=== PATIENT | female | born 1985 | race African-American/Black ===

== ENCOUNTER → 2021-07-13 12:56 | Outpatient (BNVA) | payer SELFPAY | PROVIDERS: PCP Family Medicine; Visit Provider Obstetrics & Gynecology ==

== ENCOUNTER 2022-03-04 14:02 | Outpatient (REF) | payer MEDICAID, SELFPAY ==
--- NOTE | ~2022-03-04 | US_ITS ---
EXAMINATION: US ABDOMEN COMPLETE CLINICAL INFORMATION: Fatty liver. COMPARISON: Ultrasound abdomen complete 09/25/2018 and 05/15/2014. TECHNIQUE: Real-time imaging of the abdominal viscera. FINDINGS: PANCREAS: The head and body the pancreas are normal. The tail is not well visualized due to bowel gas. ABDOMINAL AORTA: The proximal, mid, and distal segments are normal in caliber. INFERIOR VENA CAVA: Visualized portions are normal. LIVER: The liver is normal in size. The liver contour is normal. Echotexture is slightly increased suggestive of mild fatty infiltration. No focal hepatic lesion. There is no intrahepatic biliary duct dilatation seen. GALLBLADDER: Normal. The gallbladder is physiologically distended without evidence of stones, sludge, polyps, wall thickening or pericholecystic fluid. COMMON BILE DUCT: Normal in caliber measuring 0.3 cm in diameter. RIGHT KIDNEY: Normal. No hydronephrosis. No renal calculi or focal parenchymal lesions. The kidney measures 11.0 cm in maximum dimension. LEFT KIDNEY: Normal. No hydronephrosis. No renal calculi or focal parenchymal lesions. The kidney measures 11.7 cm in maximum dimension. SPLEEN: Normal. The spleen measures 9.6 cm in maximum dimension. FREE FLUID: None. US/US abdomen complete IMPRESSION: Slightly echogenic liver suggestive of mild fatty infiltration. Limited visualization of the tail the pancreas.
== END 2022-03-04 14:03 | disposition home or self-care (01) ==
LOC: HO.US 14:02
PROVIDERS: Visit Provider Family Medicine
DX: K76.0 Fatty (change of) liver, not elsewhere classified (principal)
CPT/HCPCS: 76700

== ENCOUNTER 2022-09-13 15:28 | Outpatient (REF) | payer MEDICAID, SELFPAY ==
[2022-09-13 18:28] LABS: CT PCR NOT DETECTED (Not Detect.); NG PCR NOT DETECTED (Not Detect.)
[2022-09-14 12:18] LABS: BV Int Neg Control Negative (Negative); BV Int Pos Control Positive (Positive)
[2022-09-22 11:38] LABS: HPV mRNA E6/E7 rflx Not Detected (Not Detected)
== END 2022-09-13 15:29 | disposition home or self-care (01) ==
LOC: HO.LNP 15:28
PROVIDERS: Visit Provider Advanced Practice Midwife
DX: Z01.419 Encounter for gynecological examination (general) (routine) without abnormal findings (principal); Z11.51 Encounter for screening for human papillomavirus (HPV)
CPT/HCPCS: 87480; 87491; 87510; 87591; 87624; 87660; 88142

== ENCOUNTER 2022-11-01 12:46 | Outpatient (REF) | payer MEDICAID, SELFPAY ==
--- NOTE | ~2022-11-01 | US_ITS ---
EXAMINATION: US PELVIS CLINICAL INFORMATION: History of fibroid COMPARISON: Ultrasound pelvis 09/04/2015 TECHNIQUE: Ultrasound of the pelvis is performed using both transabdominal and transvaginal transducers along with Doppler. Transvaginal imaging is performed due to inadequate visualization transabdominally. FINDINGS: UTERUS: The uterus is anteverted, anteflexed and measures 14.6 x 10.5 x 11.2 cm. The double wall endometrial thickness is 1.4 cm. The uterus is smooth in contour and has normal myometrial echogenicity. There are multiple hypoechoic lesions. 1. The largest lesion/fibroid measures 7.8 x 6.6 x 6.8 cm in the center of the body of the uterus. Previously it measured 6.5 x 6.7 x 6.7 cm. 2. Lesion in the posterior body of the uterus measures 2.0 x 1.4 x 1.8 cm. Previously it was not visualized. 3. Lesion in the right fundus of the uterus measures 4.6 x 4.2 x 3.9 cm. Previously it was not seen. ADNEXA: Right ovary measures 4.2 x 2.1 x 3.0 cm and volume 14.2 mL. No focal lesion seen. Previously right ovary measured 3.5 x 2.5 x 2.5 cm. Left ovary is not visualized. There is no free fluid in the cul-de-sac. US/US pelvic and transvaginal IMPRESSION: 1. Multiple uterine fibroids as described above. The largest fibroid is in the central uterus. 2. The right ovary is unremarkable. The left ovary is not seen. 3. There is no free fluid in the cul-de-sac.
[2022-11-01 16:20] LABS: Glucose Random 80 mg/dL (60-115)
[2022-11-02 06:43] LABS: Syphilis Screen Nonreactive (Nonreactive)
[2022-11-02 08:10] LABS: HBsAGNum1 0.39 S/CO (0.00-0.99); HIV AB/AG Nonreactive (Nonreactive); HIV Num 1 0.06 S/CO (0.00-0.99); Hepatitis B Surface Antigen Negative (Negative); ~HepC Num1 0.12 S/CO (0.00-0.79); ~Hepatitis C Antibody Nonreactive (Nonreactive)
== END 2022-11-01 12:47 | disposition home or self-care (01) ==
LOC: HO.US 12:46
PROVIDERS: PCP Family Medicine; Visit Provider Advanced Practice Midwife
DX: Z11.4 Encounter for screening for human immunodeficiency virus [HIV] (principal); Z11.3 Encounter for screening for infections with a predominantly sexual mode of transmission; Z86.018 Personal history of other benign neoplasm
CPT/HCPCS: 36415; 76830; 76856; 82947; 86780; 86803; 87340; 87389

== ENCOUNTER 2022-11-04 11:14 | Outpatient (REF) | payer MEDICAID, SELFPAY ==
[2022-11-04 13:38] LABS: Thyroid Stimulating Hormone 0.96 uIU/mL (0.32-4.0)
== END 2022-11-04 11:15 | disposition home or self-care (01) ==
LOC: HO.LAB 11:14
PROVIDERS: PCP Family Medicine; Visit Provider Advanced Practice Midwife
DX: E66.01 Morbid (severe) obesity due to excess calories (principal); D25.9 Leiomyoma of uterus, unspecified; I10 Essential (primary) hypertension; L65.9 Nonscarring hair loss, unspecified; Z31.9 Encounter for procreative management, unspecified; Z79.899 Other long term (current) drug therapy
CPT/HCPCS: 36415; 84443; 99212

== ENCOUNTER 2023-07-26 11:10 | Outpatient (REF) | payer MEDICAID, SELFPAY ==
[2023-07-29 17:23] LABS: TS Negative Control Passed; TS Panel A 0; TS Panel B 0; TS Positive Control Passed; TSpotTB Negative (Negative)
== END 2023-07-26 11:11 | disposition home or self-care (01) ==
LOC: HO.HHCL 11:10
PROVIDERS: Visit Provider Family Medicine
DX: Z00.00 Encounter for general adult medical examination without abnormal findings (principal)
CPT/HCPCS: 36415; 86481

== ENCOUNTER → 2023-08-25 13:30 | Outpatient (BNV) | payer MEDICAID, SELFPAY | PROVIDERS: PCP Family Medicine; Visit Provider Radiology Diagnostic Radiology | DX: N64.4 Mastodynia (principal) | CPT/HCPCS: 76642; 77066 ==

== ENCOUNTER 2023-08-25 13:39 | Outpatient (REF) | payer MEDICAID, SELFPAY ==
--- NOTE | ~2023-08-25 | US_ITS ---
EXAMINATION: MM DIAGNOSTIC DIGITAL BREAST TOMOSYNTHESIS, BILATERAL US BREAST LIMITED, BILATERAL MAMMOGRAPHY: CLINICAL INFORMATION: 38-year-old female, baseline exam, complaining of superior left breast pain 10:00 to 2:00 axis. COMPARISON: Mammography: None. Baseline exam. TECHNIQUE: Digital breast tomosynthesis is performed in both the craniocaudal and mediolateral oblique views along with computer-aided detection (CAD). Synthesized 2D images are generated from the tomosynthesis. In addition, additional bilateral full-field 3-D MLO views were obtained. FINDINGS: There are scattered areas of fibroglandular density (ACR BI-RADS breast composition Category b). Within the right breast at the 10:00 axis approximately 10 cm from the nipple, there is an oval 1 cm focal asymmetry, posterior one third, which will be evaluated by ultrasound. Otherwise, no suspicious masses, grouped calcifications, or areas of architectural distortion in the right breast. Within the left breast, there are are no suspicious masses, suspicious grouped calcifications, or areas of architectural distortion. There is no mammographic correlate to the area of breast pain in the 10:00 to 2:00 region. Only normal breast parenchyma is identified. ULTRASOUND: CLINICAL INFORMATION: 38-year-old female, baseline exam, complaining of superior left breast pain 10:00 to 2:00 axis. COMPARISON: None TECHNIQUE: Targeted sonographic evaluation of both breasts was performed using a high frequency linear transducer. The right breast was targeted at the 10:00 axis in the region of focal asymmetry seen on mammography. The left breast was targeted in the region of breast pain as described by the patient, 10-2 o'clock axis. Selected archived documentation. FINDINGS: RIGHT BREAST: In the 10:00 axis, 10 cm from the nipple, there is an oval either dirty cyst or possibly solid mass, wider than tall, circumscribed, possible mild through transmission, no internal color Doppler flow, measuring 0.9 x 0.4 x 1.0 cm. This is either a mildly complicated cyst or fibroadenoma or variant. It has benign features. Six-month interval follow-up mammography and ultrasound recommended. LEFT BREAST: There is no evidence of mass, abnormal shadowing, cystic abnormality, or edema within the soft tissue planes within the region of breast pain, 10:00 to 2:00 axis. No sonographic correlate present. US/US breast BI limited mamm only IMPRESSION: There are no findings suspicious for malignancy in either breast. Probably benign 1 cm circumscribed mass versus complicated cyst RIGHT breast 10:00 axis, for which six-month interval follow-up ultrasound and mammography recommended to ensure stability. No sonographic or mammographic correlate to the region of breast pain in the LEFT breast 10:00 to 2:00 axis. Recommend clinical management. OVERALL ASSESSMENT: Mammography: BI-RADS 3 - Probably benign finding(s) - 6 month follow-up suggested Ultrasound: BI-RADS 3 - Probably benign finding(s) - 6 month follow-up suggested RECOMMENDATION: 1. Patient should be managed based on the clinical impression left breast. 2. Otherwise, routine annual screening mammography at age 40. This patient's information was entered into a reminder system with a target due date for their next mammogram.
== END 2023-08-25 13:40 | disposition home or self-care (01) ==
LOC: HO.MAMMO 13:39
PROVIDERS: PCP Family Medicine; Visit Provider Family Medicine
DX: N64.4 Mastodynia (principal)
CPT/HCPCS: 76642; 77062; 77066

== ENCOUNTER 2023-12-15 09:45 | Outpatient (REF) | payer MEDICAID, SELFPAY ==
--- NOTE | ~2023-12-15 | XR_ITS ---
EXAMINATION: XR BILATERAL HIPS WITH AP PELVIS CLINICAL INFORMATION: Pain. COMPARISON: None available. TECHNIQUE: AP view of the pelvis and single views of each hip were obtained. FINDINGS: No fracture. Hip joint spaces are maintained. Alignment is anatomic. Sacroiliac joints and pubic symphysis are normal. No abnormal soft tissue calcifications. XR/XR hips AUDELIA min 3V IMPRESSION: Normal pelvis and hips.
== END 2023-12-15 09:46 | disposition home or self-care (01) ==
LOC: HO.HHCX 09:45
PROVIDERS: Visit Provider Registered Nurse
DX: G57.11 Meralgia paresthetica, right lower limb (principal)
CPT/HCPCS: 73522

== ENCOUNTER 2024-02-13 10:02 | Outpatient (REF) | payer MEDICAID, SELFPAY ==
--- NOTE | 2024-02-13 10:06 | EMG_ITS ---
Right tibial and peroneal motor studies were performed. Right superficial peroneal and sural sensory studies were performed and bilateral femoral lateral cutaneous sensory studies were performed. Right tibial H-reflex was obtained and paraspinal muscles were tested with a needle. IMPRESSION: 1. Bilateral lateral femoral cutaneous neuropathy. 2. Underlying mild sensory motor axonal peripheral neuropathy. MD HUONG Herrera/DEMETRIA / [id number]
== END 2024-02-13 10:03 | disposition home or self-care (01) ==
LOC: HO.NEURO 10:02
PROVIDERS: PCP Family Medicine; Visit Provider Family Medicine
DX: G57.11 Meralgia paresthetica, right lower limb (principal)
CPT/HCPCS: 95886; 95910

== ENCOUNTER 2024-02-23 12:58 | Outpatient (REF) | payer MEDICAID, SELFPAY ==
--- NOTE | ~2024-02-23 | US_ITS ---
EXAMINATION: US DIAGNOSTIC ULTRASOUND BREAST, RIGHT CLINICAL INFORMATION: 6 month follow-up for right breast mass versus complicated cyst 10:00 axis, 10 cm from the nipple, probably benign.. COMPARISON: 08/25/2023. TECHNIQUE: Ultrasound of the right breast is performed with real-time gama scale imaging and color Doppler. Attention was given to the abnormality at 10:00. FINDINGS: There is a stable oval probable complicated cyst with circumscribed margins, through-transmission, measuring 0.7 x 0.4 x 1.0 cm at the 10:00 axis of the right breast, 10 cm from the nipple. It is wider than tall. Internal echogenicity has become slightly more hypoechoic, near anechoic when compared with the prior exam. This strongly suggests this is a cyst. There is no associated color Doppler signal. This remains probably benign and six-month interval follow-up right breast ultrasound is recommended to ensure stability. US/US breast RT limited mamm only IMPRESSION: Complicated cyst 10:00 axis right breast as detailed, remaining probably benign, for which six-month interval follow-up again recommended to ensure stability or assess for interval change. ASSESSMENT: BI-RADS 3 - Probably benign finding(s) - 6 month follow-up suggested RECOMMENDATION: 6 Month F/U
== END 2024-02-23 12:59 | disposition home or self-care (01) ==
LOC: HO.MAMMO 12:58
PROVIDERS: PCP Family Medicine; Visit Provider Family Medicine
DX: R92.2 Inconclusive mammogram (principal)
CPT/HCPCS: 76642

== ENCOUNTER → 2024-02-23 14:30 | Outpatient (BNV) | payer MEDICAID, SELFPAY | PROVIDERS: PCP Family Medicine; Visit Provider Radiology Diagnostic Radiology | DX: N63.11 Unspecified lump in the right breast, upper outer quadrant (principal) | CPT/HCPCS: 76642 ==

== ENCOUNTER 2024-03-05 11:18 | Outpatient (REF) | payer MEDICAID, SELFPAY ==
[2024-03-06 11:31] LABS: Bacterial Vaginosis PCR POSITIVE (Negative); Candida Group PCR NOT DETECTED (Not Detect); Candida glab krusei PCR NOT DETECTED (Not Detect); Trichomonas vaginalis PCR NOT DETECTED (Not Detect)
[2024-03-06 11:38] LABS: CT PCR NOT DETECTED (Not Detect.); NG PCR NOT DETECTED (Not Detect.)
== END 2024-03-05 11:19 | disposition home or self-care (01) ==
LOC: HO.LAB 11:18
PROVIDERS: PCP Family Medicine; Visit Provider Advanced Practice Midwife
DX: Z01.419 Encounter for gynecological examination (general) (routine) without abnormal findings (principal); Z11.3 Encounter for screening for infections with a predominantly sexual mode of transmission; D25.9 Leiomyoma of uterus, unspecified; E66.01 Morbid (severe) obesity due to excess calories; I10 Essential (primary) hypertension; Z68.41 Body mass index [BMI] 40.0-44.9, adult
CPT/HCPCS: 0352U; 0353U; 99395

== ENCOUNTER 2024-03-05 11:18 | Outpatient (AMB) | payer MEDICAID, SELFPAY ==
[2024-03-05 11:42] VITALS: BP 122/70; BMI 44.7
--- NOTE | 2024-03-05 11:42 | MHC.OFFVIS ---
Vital Signs 03/05/24 11:42 Height 5 ft 6 in Weight 277 lb BMI 44.7 BP 122/70 Intake Visit Reasons: anat Design Maker Required: No Information Interpreted: clinical only Systems Software Engineer: Systems Software Engineer Present Allergies No Known Allergies Allergy (Verified 03/05/24 11:42) Medication List - Last Reconciled 03/05/24 by Valerie Santana CNM albuterol sulfate 90 mcg/actuation (Proventil HFA) 2 puffs inhalation Q4-6H PRN azelastine 2 sprays intranasal BID PRN blood pressure test kit-large As directed cetirizine 10 mg PO DAILY PRN docusate sodium 100 mg PO DAILY hydrochlorothiazide 25 mg PO DAILY loratadine 10 mg PO DAILY Is last menstrual period known: Yes Last menstrual period: 02/24/24 Do you need a note to return to daycare/school/sports/work: No HPI HPI anat: Details: Patient is here for an annual exam. In January which was soon after she had come back [facility] to trips to visit her in [place], she had her. And then a day or 2 after she had a gush blood and some thing kind of watery and then another day or 2 later she had something similar again her period in February was normal. She did a test at the time in January and it was negative. She is wondering what that might of been she is curious what is going on with her fibroids she would like full testing for STDs. She is at this time open to and has been trying for a while. [facility] Medical History High blood pressure Surgical History History of repair of ACL Social History Alcohol intake: current Alcohol intake frequency: holidays/special occasions only Substance Use Type: Marijuana Female Reproductive History Menstrual Age of Menarche: 12 Duration of menses: 3-5 days Date of last menstrual period: 02/24/24 control method: none Total pregnancies: 1 Full term: 0 Date of Mammogram: 09/13/22 (negative, previous pap 2018 wnl) History of abnormal mammogram: No Physical Exam Vital Signs: Last Vital Signs BP 122/70 03/05/24 11:42 BMI result Body Mass Index 44.7 Const General: healthy appearing, comfortable, no acute distress, well developed and alert Nutritional Appearance: average body habitus Orientation/consciousness: patient oriented x3 Limitations: no limitations HEENT Head: Yes normocephalic Neck Neck: Yes normal visual inspection Thyroid: Thyroid normal Chest Chest palpation & inspection: normal inspection of the chest Breast/axilla inspection: normal inspection of the breasts and normal inspection of the axillae Breast/axilla palpation: normal palpation of the breasts and normal palpation of the axillae Resp Effort & Inspection: normal respiratory effort GI Inspection: Yes normal to inspection, No Abdominal wall edema and No distended Palpation (GI): Soft to palpation and nontender Other: Normal external exam vagina pink and moist cervix nulliparous consistent with follicular phase round pink nulliparous os tiny amount of clear mucus at os at end of exam. Uterus slightly difficult to feel secondary to adipose. Very good muscle tone with Kegel. General: Yes bladder normal to palpation External Female Exam: normal external appearance and normal appearance of the urethra Speculum Exam - Vagina: normal appearance of the vagina, normal palpation and normal vaginal discharge Speculum Exam - Cervix: normal appearance of the cervix, normal palpation and nontender Bimanual exam- vagina & uterus: normal bimanual exam, normal palpation, uterine size normal, bladder normal to palpation, consistency normal, normal palpation, uterine mobility normal, uterine shape normal, No Cervical tenderness present, non-tender and no cervical motion tenderness Bimanual Exam- Adnexa, other: normal adnexae, no masses, normal and No adnexal tenderness Neuro General: patient oriented x3 Results Reviewed Results Reviewed: Name: Miguel Angel Hall Age/Sex: 37/F Attending: Valerie Santana CNM : 1985 Submitted by: Valerie Santana CNM Copies to: MR #: [id number] Status: DEP REF Collected: 09/13/22 Location: [facility] Received: 09/14/22 Interpretation Satisfactory for evaluation. Negative for intraepithelial lesion or malignancy. Coccobacilli consistent with shift in vaginal joshua. HPV mRNA E6/E7: NOT DETECTED This assay detects E6/E7 viral messenger RNA (mRNA) from 14 high-risk HPV types (16, 18, 31, 33, 35, 39, 45, 51, 52, 56, 58, 59, 66, 68) HPV testing performed by [facility], [place], [place]. See reference laboratory portion of the EMR for entire report. Clinical Information LMP: 09/06/22 Previous PAP test: 03/07/18, WNL Material Received ThinPrep-Cervical Electronically Signed By: Wanda Irvin 10/10/22 1553 The Pap Test is a screening procedure with the inherent possibility of both false negative and false positive results. Results should be interpreted in the context of historic and current clinical findings. Reliability of the Pap Test is enhanced by performing the test on a regular repetitive basis. Patient: Miguel Angel Hall Age/Sex: 37/F MR#: [id number] Page 1 of 1 Assessment & Plan Assessment & Plan (1) Cervical cancer screening: Comment: 09/13/22 pap= neg w neg hpv Code(s): Z12.4 - Encounter for screening for malignant neoplasm of cervix Category: Medical (2) Well woman exam with routine gynecological exam: Code(s): Z01.419 - Encounter for gynecological examination (general) (routine) without abnormal findings Category: Medical (3) Screen for sexually transmitted diseases: Code(s): Z11.3 - Encounter for screening for infections with a predominantly sexual mode of transmission Category: Medical (4) Fibroid uterus: Code(s): D25.9 - Leiomyoma of uterus, unspecified Category: Medical (5) Obesity, morbid, BMI 40.0-49.9: Code(s): E66.01 - Morbid (severe) obesity due to excess calories Category: Medical (6) High blood pressure: Code(s): I10 - Essential (primary) hypertension Category: Medical (7) Patient desires : Comment: Again reviewed risks. Working on weight loss, recommend multivitamin with folic acid daily. Code(s): Z31.9 - Encounter for procreative management, unspecified Category: Medical Plan -----Discussed in this visit the following: healthy balanced diet, regular and consistent exercise, getting recommended health screens, doing the best she can for her particular health concerns, kegel exercises, pap smear screening and followup recommendations, mammography screening and SBE, normal changes in cycles in her life stage--- . Again reviewed the risks of at her age and also being more irregular ovulation that can occur the possibility of a that was an early miscarriage that resulted in the unusual bleeding pattern in January can not be excluded even if the test was negative we will just simply never know. Recommend taking a multivitamin daily if she is open to . Which she is, discussed signs and symptoms of ovulation to optimize her chances given that she travels on a regular but irregular basis to [place] to be with her . She recently had a mammogram because she would some right-sided pain in her breast and her primary care recommended it and it was all negative and reassuring. She would be interested in another ultrasound to see if the fibroids have grown. She is working on weight loss and has lost from 285-277 today and feels good about that and her blood pressure was good today. She is interested in full STD testing will order for her. We will have a follow-up visit after the ultrasound. Orders: Orders Hepatitis B Surface Antigen Today Z11.3 - Encounter for screening for infections with a predominantly sexual mode of transmission Hepatitis C Antibody Today Z11.3 - Encounter for screening for infections with a predominantly sexual mode of transmission HIV Ab/Ag Today Z11.3 - Encounter for screening for infections with a predominantly sexual mode of transmission Syphilis Screen Today Z11.3 - Encounter for screening for infections with a predominantly sexual mode of transmission US pelvic and transvaginal Today D25.9 - Leiomyoma of uterus, unspecified Coding Level of Care Code Est Pt Prev Care [id number]([id number]) Diagnoses Cervical cancer screening Z12.4 Well woman exam with routine gynecological exam Z01.419 Screen for sexually transmitted diseases Z11.3 Fibroid uterus D25.9 Obesity, morbid, BMI 40.0-49.9 E66.01 High blood pressure I10 Patient desires Z31.9
== END 2024-03-05 13:00 | disposition home or self-care (01) ==
PROVIDERS: PCP Family Medicine; Visit Provider Advanced Practice Midwife
DX: Z12.4 Encounter for screening for malignant neoplasm of cervix (principal); Z01.419 Encounter for gynecological examination (general) (routine) without abnormal findings; Z11.3 Encounter for screening for infections with a predominantly sexual mode of transmission; D25.9 Leiomyoma of uterus, unspecified; E66.01 Morbid (severe) obesity due to excess calories; I10 Essential (primary) hypertension; Z31.9 Encounter for procreative management, unspecified
CPT/HCPCS: 99395

== ENCOUNTER 2024-03-11 14:29 | Outpatient (REF) | payer MEDICAID, SELFPAY ==
--- NOTE | ~2024-03-11 | US_ITS ---
EXAMINATION: US PELVIS CLINICAL INFORMATION: Leiomyoma of uterus, last menstrual period February 24, 2024. COMPARISON: November 01, 2022. TECHNIQUE: Ultrasound of the pelvis is performed using both transabdominal and transvaginal transducers along with Doppler. Transvaginal imaging is performed due to inadequate visualization transabdominally. FINDINGS: Uterus is anteverted and measures 13.8 x 8.5 x 10.0 cm, volume 610.7 mL. Endometrial thickness is 10 mm. Uterine masses characteristic of fibroids as follows: 5.7 x 6.3 x 5.7 cm, previously 7.8 x 6.7 x 6.8 cm. 2.8 x 2.9 x 2.4 cm, previously 4.6 x 4.2 x 3.9 cm. 1.8 x 1.7 x 1.5 cm, previously 2.0 x 1.4 x 1.8 cm. 2.3 x 2.8 x 2.3 cm, not previously documented. Small amount of free fluid. Trace amount of free fluid in the right adnexa. Right ovary measures 4.0 x 2.8 x 2.4 cm, volume 14.5 mL and is unremarkable. Left ovary measures 4.5 x 2.3 x 2.5 cm, volume of 13.4 mL and is unremarkable. Limited visualization due to enlarged fibroid uterus and bowel gas. Fibroids were better visualized on transabdominal ultrasound images. Echogenic foci along the periphery of the cervix, possibly representing calcifications. US/US pelvic and transvaginal IMPRESSION: 1. Enlarged, fibroid uterus. 2. Endometrial thickness is 10 mm. Limited visualization of the endometrium due to uterine fibroids. 3. Unremarkable bilateral ovaries.
== END 2024-03-11 14:30 | disposition home or self-care (01) ==
LOC: HO.US 14:29
PROVIDERS: PCP Family Medicine; Visit Provider Advanced Practice Midwife
DX: D25.9 Leiomyoma of uterus, unspecified (principal)
CPT/HCPCS: 76830; 76856

== ENCOUNTER 2024-03-12 09:35 | Outpatient (REF) | payer MEDICAID, SELFPAY ==
[2024-03-12 11:45] LABS: Hematocrit 35.1 % (37.0-47.0); Mean Corpuscular HGB Conc 31.3 g/dl (31.0-35.0); Mean Corpuscular Hemoglobin 25.5 pg (27.0-33.0); Mean Corpuscular Volume 81.4 fL (80.0-98.0); Mean Platelet Volume 10.2 fL (9.4-12.3); Platelet Count 302 X10*3/uL (160-400); Red Blood Count 4.31 X10*6/uL (4.20-5.50); Red Cell Distribution Width 15.7 % (11.0-16.0); White Blood Count 4.6 X10*3/uL (4.8-10.8)
[2024-03-12 11:58] LABS: Estimated Average Glucose 123 mg/dL; Hemoglobin A1c % 5.9 % (<6.0)
[2024-03-12 12:11] LABS: Alanine Aminotransferase 15 U/L (0-31); Albumin Level 4.4 g/dL (3.5-5.0); Alkaline Phosphatase 66 U/L (39-117); Anion Gap 15 (12-20); Aspartate Amino Transferase 15 U/L (5-31); Bilirubin Direct < 0.2 mg/dL (0.0-0.5); Bilirubin Total 0.2 mg/dL (0.0-1.0); Blood Urea Nitrogen 14 mg/dL (9-16); C Reactive Protein 0.93 mg/dL (< or = 0.50); Calcium 9.6 mg/dL (8.4-10.2); Carbon Dioxide 25 mmol/L (22-29); Chloride 104 mmol/L (96-108); Cholesterol 120 mg/dL (<200); Estimated Glomerular Filt Rate > 60; Glucose Random 90 mg/dL (60-115); HDL Cholesterol 48 mg/dL (>40); LDL Cholesterol Calculated 65 mg/dL (<100); Potassium 4.1 mmol/L (3.3-5.1); Sodium 140 mmol/L (135-145); Total Protein 8.1 g/dL (6.5-8.0); Triglycerides 38 mg/dL (<150)
[2024-03-12 12:23] LABS: Rheumatoid Factor < 13.0 IU/mL (<15.0)
[2024-03-12 12:30] LABS: Thyroid Stimulating Hormone 1.29 uIU/mL (0.32-4.0); Vitamin D 25-OH Total 25.1 ng/mL (>30)
[2024-03-12 12:32] LABS: Erythrocyte Sedimentation Rate 34 MM/HR (0-20)
[2024-03-12 12:34] LABS: Folate 8.7 ng/mL (> or = 4.0); Vitamin B12 482 pg/mL (200-900)
[2024-03-12 17:31] LABS: Creatinine Urine 151.83 mg/dL
[2024-03-13 08:03] LABS: ~HepC Num1 0.12 S/CO (0.00-0.79); ~Hepatitis C Antibody Nonreactive (Nonreactive)
[2024-03-13 08:07] LABS: HBS Num1 36.85 mIU/mL (0-7.99); HBc Num1 0.11 S/CO (0.00-0.79); HBsAGNum1 0.53 S/CO (0.00-0.99); HIV AB/AG Nonreactive (Nonreactive); HIV Num 1 0.06 S/CO (0.00-0.99); Hepatitis B Core Antibody Nonreactive (Nonreactive); Hepatitis B Surface Antigen Negative (Negative); ~HepC Num1 0.11 S/CO (0.00-0.79); ~Hepatitis B Surface Antibody REACTIVE (Nonreactive); ~Hepatitis C Antibody Nonreactive (Nonreactive)
[2024-03-13 08:15] LABS: Hepatitis A Antibody IgG REACTIVE (Nonreactive); ~Hepatitis A Antibody IgG 10.88 S/CO (0.00-0.99)
[2024-03-13 08:24] LABS: Syphilis Screen Nonreactive (Nonreactive)
[2024-03-13 08:58] LABS: Lyme Abs Screen <0.90 index
[2024-03-14 06:38] LABS: RPR Rapid Plasma Reagin NON-REACTIVE (NON-REACTIVE)
[2024-03-14 16:14] LABS: Anti Nuclear Antibody Screen NEGATIVE (NEGATIVE)
[2024-03-14 18:14] LABS: Methylmalonic Acid 62 nmol/L (87-318)
[2024-03-14 23:03] LABS: Prot Elec - Alpha1 0.3 g/dL (0.2-0.3); Prot Elec - Alpha2 0.8 g/dL (0.5-0.9); Prot Elec - Beta 1 0.6 g/dL (0.4-0.6); Prot Elec - Beta 2 0.5 g/dL (0.2-0.5); Prot Elec - Gamma 1.4 g/dL (0.8-1.7); Prot Elec - Total Protein 7.6 g/dL (6.1-8.1)
== END 2024-03-12 09:36 | disposition home or self-care (01) ==
LOC: HO.HHCL 09:35
PROVIDERS: Advanced Practice Midwife; Visit Provider Family Medicine
DX: I10 Essential (primary) hypertension (principal); G62.89 Other specified polyneuropathies; Z11.3 Encounter for screening for infections with a predominantly sexual mode of transmission
CPT/HCPCS: 36415; 80048; 80061; 80076; 82043; 82306; 82570; 82607; 82746; 83036; 83921; 84165; 84439; 84443; 85027; 85652; 86038; 86140; 86431; 86592; 86617; 86618; 86704; 86706; 86708; 86780; 86803; 87340; 87389

== ENCOUNTER 2024-03-13 09:14 | Outpatient (REF) | payer MEDICAID, SELFPAY ==
[2024-03-13 10:33] LABS: HBsAGNum1 0.42 S/CO (0.00-0.99); HIV AB/AG Nonreactive (Nonreactive); HIV Num 1 0.04 S/CO (0.00-0.99); Hepatitis B Surface Antigen Negative (Negative)
[2024-03-14 18:39] LABS: Homocysteine 7.6 umol/L (<10.4)
== END 2024-03-13 09:15 | disposition home or self-care (01) ==
LOC: HO.LAB 09:14
PROVIDERS: Absent Provider Advanced Practice Midwife; PCP Family Medicine; Visit Provider Family Medicine
DX: G62.89 Other specified polyneuropathies (principal); Z11.3 Encounter for screening for infections with a predominantly sexual mode of transmission
CPT/HCPCS: 36415; 83090; 87340; 87389

== ENCOUNTER 2024-03-25 09:00 | Outpatient (RCR) | payer MEDICAID, SELFPAY ==
[2024-02-15 10:09] VITALS: BP 125/69
--- NOTE | 2024-02-15 11:17 | MHC.PT.EP ---
[facility] [place] Office [place] Office [place] Office [address] Diana Burnham [address] [phone] F: [phone] F: [phone] F: [phone] F: [phone] Physical Therapy Plan of Care Date of Evaluation: 02/15/24 Date of Surgery: n/a Diagnosis: Trochanteric bursitis of right hip Assessment: Pt is a pleasant 38yo F who presents to PT with R hip pain radiating into RLE. Her pain does not radiate past her knee. She presents to PT with current impairments in pain, decreased lumbar ROM, posterior chain tightness, decreased hip/glute strength, soft tissue restrictions, impaired posture, and impaired body mechanics. She is limited functionally by bending, prolonged sitting, prolonged standing, and sleeping. She is an excellent candidate for skilled PT in order to address current impairments to facilitate return to PLOF. She is recommended to be seen 2x/week for 4 weeks and will be reassessed at that time Frequency and Duration: The patient will be seen 2x/week for 4 weeks Short Term Goals: Pt will be I with HEP to promote self management of symptoms Pt will have centralization of symptoms Manufacturing Assembler Goals: Pt will tolerate prolonged standing > 20 minutes without radicular symptoms Pt will demonstrate ability to squat and curing pickling packer object from the floor with proper mechanics Treatment Plan: Modalities to reduce pain, spasms and effusion. Manual therapy to restore motion and function. Therapeutic exercise to improve strength and flexibility. Neuromuscular re-education for posture and balance. Therapeutic activities to return to functional activities of daily living. Electronically signed by: Luisa Giraldo, PT, DPT Please sign and return to therapist. Thank you for your referral.
--- NOTE | 2024-03-25 12:56 | MHC.PT.DC ---
[facility] [place] [facility] [place] [facility] [place] Office [address] Diana Burnham [address] [phone] F: [phone] F: [phone] F: [phone] F: [phone] Physical Therapy Discharge Report Diagnosis: Trochanteric bursitis of right hip Date of Surgery: n/a Date of Evaluation: 02/15/24 Date of Discharge: 03/25/24 Treatments to Date: 9 Cancellations to Date: No Shows to Date: Discharge Status: Improved Function Independent with HEP Discharge Summary: Pt has made good progress throughout PT. She has had centralization of symptoms and has demonstrated improvements in postural awareness. She is independent with HEP. She is being D/C from skilled PT at this time. She has a copy of printed HEP and theraband Electronically signed by: Luisa Giraldo, PT, DPT Please sign and return to therapist. Thank you for your referral.
== END 2024-03-25 12:56 | disposition home or self-care (01) ==
LOC: HO.PT 09:00
PROVIDERS: PCP Family Medicine; Visit Provider Internal Medicine
DX: M70.61 Trochanteric bursitis, right hip (principal)
CPT/HCPCS: 97110; 97112; 97140; 97161

== ENCOUNTER 2024-03-27 09:27 | Outpatient (AMB) | payer MEDICAID, SELFPAY ==
--- NOTE | 2024-03-27 09:27 | MHC.OFFVIS ---
Intake Visit Reasons: TV Follow up US Crystal Inspector Required: No Allergies No Known Allergies Allergy (Verified 03/27/24 09:28) Medication List - Last Reconciled 03/27/24 by Valerie Santana CNM albuterol sulfate 90 mcg/actuation (Proventil HFA) 2 puffs inhalation Q4-6H PRN amitriptyline 10 mg PO BEDTIME azelastine 2 sprays intranasal BID PRN blood pressure test kit-large As directed cetirizine 10 mg PO DAILY PRN docusate sodium 100 mg PO DAILY hydrochlorothiazide 25 mg PO DAILY loratadine 10 mg PO DAILY Is last menstrual period known: Yes Last menstrual period: 03/22/24 HPI HPI TV Follow up US: Details: Lengthy tele visit to discuss patient's lab results and ultrasound results checking her fibroids as well as her efforts to conceive and concerns about fertility and full discussion about her health around these issues. I reviewed her ultrasound in great detail documenting changes to the fibroids as well as reviewed her menstrual cycle of the last 2 months and going forward when she could anticipate having her menses and peak days of ovulation/fertility. Her efforts at trying to conceive her complicated by the fact that her lives in [place] and she travels there a few times a year and sometimes it has not at the right time she is planning to travel the end of March and be there for possibly 2 months so we reviewed her history in great detail. She has hypertension and I reviewed her medication and suggested she make sure she have conversations with her primary about what medications were safe to be on she said she has already had these conversations she is working on weight loss she has stopped the medication she is taking for her neuropathy on her leg as it was not helping and she had some other blood test done that she wanted to review with me some of them she needs to review with her primary care provider.. Her last periods were as follows January 26 February 23 March 22 and going forward if is pattern help true she could be expected to have her. April 18 and May 15 just corresponding possible predicted ovulation periods of February 08 March 0704/04 and 05/01/24 4 there about with only the last 1 being when where she might be near her to try to conceive discussed achieving peak health as best as possible Augmentin her efforts with ovulation predictor kits and writing down her symptoms of vaginal cervical secretions and keeping track of them and I described what to look for in detail. In addition she may at her own discretion seek out gynecologic advice about her fibroids but she does not really have time before the next trip. Discussed that there are new procedures other than surgery to deal with fibroids and that may or may not be of benefit to her. [facility] Medical History High blood pressure Surgical History History of repair of ACL Social History Alcohol intake: current Alcohol intake frequency: holidays/special occasions only Substance Use Type: Marijuana Female Reproductive History Menstrual Age of Menarche: 12 Date of last menstrual period: 03/22/24 control method: none Date of last pap smear: 09/14/22 (neg.) History of abnormal pap smear: No Telehealth Telehealth Telehealth Platform: [facility] Location of provider rendering services: practice address Location of patient: address on file Telehealth method: video Patient verbally consented to treatment: Yes Patient verbally consented to billing insurance company: Yes Patient informed of any privacy concerns related to visit: Yes Minutes spent on Phone/Video with Pt.: 28 Results Reviewed Results Reviewed: Patient: Miguel Angel Hall MR#: [id number] : 1985 Acct:[id number] Age/Sex: 38 / F ADM Date: 03/11/24 Loc: HO.US Attending Dr: Valerie Santana CNM Ordering Physician: Valerie Santana CNM Date of Service: 03/11/24 Procedure(s): US pelvic and transvaginal Accession Number(s): [id number] cc: Juana Pink DO; Valerie Santana CNM~ EXAMINATION: US PELVIS CLINICAL INFORMATION: Leiomyoma of uterus, last menstrual period February 24, 2024. COMPARISON: November 01, 2022. TECHNIQUE: Ultrasound of the pelvis is performed using both transabdominal and transvaginal transducers along with Doppler. Transvaginal imaging is performed due to inadequate visualization transabdominally. FINDINGS: Uterus is anteverted and measures 13.8 x 8.5 x 10.0 cm, volume 610.7 mL. Endometrial thickness is 10 mm. Uterine masses characteristic of fibroids as follows: 5.7 x 6.3 x 5.7 cm, previously 7.8 x 6.7 x 6.8 cm. 2.8 x 2.9 x 2.4 cm, previously 4.6 x 4.2 x 3.9 cm. 1.8 x 1.7 x 1.5 cm, previously 2.0 x 1.4 x 1.8 cm. 2.3 x 2.8 x 2.3 cm, not previously documented. Small amount of free fluid. Trace amount of free fluid in the right adnexa. Right ovary measures 4.0 x 2.8 x 2.4 cm, volume 14.5 mL and is unremarkable. Left ovary measures 4.5 x 2.3 x 2.5 cm, volume of 13.4 mL and is unremarkable. Limited visualization due to enlarged fibroid uterus and bowel gas. Fibroids were better visualized on transabdominal ultrasound images. Echogenic foci along the periphery of the cervix, possibly representing calcifications. US/US pelvic and transvaginal IMPRESSION: 1. Enlarged, fibroid uterus. 2. Endometrial thickness is 10 mm. Limited visualization of the endometrium due to uterine fibroids. 3. Unremarkable bilateral ovaries. Dictated By: Faye Eason MD Signed By: <Electronically signed by Faye Eason MD in OV> 03/26/24 0706 DD/ 1457 TD/TT: [employer] Agent: v Assessment & Plan Assessment & Plan (1) Patient desires : Comment: Again reviewed risks. Working on weight loss, recommend multivitamin with folic acid daily. Code(s): Z31.9 - Encounter for procreative management, unspecified Category: Medical (2) High blood pressure: Code(s): I10 - Essential (primary) hypertension Category: Medical (3) Fibroid uterus: Code(s): D25.9 - Leiomyoma of uterus, unspecified Category: Medical (4) Cervical cancer screening: Comment: 09/13/22 pap= neg w neg hpv Code(s): Z12.4 - Encounter for screening for malignant neoplasm of cervix Category: Medical (5) Obesity, morbid, BMI 40.0-49.9: Code(s): E66.01 - Morbid (severe) obesity due to excess calories Category: Medical Plan Lengthy tele visit to discuss patient's lab results and ultrasound results checking her fibroids as well as her efforts to conceive and concerns about fertility and full discussion about her health around these issues. I reviewed her ultrasound in great detail documenting changes to the fibroids as well as reviewed her menstrual cycle of the last 2 months and going forward when she could anticipate having her menses and peak days of ovulation/fertility. Her efforts at trying to conceive her complicated by the fact that her lives in [place] and she travels there a few times a year and sometimes it has not at the right time she is planning to travel the end of March and be there for possibly 2 months so we reviewed her history in great detail. She has hypertension and I reviewed her medication and suggested she make sure she have conversations with her primary about what medications were safe to be on she said she has already had these conversations she is working on weight loss she has stopped the medication she is taking for her neuropathy on her leg as it was not helping and she had some other blood test done that she wanted to review with me some of them she needs to review with her primary care provider.. Her last periods were as follows January 26 February 23 March 22 and going forward if is pattern help true she could be expected to have her. April 18 and May 15 just corresponding possible predicted ovulation periods of February 08 March 0704/04 and 05/01/24 4 there about with only the last 1 being when where she might be near her to try to conceive discussed achieving peak health as best as possible Augmentin her efforts with ovulation predictor kits and writing down her symptoms of vaginal cervical secretions and keeping track of them and I described what to look for in detail. In addition she may at her own discretion seek out gynecologic advice about her fibroids but she does not really have time before the next trip. Discussed that there are new procedures other than surgery to deal with fibroids and that may or may not be of benefit to her. Coding Level of Care Code Tele Est Pt Level 3 (01258) Diagnoses Patient desires Z31.9 High blood pressure I10 Fibroid uterus D25.9 Cervical cancer screening Z12.4 Obesity, morbid, BMI 40.0-49.9 E66.01 Time Spent (min) 38 Comment 3cr/28 video w pt/7 charting=38
== END 2024-03-27 10:14 | disposition home or self-care (01) ==
LOC: HO.HWSM 09:27
PROVIDERS: PCP Family Medicine; Visit Provider Advanced Practice Midwife
DX: Z31.9 Encounter for procreative management, unspecified (principal); I10 Essential (primary) hypertension; D25.9 Leiomyoma of uterus, unspecified; Z12.4 Encounter for screening for malignant neoplasm of cervix; E66.01 Morbid (severe) obesity due to excess calories
CPT/HCPCS: 99213

== ENCOUNTER → 2024-03-27 09:27 | Outpatient (BNVA) | payer MEDICAID, SELFPAY | PROVIDERS: PCP Family Medicine; Visit Provider Advanced Practice Midwife ==

== ENCOUNTER 2024-07-10 10:57 | Outpatient (AMB) | payer MEDICAID, SELFPAY ==
[2024-07-10 11:03] VITALS: BP 136/80; BMI 44.7
--- NOTE | 2024-07-10 11:03 | A.OFFVIS_ITS ---
Vital Signs 07/10/24 11:03 Height 5 ft 6 in Weight 277 lb BMI 44.7 BP 136/80 Intake Visit Reasons: irregular menses Software Quality Assurance Specialist Required: No Information Interpreted: clinical only Allergies No Known Allergies Allergy (Verified 07/10/24 11:03) Medication List - Last Reconciled 07/10/24 by Valerie Santana CNM albuterol sulfate 90 mcg/actuation (Proventil HFA) 2 puffs inhalation Q4-6H PRN blood pressure test kit-large As directed docosahexaenoic acid ( DHA) mg PO Is last menstrual period known: Yes Last menstrual period: 07/08/24 Do you need a note to return to daycare/school/sports/work: No HPI HPI irregular menses: Details: Patient is here because she experienced an unusual popping sensation with a release of a little bit of clear water with a little bit of blood and she shows with her hand that it was about a 4 or5 inches long in amount but it was not a clot. She said it was watery with a little bit of blood in she had no pain associated with it whatsoever. she reports her LMP as being June 29 and it lasted 6 days. This event happened done Monday the and she went to the same day care office downstairs at the [facility] she said that they recommended that she see Gynecology and they did a full exam w pelvic and tests and said she had no infection and there was nothing else there. She has been following her cycles because she has been trying to get . Her previous menses was June 01 and it lasted 7 days she sees her in [place] and when she goes there she does fine and has no problems with blood pressure or anything and she treats herself with herbs and she is fine when she is there. on June 22 she returned from [place]. she said that they did a test on Monday the , at the same day care center and it was also negative. (she had menses since she she returned from [place] as well on 06/29/24,.) She is not sexually active when she is here. She knows she has fibroids. she left on her trip to [place] after a discussion of her fibroids earlier this year, and I had recommended to her that she consider seeing somebody who could give her better advice about whether not she should do something about her fibroids and would that help her get , as she has been trying for some time. on my advice she did get the ovulation predictor kits, but says that she did not give her clear answers and it does not line up with the information on her madai about her predicted ovulation. She says the last labor expediter she spoke to told her to leave the fibroids alone. I shared with her that I could not advise her one way or the other as i am not a specialist nor infertility specialist nor labor expediter, but I recommended that she have a conversation about the fertility questioned and the fibroids with somebody who is better equipped to give her advice about this then I. This is the advice I gave her previously as well. I offered to repeat the ultrasound to see if there was any change in anything, I also offered to do an exam and check for any thing that I might see that could have popped and caused that sensation she experienced, but she declined and she said she would leave it alone she appeared frustrated. and we did review all of these options about 3 times, and I did ask her what she wanted, and she said she just wanted to leave it alone . the patient left w no exam and decline offers for any further testing. and indicated reluctance to follow recomendations to see any specialists at [facility], [place]. [facility] Medical History High blood pressure Surgical History History of repair of ACL Social History Alcohol intake: current Alcohol intake frequency: holidays/special occasions only Substance Use Type: Marijuana Female Reproductive History Menstrual Age of Menarche: 12 Duration of menses: <3 days Date of last menstrual period: 07/08/24 control method: none Total pregnancies: 1 Full term: 0 Physical Exam Vital Signs: Last Vital Signs BP 136/80 07/10/24 11:03 BMI result Body Mass Index 44.7 Assessment & Plan Assessment & Plan (1) Patient desires : Comment: Again reviewed risks. Working on weight loss, recommend multivitamin with folic acid daily. Code(s): Z31.9 - Encounter for procreative management, unspecified Category: Medical (2) Fibroid uterus: Code(s): D25.9 - Leiomyoma of uterus, unspecified Category: Medical (3) Obesity, morbid, BMI 40.0-49.9: Code(s): E66.01 - Morbid (severe) obesity due to excess calories Category: Medical Plan Patient is here because she experienced an unusual popping sensation with a release of a little bit of clear water with a little bit of blood and she shows with her hand that it was about a 4 or5 inches long in amount but it was not a clot. She said it was watery with a little bit of blood in she had no pain associated with it whatsoever. she reports her LMP as being June 29 and it lasted 6 days. This event happened done Monday the and she went to the same day care office downstairs at the [facility] she said that they recommended that she see Gynecology and they did a full exam w pelvic and tests and said she had no infection and there was nothing else there. She has been following her cycles because she has been trying to get . Her previous menses was June 01 and it lasted 7 days she sees her in [place] and when she goes there she does fine and has no problems with blood pressure or anything and she treats herself with herbs and she is fine when she is there. on June 22 she returned from [place]. she said that they did a test on Monday the , at the same day care center and it was also negative. (she had menses since she she returned from [place] as well on 06/29/24,.) She is not sexually active when she is here. She knows she has fibroids. she left on her trip to [place] after a discussion of her fibroids earlier this year, and I had recommended to her that she consider seeing somebody who could give her better advice about whether not she should do something about her fibroids and would that help her get , as she has been trying for some time. on my advice she did get the ovulation predictor kits, but says that she did not give her clear answers and it does not line up with the information on her madai about her predicted ovulation. She says the last labor expediter she spoke to told her to leave the fibroids alone. I shared with her that I could not advise her one way or the other as i am not a specialist nor infertility specialist nor labor expediter, but I recommended that she have a conversation about the fertility question and the fibroids with somebody who is better equipped to give her advice about this then I. This is the advice I gave her previously as well. I offered to repeat the ultrasound to see if there was any change in anything, I also offered to do an exam and check for any thing that I might see that could have popped and caused that sensation she experienced, but she declined and she said she would leave it alone she appeared frustrated. and we did review all of these options about 3 times, and I did ask her what she wanted, and she said she just wanted to leave it alone . the patient left w no exam and decline offers for any further testing. and indicated reluctance to follow recomendations to see any specialists at [facility] [place]. Coding Level of Care Code Est Pt Level 3 (22456) Diagnoses Patient desires Z31.9 Fibroid uterus D25.9 Obesity, morbid, BMI 40.0-49.9 E66.01
== END 2024-07-10 11:56 | disposition home or self-care (01) ==
PROVIDERS: PCP Family Medicine; Visit Provider Advanced Practice Midwife
DX: Z31.9 Encounter for procreative management, unspecified (principal); D25.9 Leiomyoma of uterus, unspecified; E66.01 Morbid (severe) obesity due to excess calories
CPT/HCPCS: 99213

== ENCOUNTER → 2024-07-10 10:57 | Outpatient (BNVA) | payer MEDICAID, SELFPAY | PROVIDERS: PCP Family Medicine; Visit Provider Advanced Practice Midwife | DX: Z31.9 Encounter for procreative management, unspecified (principal); D25.9 Leiomyoma of uterus, unspecified; E66.01 Morbid (severe) obesity due to excess calories | CPT/HCPCS: 99212 ==

== ENCOUNTER 2024-08-29 11:06 | Outpatient (REF) | payer MEDICAID, SELFPAY ==
--- NOTE | ~2024-08-29 | US_ITS ---
EXAMINATION: US DIAGNOSTIC ULTRASOUND BREAST, RIGHT CLINICAL INFORMATION: Follow-up for probable complicated cyst in the right breast at 10:00 on ultrasound.. COMPARISON: Comparison is made with relevant prior imaging. TECHNIQUE: Ultrasound of the breast is performed with real-time gama scale imaging and color Doppler. FINDINGS: Targeted color Doppler ultrasound scanning at 10:00 7 cm from the nipple in the right breast demonstrate interval decreased size of minimally complicated cyst which today measures approximately 4 x 2 x 5 mm previously measured 7 x 4 x 10 mm. There is no internal vascular flow. Results are discussed with the patient at time of visit. US/US breast RT limited mamm only IMPRESSION: Interval decrease of minimally corticated cyst in the right breast at 10:00 7 cm from nipple. Benign. Recommend screening mammography in one year when the patient turns 40. ASSESSMENT: BI-RADS 2: Benign RECOMMENDATION: Routine annual mammography screening age 40. This patient's information was entered into a reminder system with a target due date for their next mammogram. Electronically signed by: Ami Monteiro DO 09/06/2024 12:23 PM EVE
== END 2024-08-29 11:07 | disposition home or self-care (01) ==
LOC: HO.MAMMO 11:06
PROVIDERS: Visit Provider Family Medicine
DX: N63.11 Unspecified lump in the right breast, upper outer quadrant (principal)
CPT/HCPCS: 76642

== ENCOUNTER → 2024-08-29 11:30 | Outpatient (BNV) | payer MEDICAID, SELFPAY | PROVIDERS: Visit Provider Internal Medicine | DX: N60.01 Solitary cyst of right breast (principal) | CPT/HCPCS: 76642 ==

== ENCOUNTER 2025-07-08 13:03 | Outpatient (REF) | payer MEDICAID, SELFPAY ==
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
--- NOTE | ~2025-07-08 | XR_ITS ---
EXAMINATION: XR HIP, LEFT CLINICAL INFORMATION: L hip pain/locking, radiating to low back COMPARISON: 12/15/2023 TECHNIQUE: Two views of the left hip. FINDINGS: No fracture, dislocation, or suspicious bone lesion. There is normal alignment. 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 There is mild posterior acetabular over coverage, a finding which can be associated with pincer-type GASTON. There is no soft tissue abnormality. XR/XR hip LT min 2V IMPRESSION: No acute bony findings of the left hip. Electronically signed by: Axel Cisneros MD 07/08/2025 01:47 PM EDT
--- NOTE | ~2025-07-08 | XR_ITS ---
EXAMINATION: XR LUMBAR SPINE 2-3 VIEWS HISTORY: L hip pain/locking, radiating to low back COMPARISON: There are no prior studies for comparison. FINDINGS: AP, lateral, and coned down views of the lumbar spine are submitted. Osseous mineralization is normal. Five nonrib-bearing lumbar vertebral bodies are identified, maintaining normal height and alignment without evidence of fracture or spondylolisthesis. There is minimal anterior spurring at L3 and L4. The intervertebral disc spaces are preserved. The posterior elements are intact. The visualized paraspinal soft tissues are unremarkable. XR/XR lumbar spine 2-3V IMPRESSION: Minimal degenerative changes. Electronically signed by: Frederick Jennings MD 07/08/2025 01:44 PM EDT
--- OUTSIDE RECORDS SUMMARY | 2025-07-08 11:30 | XMS_ITS | Encounter Summary ---
Author Organization [employer] Address [address] [place] [address] [address] [place] [address] Care Team Providers Care Canal [employer] Captain Name Role Phone Juana Pink DO Primary Care Provider + [phone] Reason for Visit * Reason Comments Hypertension Encounter Details Date Type Department Care Team ([facility] st Contact Info) Description 07/08/2025 11:30 AM EDT Office Visit [facility] [address] [place], [place] [phone] Juana Pink DO [address] [place], [place] [phone] Essential hypertension (Primary Dx); Fatty liver; Allergic rhinitis, unspecified seasonality, unspecified trigger; Meralgia paresthetica of right side; Peripheral polyneuropathy; Patient desires ; Daily headache; Sleep-disordered breathing; Healthcare maintenance; Dietary counseling; Exercise counseling; Acute pain of left hip Social History Tobacco Use Types Packs/Day Years Used Date Smoking Tobacco: Never Passive Smoke Exposure: Never Smokeless Tobacco: Never Tobacco Cessation:Counseling Given: Not Answered Alcohol Use Standard Drinks/Week Comments Not Currently 0 (1 standard drink = 0.6 oz pur e alcohol) Depression Answer Date Recorded Patient Health Questionnaire-9 Score 4 07/08/2025 Patient Health Questionnaire-9 Score 4 07/08/2025 Last PHQ-9: Questionnaire Data Not on file 0 07/08/2025 Housing Stability Answer Date Recorded What is your housing situation today? I have eleanor law 07/08/[address] you li ve. Do you have problems with any of the following? None of the above 07/08/2025 Food Insecurity Answer Date Recorded Within the past 12 months, y ou worried that your food would run out before you got money to buy more: Sometimes True 2024 Within the past 12 months,th e food you bought just didn't last and you didn't have enough money to get more: Sometimes True 07/08/2025 Transportation Answer Date Recorded In the past 12 months, has l ack of transportation kept you from medical appts, meetings, work or from getting things needed for daily living? No 12/06/2023 Utilities Answer Date Recorded In the past 12 months, has t he mascotsecret, gas, oil or water company threatened to shut off services in your home? Yes 07/08/2025 Depression Answer Date Recorded Patient Health Questionnaire-2 Score 2 07/08/2025 Internet Access Answer Date Recorded Internet Access Q1 Yes 07/08/2025 Internet Access Q2 Not on file 07/08/2025 Comments No Sex and Gender Information Value Date Recorded Sex Assigned at Female 08/22/2022 10:21 AM EDT Legal Sex Female 10:21 AM EDT Gender Identity Female 08/22/2022 10:21 AM EDT Sexual Orientation Straight 08/22/2022 10 :21 AM EDT documented as of this encounter Last Filed Vital Signs Vital Sign Reading Time Taken Comments Blood Pressure 140/100 07/08/2025 11:46 AM EDT Pulse 84 07/08/2025 11:46 AM EDT Temperature 36.2 C (97.1 F) 07/08/2025 11:46 AM EDT Respiratory Rate 20 07/08/2025 11:46 AM EDT Oxygen Saturation - - Inhaled Oxygen Concentration - - Weight 130 kg (285 lb 12.8 oz) 07/08/2025 11:46 AM EDT Height 167.6 cm (5' 6 ) 07/08/2025 11:46 AM EDT Body Mass Index 46.13 07/08/2025 11:46 AM EDT documented in this encounter Functional Status * Over the past 2 weeks, how often have you been bothered by any of the following problems? Question Answer Date of Assessment Author Patient Health Questionnaire-2 Score 2 07/08/2025 11:48 AM EDT Debra Everett MA * Little interest or pleasure in doing things Answer Date of Assessment Author Not at all 07/08/2025 11:48 AM EDT Debra Leija MA * Feeling down, depressed, or hopeless Answer Date of Assessment Author More than half the days 07/08/2025 11:48 AM EDT Debra Núñez MA * Trouble falling or staying asleep, or sleeping too much Answer Date of Assessment Author Not at all 07/08/2025 11:48 AM EDT Debra Leija MA * Feeling tired or having little energy Answer Date of Assessment Author Several days 07/08/2025 11:48 AM EDT Debra Leija MA * Poor appetite or overeating Answer Date of Assessment Author Not at all 07/08/2025 11:48 AM EDT Debra Leija MA * Feeling bad about yourself - or that you are a failure or have let yourself or your family down Answer Date of Assessment Author Several days 07/08/2025 11:48 AM EDT Debra Leija MA * Trouble concentrating on things, such as reading the newspaper or watching television Answer Date of Assessment Author Not at all 07/08/2025 11:48 AM EDT Debra Leija MA * Moving or speaking so slowly that other people could have noticed? Or the opposite - being so fidgety or restless that you have been moving around a lot more than usual. Answer Date of Assessment Author Not at all 07/08/2025 11:48 AM EDT Debra Leija MA * Thoughts that you would be better off or hurting yourself in some way Answer Date of Assessment Author Not at all 07/08/2025 11:48 AM EDT Debra Leija MA * Patient Health Questionnaire-9 Score Answer Date of Assessment Author 4 07/08/2025 11:48 AM EDT Debra Leija MA * How difficult have these problems made it for you to do your work, take care of things at home, or get along with other people? Answer Date of Assessment Author Somewhat difficult 07/08/2025 11:48 AM EDT Debra Kennedy MA * Over the last 2 weeks, how often have you been bothered by any of the following problems? Question Answer Date of Assessment Author Feeling nervous, anxious, or on edge 2 07/08/2025 11:48 AM EDT Debra Núñez MA Not being able to stop or control worrying 0 07/08/2025 11:48 AM EDT Debra Núñez MA Worrying too much about different things 0 07/08/2025 11:48 AM EDT Debra Núñez MA Trouble relaxing 2 07/08/2025 11:48 AM EDT Debra Núñez MA Being so restless that it is hard to sit still 2 07/08/2025 11:48 AM EDT Debra Núñez MA Becoming easily annoyed or irritable 0 07/08/2025 11:48 AM EDT Debra Nñúez MA Feeling afraid as if something awful might happen 2 07/08/2025 11:48 AM EDT Debra Avila MA MARGOTH-7 Total Score 8 07/08/2025 11:48 AM EDT Debra Núñez MA documented as of this encounter Plan of Treatment Scheduled Orders Name Type Priority Associated Diagnoses Orde r Schedule T4, Free Lab Routine Essential hypertension Fatty liver Allergic rhinitis, unspecified seasonality, unspecified trigger Meralgia paresthetica of right side Peripheral polyneuropathy Patient desires Daily headache Sleep-disordered breathing Healthcare maintenance Dietary counseling Exercise counseling Acute pain of left hip Expected: 07/08/2025 (Approximate), Expires: 07/08/2026 Vitamin D, 25-Hydroxy, Total, Immunoassay Lab Routine Essential hypertension Fatty liver Allergic rhinitis, unspecified seasonality, unspecified trigger Meralgia paresthetica of right side Peripheral polyneuropathy Patient desires Daily headache Sleep-disordered breathing Healthcare maintenance Dietary counseling Exercise counseling Acute pain of left hip Expected: 07/08/2025 (Approximate), Expires: 07/08/2026 Lipid Panel, Standard Lab Routine Essential hypertension Fatty liver Allergic rhinitis, unspecified seasonality, unspecified trigger Meralgia paresthetica of right side Peripheral polyneuropathy Patient desires Daily headache Sleep-disordered breathing Healthcare maintenance Dietary counseling Exercise counseling Acute pain of left hip Expected: 07/08/2025 (Approximate), Expires: 07/08/2026 TSH Lab Routine Essential hypertension Fatty liver Allergic rhinitis, unspecified seasonality, unspecified trigger Meralgia paresthetica of right side Peripheral polyneuropathy Patient desires Daily headache Sleep-disordered breathing Healthcare maintenance Dietary counseling Exercise counseling Acute pain of left hip Expected: 07/08/2025 (Approximate), Expires: 07/08/2026 Hepatic Function Panel Lab Routine Essential hypertension Fatty liver Allergic rhinitis, unspecified seasonality, unspecified trigger Meralgia paresthetica of right side Peripheral polyneuropathy Patient desires Daily headache Sleep-disordered breathing Healthcare maintenance Dietary counseling Exercise counseling Acute pain of left hip Expected: 07/08/2025 (Approximate), Expires: 07/08/2026 Basic Metabolic Panel Lab Routine Essential hypertension Fatty liver Allergic rhinitis, unspecified seasonality, unspecified trigger Meralgia paresthetica of right side Peripheral polyneuropathy Patient desires Daily headache Sleep-disordered breathing Healthcare maintenance Dietary counseling Exercise counseling Acute pain of left hip Expected: 07/08/2025 (Approximate), Expires: 07/08/2026 Albumin, Random Urine W/Creatinine Lab Routine Essential hypertension Fatty liver Allergic rhinitis, unspecified seasonality, unspecified trigger Meralgia paresthetica of right side Peripheral polyneuropathy Patient desires Daily headache Sleep-disordered breathing Healthcare maintenance Dietary counseling Exercise counseling Acute pain of left hip Expected: 07/08/2025 (Approximate), Expires: 07/08/2026 Chlamydia/N. Gonorrhoeae RNA, TMA, Urogenitial Microbiology Routine Essential hypertension Fatty liver Allergic rhinitis, unspecified seasonality, unspecified trigger Meralgia paresthetica of right side Peripheral polyneuropathy Patient desires Daily headache Sleep-disordered breathing Healthcare maintenance Dietary counseling Exercise counseling Acute pain of left hip Ordered: 07/08/2025 HIV-1/2 Antigen and Antibodies, Fourth Generation, with Reflexes Lab Routine Essential hypertension Fatty liver Allergic rhinitis, unspecified seasonality, unspecified trigger Meralgia paresthetica of right side Peripheral polyneuropathy Patient desires Daily headache Sleep-disordered breathing Healthcare maintenance Dietary counseling Exercise counseling Acute pain of left hip Expected: 07/08/2025 (Approximate), Expires: 07/08/2026 Hepatitis C Antibody with Reflex to HCV, RNA, Quantitative, Real-Time PCR Lab Routine Essential hypertension Fatty liver Allergic rhinitis, unspecified seasonality, unspecified trigger Meralgia paresthetica of right side Peripheral polyneuropathy Patient desires Daily headache Sleep-disordered breathing Healthcare maintenance Dietary counseling Exercise counseling Acute pain of left hip Expected: 07/08/2025, Expires: 07/08/2026 RPR (Monitor) with Reflex to Titer Lab Routine Essential hypertension Fatty liver Allergic rhinitis, unspecified seasonality, unspecified trigger Meralgia paresthetica of right side Peripheral polyneuropathy Patient desires Daily headache Sleep-disordered breathing Healthcare maintenance Dietary counseling Exercise counseling Acute pain of left hip Expected: 07/08/2025, Expires: 07/08/2026 Alpha-Fetoprotein, Tumor Marker Lab Routine Essential hypertension Fatty liver Allergic rhinitis, unspecified seasonality, unspecified trigger Meralgia paresthetica of right side Peripheral polyneuropathy Patient desires Daily headache Sleep-disordered breathing Healthcare maintenance Dietary counseling Exercise counseling Acute pain of left hip Expected: 07/08/2025 (Approximate), Expires: 07/08/2026 documented as of this encounter Procedures Procedure Name Priority Date/Time Associated Diagnosis Comments XR HIP 2 OR 3 VIEWS LEFT Routine 07/08/2025 1:38 PM EDT Acute pain of left hip XR LUMBAR SPINE 2-3 VIEWS Routine 07/08/2025 1:38 PM EDT Acute pain of left hip CBC Routine 07/08/2025 1:09 PM EDT Essential hypertension Fatty liver Allergic rhinitis, unspecified seasonality, unspecified trigger Meralgia paresthetica of right side Peripheral polyneuropathy Patient desires Daily headache Sleep-disordered breathing Healthcare maintenance Dietary counseling Exercise counseling Acute pain of left hip HEMOGLOBIN A1C Routine 07/08/2025 1:09 PM EDT Essential hypertension Fatty liver Allergic rhinitis, unspecified seasonality, unspecified trigger Meralgia paresthetica of right side Peripheral polyneuropathy Patient desires Daily headache Sleep-disordered breathing Healthcare maintenance Dietary counseling Exercise counseling Acute pain of left hip documented in this encounter Results * XR Lumbar Spine 2-3 Views (07/08/2025 1:38 PM EDT) Anatomical Region Laterality Modality Spine, L-spine Radiographic Temitope ging 07/08/2025 1:38 PM EDT Narrative 07/08/2025 1:48 PM EDT [address] [address] XRay Report Signed Patient: Miguel Angel Hall MR#: [id number] : 1985 Acct:[id number] Age/Sex: 40 / F ADM Date: 07/08/25 Loc: HO.HHCX Attending Dr: Juana Pink DO Ordering Physician: Juana Pink DO Date of Service: 07/08/25 Procedure(s): XR lumbar spine 2-3V Accession Number(s): [id number] cc: Juana Pink DO Reason for Exam: L hip pain/locking, radiating to low back EXAMINATION: XR LUMBAR SPINE 2-3 VIEWS HISTORY: L hip pain/locking, radiating to low back COMPARISON: There are no prior studies for comparison. FINDINGS: AP, lateral, and coned down views of the lumbar spine are submitted. Osseous mineralization is normal. Five nonrib-bearing lumbar vertebral bodies are identified, maintaining normal height and alignment without evidence of fracture or spondylolisthesis. There is minimal anterior spurring at L3 and L4. The intervertebral disc spaces are preserved. The posterior elements are intact. The visualized paraspinal soft tissues are unremarkable. XR/XR lumbar spine 2-3V IMPRESSION: Minimal degenerative changes. Electronically signed by: Frederick Jennings MD 07/08/2025 01:44 PM EDT Dictated By: Frederick Jennings MD Signed By: <Electronically signed by Frederick Jennings MD in OV> 07/08/25 1344 DD/ 1338 TD/TT: 07/08/25 1339 Executive Vice President Of Sales: Procedure Note Donotuseinterpreter, Image - 07/08/[address] [address] XRay Report Signed Patient: Miguel Angel Hall TMR#: [id number] : 1985Acct:[id number] Age/Sex: 40 / FADM Date: 07/08/25 Loc: HO.HHCX Attending Dr: uJana Pink DO Ordering Physician: Juana Pink DO Date of Service: 07/08/25 Procedure(s): XR lumbar spine 2-3V Accession Number(s): [id number] cc: Juana Pink DO Reason for Exam: L hip pain/locking, radiating to low back EXAMINATION: XR LUMBAR SPINE 2-3 VIEWS HISTORY: L hip pain/locking, radiating to low back COMPARISON: There are no prior studies for comparison. FINDINGS: AP, lateral, and coned down views of the lumbar spine are submitted. Osseous mineralization is normal. Five nonrib-bearing lumbar vertebral bodies are identified, maintaining normal height and alignment without evidence of fracture or spondylolisthesis. There is minimal anterior spurring at L3 and L4. The intervertebral disc spaces are preserved. The posterior elements are intact. The visualized paraspinal soft tissues are unremarkable. XR/XR lumbar spine 2-3V IMPRESSION: Minimal degenerative changes. Electronically signed by: Frederick Jennings MD 07/08/2025 01:44 PM EDT Dictated By: Frederick Jennings MD Signed By: <Electronically signed by Frederick Jennings MD in OV> 07/08/25 1344 DD/ 1338 TD/TT: 07/08/25 1339 Executive Vice President Of Sales: us Juana Pink DO IMG XR PROCEDURES Edited Res ult - Final * XR Hip 2 or 3 Views Left (07/08/2025 1:38 PM EDT) Anatomical Region Laterality Modality Lower Extremities, Hip Left Radiograp hic Imaging 07/08/2025 1:38 PM EDT Narrative 07/08/2025 1:50 PM EDT [facility] [address] [place] [address] XRay Report Signed Patient: Miguel Angel Hall MR#: [id number] : 1985 Acct:[id number] Age/Sex: 40 / F ADM Date: 07/08/25 Loc: HO.HHCX Attending Dr: Juana Pink DO Ordering Physician: Juana Pink DO Date of Service: 07/08/25 Procedure(s): XR hip LT min 2V Accession Number(s): [id number] cc: Juana Pink DO Reason for Exam: L hip pain/locking, radiating to low back EXAMINATION: XR HIP, LEFT CLINICAL INFORMATION: L hip pain/locking, radiating to low back COMPARISON: 12/15/2023 TECHNIQUE: Two views of the left hip. FINDINGS: No fracture, dislocation, or suspicious bone lesion. There is normal alignment. 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 There is mild posterior acetabular over coverage, a finding which can be associated with pincer-type GASTON. There is no soft tissue abnormality. XR/XR hip LT min 2V IMPRESSION: No acute bony findings of the left hip. Electronically signed by: Axel Cisneros MD 07/08/2025 01:47 PM EDT RP Dictated By: Axel Cisneros MD Signed By: <Electronically signed by Axel Cisneros MD in OV> 07/08/25 1347 DD/ 1338 TD/TT: 07/08/25 1339 Executive Vice President Of Sales: Procedure Note Donotgiovanniinterpreter, Image - 07/08/[address] [address] XRay Report Signed Patient: Miguel Angel Hall TMR#: [id number] : 1985Acct:[id number] Age/Sex: 40 / FADM Date: 07/08/25 Loc: HO.HHCX Attending Dr: Juana Pink DO Ordering Physician: Juana Pink DO Date of Service: 07/08/25 Procedure(s): XR hip LT min 2V Accession Number(s): [id number] cc: Juana Pink DO Reason for Exam: L hip pain/locking, radiating to low back EXAMINATION: XR HIP, LEFT CLINICAL INFORMATION: L hip pain/locking, radiating to low back COMPARISON: 12/15/2023 TECHNIQUE: Two views of the left hip. FINDINGS: No fracture, dislocation, or suspicious bone lesion. There is normal alignment. 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 There is mild posterior acetabular over coverage, a finding which can be associated with pincer-type GASTON. There is no soft tissue abnormality. XR/XR hip LT min 2V IMPRESSION: No acute bony findings of the left hip. Electronically signed by: Axel Cisneros MD 07/08/2025 01:47 PM EDT RP Dictated By: Axel Cisneros MD Signed By: <Electronically signed by Axel Cisneros MD in OV> 07/08/25 1347 DD/ 1338 TD/TT: 07/08/25 1339 Executive Vice President Of Sales: Juana Pink DO IMG XR PROCEDURES Edited Res ult - Final * (ABNORMAL) CBC (07/08/2025 1:09 PM EDT) White Blood Count 4.4(L) 4.8 - 10.8 X10*3/uL [facility] Red Blood Count 4.19(L) 4.20 - 5.50 X10*6/uL [facility] Hemoglobin 11.4(L) 12.0 - 16.0 g/dl [facility] Hematocrit 35.3(L) 37.0 - 47.0 % [facility] Mean Corpuscular Volume 84.2 80.0 - 98.0 fL [facility] Mean Corpuscular Hemoglobin 27.2 27.0 - 33.0 pg [facility] Mean Corpuscular HGB Conc 32.3 31.0 - 35.0 g/dl [facility] Red Cell Distribution Width 13.9 11.0 - 16.0 % [facility] Platelet Count 275 160 - 400 X10*3/uL [facility] Mean Platelet Volume 10.3 9.4 - 12.3 fL [facility] NRBC Pct Auto 0.0 0.0 - 0.2 /100WBC [facility] NRBC Abs Auto 0.000 0.0 - 0.012 X10*3/uL [facility] Blood Venous blood specimen / Unknown 07/08/2025 1:09 PM EDT 07/08/2025 4:04 PM EDT Juana Pink DO LAB BLOOD ORDERABLES Final R esult Performing Organization Address [facility] Co de Phone Number [facility] [address] [place] [phone] * Hemoglobin A1c (07/08/2025 1:09 PM EDT) Hemoglobin A1c 5.9 <6.0 % [facility] Comment:Hemoglobin A1C Refer ence Range Adults: 4.8 - 6.0 % Non diabetic: < 6.0 % Goal: < 7.0 %Additional Action Suggested: > 8.0 %Note: Hemoglobin A1c results are invalid for patients with abnormal amounts of HbF. Blood transfusions may impact the HbA1c concentration in the patient sample. Estimated Average Glucose 123 mg/dL [facility] Comment:eAG = Estimated ave rage glucose which is %A1C expressed asaverage glucose, using the formula of the [id number] Glucose study (ADAG), Diabetes Care, Vol.31,#8,May. 2007 Blood Venous blood specimen / Unknown 07/08/2025 1:09 PM EDT 07/08/2025 4:11 PM EDT Juana Pink DO LAB BLOOD ORDERABLES Final R esult Performing Organization Address [facility]/ZIP Co de Phone Number [facility] [address] [place] [phone] documented in this encounter Visit Diagnoses Diagnosis Essential hypertension- Primary Unspecified essential hypertension Fatty liver Other chronic nonalcoholic liver disease Allergic rhinitis, unspecified seasonality, unspecified trigger Meralgia paresthetica of right side Peripheral polyneuropathy Patient desires Daily headache Sleep-disordered breathing Other sleep disturbances Healthcare maintenance Dietary counseling Dietary surveillance and counseling Exercise counseling Acute pain of left hip documented in this encounter Additional Health Concerns Assessment Noted Time PHQ-9 Depression Total Score: 4 07/08/20 25 11:48 AM EDT documented as of this encounter Care Teams [employer] Relationship Specialty Start Date End Date Juana Pink DO [address] [place] [phone] PCP - General Family Medicine 10/23/18 documented as of this encounter
[2025-07-08 16:13] LABS: Hematocrit 35.3 % (37.0-47.0); Hemoglobin 11.4 g/dl (12.0-16.0); Mean Corpuscular HGB Conc 32.3 g/dl (31.0-35.0); Mean Corpuscular Hemoglobin 27.2 pg (27.0-33.0); Mean Corpuscular Volume 84.2 fL (80.0-98.0); NRBC Abs Auto 0.000 X10*3/uL (0.0-0.012); NRBC Pct Auto 0.0 /100WBC (0.0-0.2); Platelet Count 275 X10*3/uL (160-400); Red Blood Count 4.19 X10*6/uL (4.20-5.50); White Blood Count 4.4 X10*3/uL (4.8-10.8)
[2025-07-08 16:33] LABS: Hemoglobin A1C 123.4044 umol/L; Total Hemoglobin (HGBA1C) 2981.5590 umol/L
[2025-07-08 16:59] LABS: Alanine Aminotransferase 18 U/L (0-31); Albumin Level 4.4 g/dL (3.5-5.0); Alkaline Phosphatase 65 U/L (39-117); Anion Gap 11 (12-20); Aspartate Amino Transferase 26 U/L (5-31); Blood Urea Nitrogen 16 mg/dL (9-16); Calcium 9.3 mg/dL (8.4-10.2); Carbon Dioxide 27 mmol/L (22-29); Chloride 105 mmol/L (96-108); Cholesterol 126 mg/dL (<200); Estimated Glomerular Filt Rate > 60; HDL Cholesterol 44 mg/dL (>40); Potassium 3.8 mmol/L (3.3-5.1); Sodium 139 mmol/L (135-145); Total Protein 7.8 g/dL (6.5-8.0); Triglycerides 46 mg/dL (<150)
--- OUTSIDE RECORDS SUMMARY | 2025-07-08 16:59 | XMS_ITS | Encounter Summary ---
Author Organization [employer] Address [address] [place] [address] [address] [place] [address] Care Team Providers Care Material Requirements Planning Manager Name Role Phone Juana Pink DO Primary Care Provider + [phone] Reason for Visit * Reason Onset Date Comments Nurse Triage 07/08/2024 Encounter Details Date Type Department Care Team ([facility] st Contact Info) Description 07/08/2024 Telephone [facility] MEDICINE [address], [place] [phone] Juana Pink DO [address] [place], [place] [phone] Nurse Triage Social History Tobacco Use Types Packs/Day Years Used Date Smoking Tobacco: Never Passive Smoke Exposure: Never Smokeless Tobacco: Never Alcohol Use Standard Drinks/Week Comments Not Currently 0 (1 standard drink = 0.6 oz pur e alcohol) Depression Answer Date Recorded Patient Health Questionnaire-9 Score 7 01/26/2024 Patient Health Questionnaire-9 Score 7 01/26/2024 Last PHQ-9: Questionnaire Data Not on file 0 01/26/2024 Housing Stability Answer Date Recorded What is your housing situation today? I have eleanor law 12/06/[address] you li ve. Do you have problems with any of the following? None of the above 12/06/2023 Food Insecurity Answer Date Recorded Within the past 12 months, y ou worried that your food would run out before you got money to buy more: Never True 12/06/2023 Within the past 12 months,th e food you bought just didn't last and you didn't have enough money to get more: Never True Transportation Answer Date Recorded In the past 12 months, has l ack of transportation kept you from medical appts, meetings, work or from getting things needed for daily living? No 12/06/2023 Utilities Answer Date Recorded In the past 12 months, has t he electric, gas, oil or water company threatened to shut off services in your home? No 12/06/2023 Depression Answer Date Recorded Patient Health Questionnaire-2 Score 4 01/26/2024 Comments Unknown Sex and Gender Information Value Date Recorded Sex Assigned at Female 08/22/2022 10:21 AM EDT Legal Sex Female 10:21 AM EDT Gender Identity Female 08/22/2022 10:21 AM EDT Sexual Orientation Straight 08/22/2022 10 :21 AM EDT documented as of this encounter Miscellaneous Notes * Telephone Encounter - Kathy Peterson RN - 07/08/2024 4:27 PM EDT Called pt. She states that she felt a pop and she went to the bathroom and noticed blood in her panties. Pt. Has been having irregular menses x 1 year. Pt just finished her menses last week. The blood is not a lot and pt. Is wearing a panty liner. Pt. States only small amount of bright red drops when she wiped with toilet paper . Pt does have a Hx. Of a fibroid which has shrunk since last PICKER / PACKER visit. Pt. Took a urine test today that came back negative. Pt. States she did have a miscarriage x 2 years ago and lost a baby at 5 months gestation. Pt. Does see Dr. Oshea from [facility] but, she see's Dr Pink as PCP and Dr. Oshea she states Is not always available . Pt. Wants to check vaginal area and do a blood test. I advised pt. To go to ED but pt. Declines to go to ED. I advised pt. That she should call her regular PIPE SMOKING MACHINE OFFBEARER in the am to see if they can squeeze her in tomorrow, otherwise, pt. Wants to see cattle trader at [facility]. Pt. Will call PICKER / PACKER in am but she states That she knows she will not be available and is requesting appt. With [facility] PICKER / PACKER. Appt. Made with Helga for 1:15pm tomorrow 07/09/24. Protocol Used: Vaginal Bleeding - Abnormal (Adult) Protocol-Based Disposition: See in Office or Video Visit within 2 Weeks Positive Triage Questions: * Menstrual cycle < 21 days OR > 35 days, and occurs more than two cycles (2 months) this past year * Bleeding or spotting between regular periods occurs more than three cycles (3 months) this past year * All higher-acuity triage questions were negative * Telephone Encounter - Kay Corrigan - 07/08/2024 4:23 PM EDT Symptom: Vaginal Bleeding - Not Outcome: Schedule an appointment to be seen within 24 hours Reason: Caller denied all higher acuity questions documented in this encounter Plan of Treatment Not on file documented as of this encounter Visit Diagnoses Not on filedocumented in this encounter Additional Health Concerns Assessment Noted Time PHQ-9 Depression Total Score: 7 01/26/20 24 12:58 PM EDT documented as of this encounter Care Teams Material Requirements Planning Manager Relationship Specialty Start Date End Date Juana Pink DO [address] [place] [phone] PCP - General Family Medicine 10/23/18 documented as of this encounter
--- OUTSIDE RECORDS SUMMARY | 2025-07-08 16:59 | XMS_ITS | Clinical Summary ---
Author Organization [facility] ity Address [address] [place] [address] Care Team Providers Care Legal Counsel Name Role Phone Unavailable Primary Care Provider Unavailabl e Social History Tobacco Use Types Packs/Day Years Used Date Smoking Tobacco: Never Assessed Comments Unknown Sex and Gender Information Value Date Recorded Sex Assigned at Not on file Legal Sex Female 5:23 PM EST Gender Identity Not on file Sexual Orientation Not on file Plan of Treatment Health Maintenance Due Date Last Done Comments Breast Cancer Screening 1985 DTaP,Tdap,and Td Vaccines (1 - Tdap) 2004 Hepatitis B Vaccines (1 of 3 - 19+ 3-dose series) 2004 Cervical Cancer Screening: P ap Smear 2006 HIV Screening 09/24/2022 Hepatitis C Screening 09/24/2022 Social Influencers of Health Screening 09/24/2022 Depression Screening 10/23/2024 COVID-19 Vaccine (2023-2 5 season) 2025 Influenza Vaccine (#1) 2025 HIB Vaccines Aged Out No longer eligi ble based on patient's age to complete this topic HPV Vaccines Aged Out No longer eligi ble based on patient's age to complete this topic Hepatitis A Vaccines Aged Out No long er eligible based on patient's age to complete this topic IPV Vaccines Aged Out No longer eligi ble based on patient's age to complete this topic MMR Vaccines Aged Out No longer eligi ble based on patient's age to complete this topic Meningococcal ACWY Vaccine Aged Out N o longer eligible based on patient's age to complete this topic Meningococcal B Vaccine Aged Out No l onger eligible based on patient's age to complete this topic Pneumococcal Vaccine: Pediat rics (0 to 5 Years) and At-Risk Patients (6 to 49 Years) Aged Out No longer eligible b ased on patient's age to complete this topic RSV Immunization Patients Un tiffanie 20 months Aged Out No longer eligible b ased on patient's age to complete this topic Varicella Vaccines Aged Out No longer eligible based on patient's age to complete this topic
--- OUTSIDE RECORDS SUMMARY | 2025-07-08 16:59 | XMS_ITS | Encounter Summary ---
Author Organization [employer] Address [address] [place] [address] [address] [place] [address] Care Team Providers Care Career Technical Education Instructor Name Role Phone Juana Pink DO Primary Care Provider + [phone] Reason for Visit * Reason Onset Date Comments Nurse Triage 01/24/2024 Encounter Details Date Type Department Care Team ([facility] st Contact Info) Description 01/24/2024 Telephone [facility] MEDICINE [address] [place], [place] [phone] Juana Pink DO [address] [place], [place] [phone] Nurse Triage Social History Tobacco Use Types [...] AM EDT documented as of this encounter Functional Status * Over the past 2 weeks, how often have you been bothered by any of the following problems? Question Answer Date of Assessment Author Patient Health Questionnaire -2 Score 4 01/26/2024 12:58 PM EDT Roshan Juarez MA * If you checked off any problems on this questionnaire so far, Question Answer Date of Assessment Author How difficult have these problems made it for you to do your work, take care of things at home, or get along with other people? Somewhat difficult 01/26/2024 12:58 PM EDT Roshan Juarez MA * Over the last 2 weeks, how often have you been bothered by any of the following problems? Question Answer Date of Assessment Author Feeling nervous, anxious, or on edge 0 01/26/2024 1:00 PM EDT Roshan Juarez MA Not being able to stop or co ntrol worrying 1 01/26/2024 1:00 PM EDT Roshan Juarez MA Worrying too much about diff erent things 1 01/26/2024 1:00 PM EDT Roshan Juarez MA Trouble relaxing 0 01/26/2024 1:00 PM EDT Roshan Hoffman MA Being so restless that it is hard to sit still 0 01/26/2024 1:00 PM KORINAT Roshan Juarez MA Becoming easily annoyed or irritable 1 01/26/2024 1:00 PM EDT Roshan Juarez MA Feeling afraid as if somethi ng awful might happen 0 01/26/2024 1:00 PM KORINAT Rsohan Juarez MA MARGOTH-7 Total Score 3 01/26/2024 1:00 PM KORINAT Roshan Juarez MA * Over the past 2 weeks, how often have you been bothered by any of the following problems? Question Answer Date of Assessment Author Little interest or pleasure in doing things Several days 01/26/2024 12:58 PM EDT Paula Juarez MA Feeling down, depressed, or hopeless Nearly every day 01/26/2024 12:58 PM KORINAT Roshan Juarez MA Trouble falling or staying asleep, or sleeping too much Several days 01/26/2024 12:58 PM KORINAT Roshan Juarez MA Feeling tired or having little energy Several days 01/26/2024 12:58 PM KORINAT Roshan Juarez MA Poor appetite or overeating Not at all 01/26/2024 12:58 PM KORINAT Roshan Juarez MA Feeling bad about yourself - or that you are a failure or have let yourself or your family down Several days 01/26/2024 12:58 PM KORINAT Roshan Juarez MA Trouble concentrating on things, such as reading the newspaper or watching television Not at all 01/26/2024 12:58 PM KORINAT Roshan Juarez MA Moving or speaking so slowly that other people could have noticed? Or the opposite - being so fidgety or restless that you have been moving around a lot more than usual. Not at all 01/26/2024 12:58 PM KORINAT Roshan Juarez MA Thoughts that you would be better off or hurting yourself in some way Not at all 01/26/2024 12:58 PM KORINAT Roshan Juarez MA Patient Health Questionnaire-9 Score 7 01/26/2024 12:58 PM KORINAT Gilda Juarez MA documented as of this encounter Miscellaneous Notes * Telephone Encounter - Rosa Maria Narayanan RN - 01/24/2024 11:14 AM EDT Triage call Pt reports right upper thigh numbness, tingling, needles sensation and pain. Pt denies any rash or obvious skin change. Pt reports this started 2 months ago. Pt has had knee surgery in 2019 to repair torn ACL. Pt reports has been taking gabapentin as prescribed and diclofenac gel as prescribed without effect. Pt reports not hearing back about xray results. Pt is advised xray results were normal. Pt is to start PT 02/16/24. Pt is requesting to speak with PCP and is inquiring about MRI. Pt is given apt with PCP 01/26/24 @ 1200pm. Pt agrees with disposition . Unable to check insurance system is down at time of triage. Protocol Used: Leg Pain (Adult) Protocol-Based Disposition: See in Office or Video Visit within 3 Days Video visit not offered Positive Triage Question: * Moderate pain (e.g., interferes with normal activities, limping) and present > 3 days * All higher-acuity triage questions were negative Care Advice Discussed: * Reassurance and Education - Leg Pain * Pain Medicines * Pain Medicines - Extra Notes and Warnings * Reasons To Call Back - Moderate pain (e.g., limping) lasts more than 3 days - Mild pain lasts more than 7 days - Signs of infection occur (e.g., spreading redness, warmth, fever) - You become worse * Telephone Encounter - Kirk Butler - 01/24/2024 10:47 AM EDT Symptom: Leg Pain - Not From Injury Outcome: Schedule an urgent appointment (within 1 hour) or talk to a nurse or provider soon Reason: Severe pain now documented in this encounter Plan of Treatment Not on file documented as of this encounter Visit Diagnoses Not on filedocumented in this encounter Additional Health Concerns Assessment Noted Time PHQ-9 Depression Total Score: 0 11/18/19 23 1:58 PM EST documented as of this encounter Care Teams Career Technical Education Instructor Relationship Specialty Start Date End Date Juana Pink DO [address] [place] [address] PCP - General Family Medicine 10/23/18 documented as of this encounter
[2025-07-08 17:00] LABS: Free T4 (Free Thyroxine) 0.93 ng/dL (0.71-1.85); Thyroid Stimulating Hormone 1.49 uIU/mL (0.32-4.0)
--- OUTSIDE RECORDS SUMMARY | 2025-07-08 17:00 | XMS_ITS | Encounter Summary ---
Author Organization [employer] Address [address] [place] [address] [place] [address] Care Team Providers Care Airline Managerial Supervisor Name Role Phone Juana Pink DO Primary Care Provider + [phone] Reason for Visit * Reason Onset Date Comments Chart Prep 07/07/2025 Encounter Details Date Type Department Care Team ([facility] st Contact Info) Description 07/07/2025 Telephone [facility] MEDICINE [address] [place], [place] [phone] Juana Pink DO [address] [place], [place] [phone] Chart Prep Social History Tobacco Use Types Packs/Day Years [...] encounter Miscellaneous Notes * Telephone Encounter - Medina Silva MA - 07/07/2025 1:43 PM EDT Chart Prep Labs: not applicable Images: not applicable Referrals: Polysomnogram-Unable to schedule patient's insurance is inactive. Vaccines due: Covid, Flu, Hep B, and Hep A Screenings: mammogram and LMP Overdue care gaps: SBIRT, SDOH, PHQ-9, MARGOTH-7, Oral health screening, and Disability screen documented in this encounter Plan of Treatment Not on file documented as of this encounter Visit Diagnoses Not on filedocumented in this encounter Additional Health Concerns Assessment Noted Time PHQ-9 Depression Total Score: 7 01/26/20 24 12:58 PM EDT documented as of this encounter Care Teams Airline Managerial Supervisor Relationship Specialty Start Date End Date Juana Pink DO [address] [place] [address] PCP - General Family Medicine 10/23/18 documented as of this encounter
--- OUTSIDE RECORDS SUMMARY | 2025-07-08 17:00 | XMS_ITS | Clinical Summary ---
Author Organization [employer] Address [address] [place] [address] 7 [place] [address] Care Team Providers Care Dishwasher Busser Name Role Phone JoesphTyraJuana Primary Care Provider [phone] Allergies No known active allergies Medications Diclofenac Sodium 1 % gelIndications:Tr ochanteric bursitis of right hip Apply 2 g topically if needed in the morning, at noon, in the evening, and at bedtime (pain). 150 g 3 4 Active lidocaine (Lidoderm) 5 % patch Apply 2 patches topically if needed each day for mild pain. Remove & discard patch within 12 hours or as directed by MD. 60 patch 3 4 Active terbinafine (LamISIL AT) 1 % cream Apply topically if needed in the morning and at bedtime (rash). 42 g 1 4 Active hydrocortisone 2.5 % ointment Apply topically if needed in the morning and at bedtime for rash. 28 g 1 4 Active methocarbamol (Robaxin) 750 MG tablet Take 750 mg by mouth 4 times daily. 4 Active NIFEdipine XL (Procardia XL) 30 MG 24 hr tablet Take 1 tablet (30 mg) by mouth Once per day. Do not crush, chew, or split. 90 tablet 3 5 11/06/19 26 Active hydroCHLOROthiazi de (HYDRODiuril) 25 MG tabletIndications :Uncontrolled hypertension Take 1 tab daily by mouth 90 tablet 3 5 Active albuterol 108 (90 Base) MCG/ACT inhaler Inhale 2 puffs every 4 (four) hours if needed for wheezing or shortness of breath. 18 g 1 5 Active Blood Pressure Monitoring (Blood Pressure Cuff) misc 1 Units 2 times daily. 1 each 5 Active amitriptyline (Elavil) 10 MG tablet Take 1-2 tablets (10-20 mg) by mouth at bedtime. 60 tablet 3 5 Active cetirizine (ZyrTEC) 10 MG tablet Take 1 tablet (10 mg) by mouth Once per day. 90 tablet 3 5 12/03/19 26 Active triamcinolone (Nasacort) 55 MCG/ACT nasal inhaler Administer 2 sprays into each nostril Once per day. 49.5 g 3 5 12/03/19 26 Active Active Problems Problem Noted Date Diagnosed Date Dietary counseling 11/06/2024 Assessment & Plan (11/10/2024 6:01 PM EST): BMI 46.04 Eat 3 meals a day, especially breakfast Eat healthy and focus on healthyfood choices daily fruits, vegetables, grains, low fat milk, low carbohydrate and fat Maintain healthy weight as this will lower your risk for many health problems. Exercise counseling 11/06/2024 Assessment & Plan (11/10/2024 6:03 PM EST): BMI 46.04 No routine exercise sedentary lifestyle Exercise at least 30 mins daily and increase as tolerated Otitis media with effusion, bilateral 11/06/2024 Meralgia paresthetica of right side 12/06/2023 Assessment & Plan (12/12/2023 3:59 PM EST): Start gabapentin low dose Recommended accupuncture Refer to PT as above, as bursitis may be triggering neuralgia History of repair of anterio r cruciate ligament of right knee 12/01/2023 Essential hypertension 01/24/2023 Assessment & Plan (11/10/2024 6:27 PM EST): BP Readings from Last 5 Encounters: 11/06/24 (!) 160/100 07/09/24 (!) 160/100 04/29/24 (!) 144/98 01/26/24 (!) 154/102 12/15/23 152/90 Out of BP medications and not used BP meds over 3 weeks Patient education on uncontrolled hypertension and possible negative outcomes BP cuff prescribed Renewed BP medication Take your meds as prescribed. Do not change or discontinue current prescriptions without consulting health care provider Aerobic exercise daily at 30 mins daily to reduce BP and increase as tolerated. Eat heart healthy diet such as DASH. Low-sodium diet less than 2g/day to reduce BP and prevent ASCVD. Monitor and record your home BP 1-2 x day with goal of <130/90. Bring your log to the next visit Seek immediate medical attention for chest pain, palpitations, SOB, syncope, or sudden changes in mental status. Follow up in 2 weeks Chronic knee pain 11/05/2018 Allergic rhinitis 12/09/2016 Chronic pelvic pain in female 08/07/2015 Nystagmus 08/07/2015 BMI 40.0-44.9, adult 08/07/2015 Assessment & Plan (11/10/2024 6:25 PM EST): BMI 46.04 Dietary and exercise counseling Patient education on weight loss management Fatty liver 08/07/2015 Vitamin D deficiency 08/07/2015 Resolved Problems Problem Noted Date Diagnosed Date Resolved Date URI with cough and congestion 11/06/2024 02/24/2025 Assessment & Plan (11/10/2024 6:32 PM EST): Congestion of head and nose Lung sound clear POCT flu & Covid test negative Plan Mucinex DM and saline nasal spray prescribed Have warm shower Sleep with humidifier on Get adequate amount of sleep and rest Drink plenty of fluid Call the office if you feel worse or fever Trochanteric bursitis of right hip 12/06/2023 01/26/2024 Assessment & Plan (12/12/2023 3:58 PM EST): Take tylenol prn + Heat to affected area Refer to PT Encounters Date Type Department Care Team Description 07/08/2025 11:30 AM EDT Office Visit [facility] [address] [place] [phone] Juana Pink DO Essential hypertension (Primary Dx); Fatty liver; Allergic rhinitis, unspecified seasonality, unspecified trigger; Meralgia paresthetica of right side; Peripheral polyneuropathy; Patient desires ; Daily headache; Sleep-disordered breathing; Healthcare maintenance; Dietary counseling; Exercise counseling; Acute pain of left hip 07/08/2025 Travel 07/07/2025 Telephone [facility] [address] [place] [phone] Juana Pink DO Chart Prep 06/30/2025 Patient Outreach [facility] [address] [place] [phone] Juana Pink DO Pre-visit Planning ((Unable to reach for PVP screening, LVM) to be completed in office ) 06/24/[address] [phone] Juana Pink, Recall Appointment 06/24/2025 Travel from Last 3 Months Immunizations Immunization Administration Dates Next Due Hep B, adult 07/26/2023 Influenza injectable quadriv alent IIV4 with preservative 08/07/2015 Influenza injectable quadrivalent preservative f ree 07/26/2023 Influenza, seasonal, injectable, preservative fr ee 12/02/2024 Moderna Covid-19 Vaccine 12+ 12/27/2021,07/22/20 21 TD (adult), 2 Lf tetanus tox oid, preservative free, adsorbed 11/30/2021,02/07/2006 Tdap 10/05/2011 Social History Tobacco Use Types Packs/Day Years [...] the past 12 months, has t he [employer], gas, oil or water company threatened to [...] Orientation Straight 08/22/2022 10 :21 AM EDT Last Filed Vital Signs Vital Sign Reading Time Taken Comments Blood Pressure 140/100 07/08/2025 11:46 AM EDT Pulse 84 07/08/2025 11:46 AM EDT Temperature 36.2 C (97.1 F) 07/08/2025 11:46 AM EDT Respiratory Rate 20 07/08/2025 11:46 AM EDT Oxygen Saturation 98% 11/06/2024 11:24 AM EST Inhaled Oxygen Concentration - - Weight 130 kg (285 lb 12.8 oz) 07/08/2025 11:46 AM EDT Height 167.6 cm (5' 6 ) 07/08/2025 11:46 AM EDT Body Mass Index 46.13 07/08/2025 11:46 AM EDT Plan of Treatment Health Maintenance Due Date Last Done Comments Disability Screening 1985 HPV Vaccines (1 - 3-dose series) 2000 Hepatitis A Vaccines (1 of 2 - Risk 2-dose series) 2004 Hepatitis B Vaccines (2 of 3 - 19+ 3-dose series) 08/23/2023 07/26/2023 SDOH Screening 12/06/2024 12/06/2023 Mammogram 02/26/2025 08/29/2024, 050 12/2023, 08/25/2023, Additional history exists COVID-19 Vaccine ( - season) 2025 12/27/2021, 07/22/2021 Influenza Vaccine (#1) 2025 , 07/26/2023, 08/07/2015 Family Planning (PISQ) 07/09/2025 07/09/2024 Pap Smear 09/13/2025 09/13/2022, 05/06/2022 Alcohol/Substance Use Screening 07/08/2026 07/08/2025 Depression Screening 07/08/2026 07/08/2025, 07/08/20 25 Tobacco Screening 07/08/2026 07/08/2025 Cervical Cancer Screening 09/14/2027 HPV/Cotest 09/14/2027 09/14/2022, 04/22, 03/06/2018, Additional history exists Lipid Panel 03/12/2029 03/12/2024, 0 03/2023, 11/30/2021 DTaP/Tdap/Td Vaccines (3 - Td or Tdap) 11/30/2031 11/30/2021, 10/05/2011, 02/07/2006 Zoster Vaccines (1 of 2) 2035 RSV Patients and Patients Aged 60 years or older (1 - 1-dose 75+ series) 2060 Hepatitis C Screening Completed 03/12/2024 , 03/12/2024, 01/26/2023, Additional history exists HIV Screening Completed 03/13/2024, 02/21, 01/26/2023, Additional history exists HIB Vaccines Aged Out No longer eligi ble based on patient's age to complete this topic IPV Vaccines Aged Out No longer eligi ble based on patient's age to complete this topic Meningococcal B Vaccine Aged Out No l onger eligible based on patient's age to complete this topic Meningococcal Vaccine Aged Out No allen venkatesh eligible based on patient's age to complete this topic Pneumococcal Vaccine: Pediatrics (0 to 5 Years) and At-Risk Patients (6 to 49) Years Aged Out No longer eligible based on patient's age to complete this topic RSV under 20 months Aged Out No longe r eligible based on patient's age to complete this topic Rotavirus Vaccines Aged Out No longer eligible based on patient's age to complete this topic Procedures Procedure Name Priority Date/Time Associated Diagnosis Comments XR LUMBAR SPINE 2-3 VIEWS Routine 07/08/2025 1:38 PM EDT Acute pain of left hip XR HIP 2 OR 3 VIEWS LEFT [...] Exercise counseling Acute pain of left hip BI US BREAST LIMITED RIGHT Routine 08/29/2024 11:30 AM EST HIV 1/2 ANTIGEN/ANTIBODY, FOURTH GENERATION W/RFL Routine 03/13/2024 9:28 AM EDT HEPATITIS C AB W/REFL TO HCV RNA, QN, PCR Routine 03/12/2024 12:00 AM EDT Other polyneuropathy LIPID PANEL, STANDARD Routine 03/12/2024 12:00 AM EDT Essential hypertension HPV MRNA E6/E7 REFLEX TO HPV 16, 18/45 Routine 09/14/2022 8:40 AM EST PAP SMEAR Routine 09/13/2022 3:28 PM EST from Last 3 Months or Most Recently Relevant to Health Maintenance Results * XR Hip 2 or 3 Views Left (07/08/2025 1:38 PM EDT) Anatomical Region Laterality Modality Lower Extremities, Hip Left Radiograp hic Imaging 07/08/2025 1:38 PM EDT Narrative 07/08/2025 1:50 PM EDT [address] [address] XRay Report Signed Patient: Miguel Angel Hall MR#: [id number] : 1985 Acct:[id number] Age/Sex: 40 / F ADM Date: 07/08/25 Loc: HO.HHX Attending Dr: Juana Pink DO Ordering Physician: Juana Pink DO Date of Service: 07/08/25 Procedure(s): XR hip LT min 2V Accession Number(s): [id number] cc: Juana Pink DO Reason for Exam: [...] 07/08/25 1347 DD/ 1338 TD/TT: 07/08/25 1339 [employer] Therapist: Procedure Note Donotuseinterpreter, Image - 07/08/[address] [address] XRay Report Signed Patient: Miguel Angel HallR#: [id number] : 1985Acct:[id number] Age/Sex: 40 / FADM Date: 07/08/25 Loc: HO.HHCX Attending Dr: Juana Pink DO Ordering Physician: Juana Pink DO Date of Service: 07/08/25 Procedure(s): XR hip LT min 2V Accession Number(s): [id number] cc: Juana Pink DO Reason for Exam: [...] 07/08/25 1347 DD/ 1338 TD/TT: 07/08/25 1339 [employer] Therapist: Juana Pink DO IMG XR PROCEDURES Edited Res ult - Final * XR Lumbar Spine 2-3 Views (07/08/2025 1:38 PM EDT) Anatomical Region Laterality Modality Spine, L-spine Radiographic Temitope ging 07/08/2025 1:38 PM EDT Narrative 07/08/2025 1:48 PM EDT [address] [address] XRay Report Signed Patient: Miguel Angel Hall MR#: [id number] : 1985 Acct:[id number] Age/Sex: 40 / F ADM Date: 07/08/25 Loc: IDALIAX Attending Dr: Juana Pink DO Ordering Physician: Juana Pink DO Date of Service: 07/08/25 Procedure(s): XR lumbar spine 2-3V Accession Number(s): [id number] cc: Juana Pink DO Reason for Exam: [...] Frederick Jennings MD 07/08/2025 01:44 PM EDT RP Dictated By: Frederick Jennings MD Signed By: <Electronically signed by Frederick Jennings MD in OV> 07/08/25 1344 DD/ 1338 TD/TT: 07/08/25 1339 [employer] Therapist: Procedure Note Donotuseinterpreter, Image - 07/08/[address] [address] XRay Report Signed Patient: Miguel Angel Hall TMR#: [id number] : 1985Acct:[id number] Age/Sex: 40 / FADM Date: 07/08/25 Loc: ASHAKNX Attending Dr: Juana Pink DO Ordering Physician: Juana Pink DO Date of Service: 07/08/25 Procedure(s): XR lumbar spine 2-3V Accession Number(s): [id number] cc: Juana Pink DO Reason for Exam: [...] Frederick Jennings MD 07/08/2025 01:44 PM EDT RP Dictated By: Frederick Jennings MD Signed By: <Electronically signed by Frederick Jennings MD in OV> 07/08/25 1344 DD/ 1338 TD/TT: 07/08/25 1339 [employer] Therapist: Juana Pink DO IMG XR PROCEDURES Edited Res ult - Final * (ABNORMAL) CBC (07/08/2025 1:09 PM EDT) White Blood Count 4.4(L) 4.8 - 10.8 X10*3/uL [facility] Red Blood Count 4.19(L) 4.20 - 5.50 X10*6/uL [facility] Hemoglobin 11.4(L) 12.0 - 16.0 g/dl [facility] Hematocrit 35.3(L) 37.0 - 47.0 % [facility] Mean Corpuscular Volume 84.2 80.0 - 98.0 fL [facility] Mean Corpuscular Hemoglobin 27.2 27.0 - 33.0 pg [facility] Mean Corpuscular HGB Conc 32.3 31.0 - 35.0 g/dl [facility] Red Cell Distribution Width 13.9 11.0 - 16.0 % [facility] Platelet Count 275 160 - 400 X10*3/uL [facility] Mean Platelet Volume 10.3 9.4 - 12.3 fL [facility] NRBC Pct Auto 0.0 0.0 - 0.2 /100WBC [facility] NRBC Abs Auto 0.000 0.0 - 0.012 X10*3/uL [facility] Blood Venous blood specimen / Unknown 07/08/2025 1:09 PM EDT 07/08/2025 4:04 PM EDT Juana Joesph DO LAB BLOOD ORDERABLES Final R esult Performing Organization Address City/[facility]/ZIP Co de Phone Number [facility] [address] [place] [phone] * Hemoglobin A1c (07/08/2025 1:09 PM EDT) Hemoglobin A1c 5.9 <6.0 % [facility] Comment:Hemoglobin A1C Refer ence Range Adults: 4.8 - 6.0 % Non diabetic: < 6.0 % Goal: < 7.0 %Additional Action Suggested: > 8.0 %Note: Hemoglobin A1c results are invalid for patients with abnormal amounts of HbF. Blood transfusions may impact the HbA1c concentration in the patient sample. Estimated Average Glucose 123 mg/dL [facility] Comment:eAG = Estimated ave rage glucose which is %A1C expressed asaverage glucose, using the formula of the U5Q-QswxqbmMxgdrpn Glucose study (ADAG), Diabetes Care, Vol.31,#8,May. 2007 Blood Venous blood specimen / Unknown 07/08/2025 1:09 PM EDT 07/08/2025 4:11 PM EDT Juana Joesph DO LAB BLOOD ORDERABLES Final R esult Performing Organization Address [facility]/ZIP Co de Phone Number [facility] [address] [place] [phone] * BI US Breast Limited Right (08/29/2024 11:30 AM EST) Anatomical Region Laterality Modality Breast Right Ultrasound 08/29/2024 11:3 0 AM EST Narrative 09/06/2024 12:26 PM EST [facility] [address] [place], [place] [address] Ultrasound Report Signed Patient: Miguel Angel Hall MR#: [id number] : 1985 Acct:[id number] Age/Sex: 39 / F ADM Date: 08/29/24 Loc: HO.MAMMO Attending Dr: Juana Pink DO Ordering Physician: Juana Pink DO Date of Service: 08/29/24 Procedure(s): US breast RT limited mamm only Accession Number(s): [id number] cc: Juana Pink DO EXAMINATION: US DIAGNOSTIC ULTRASOUND BREAST, RIGHT CLINICAL INFORMATION: Follow-up for probable complicated cyst in the right breast at 10:00 on ultrasound.. COMPARISON: Comparison is made with relevant prior imaging. TECHNIQUE: Ultrasound of the breast is performed with real-time gama scale imaging and color Doppler. FINDINGS: Targeted color Doppler ultrasound scanning at 10:00 7 cm from the nipple in the right breast demonstrate interval decreased size of minimally complicated cyst which today measures approximately 4 x 2 x 5 mm previously measured 7 x 4 x 10 mm. There is no internal vascular flow. Results are discussed with the patient at time of visit. US/US breast RT limited mamm only IMPRESSION: Interval decrease of minimally corticated cyst in the right breast at 10:00 7 cm from nipple. Benign. Recommend screening mammography in one year when the patient turns 40. ASSESSMENT: BI-RADS 2: Benign RECOMMENDATION: Routine annual mammography screening age 40. This patient's information was entered into a reminder system with a target due date for their next mammogram. Electronically signed by: Ami Monteiro DO 09/06/2024 12:23 PM EST Dictated By: Ami Monteiro DO Signed By: <Electronically signed by Ami Monteiro DO in OV> 09/06/24 1223 DD/ 1130 TD/TT: 08/29/24 1144 [employer] Therapist: Procedure Note Donotuseinterpreter, Image - 09/06/2024 [facility] [address] [place] [address] Ultrasound Report Signed Patient: Miguel Angel Hall TMR#: [id number] : 1985Acct:[id number] Age/Sex: 39 / FADM Date: 08/29/24 Loc: HO.MAMMO Attending Dr: Juana Pink DO Ordering Physician: Juana Pink DO Date of Service: 08/29/24 Procedure(s): US breast RT limited mamm only Accession Number(s): [id number] cc: Juana Pink DO EXAMINATION: US DIAGNOSTIC ULTRASOUND BREAST, RIGHT CLINICAL INFORMATION: Follow-up for probable complicated cyst in the right breast at 10:00 on ultrasound.. COMPARISON: Comparison is made with relevant prior imaging. TECHNIQUE: Ultrasound of the breast is performed with real-time gama scale imaging and color Doppler. FINDINGS: Targeted color Doppler ultrasound scanning at 10:00 7 cm from the nipple in the right breast demonstrate interval decreased size of minimally complicated cyst which today measures approximately 4 x 2 x 5 mm previously measured 7 x 4 x 10 mm. There is no internal vascular flow. Results are discussed with the patient at time of visit. US/US breast RT limited mamm only IMPRESSION: Interval decrease of minimally corticated cyst in the right breast at 10:00 7 cm from nipple. Benign. Recommend screening mammography in one year when the patient turns 40. ASSESSMENT: BI-RADS 2: Benign RECOMMENDATION: Routine annual mammography screening age 40. This patient's information was entered into a reminder system with a target due date for their next mammogram. Electronically signed by: Ami Monteiro DO 09/06/2024 12:[address] [facility] Dictated By: Ami Monteiro DO Signed By: <Electronically signed by Ami Monteiro DO in OV> 09/06/24 1223 DD/ 1130 TD/TT: 08/29/24 1144 [employer] Therapist: us Juana Pink DO IMG US PROCEDURES Final Resu lt * HIV-1/2 Antigen and Antibodies, Fourth Generation, with Reflexes (03/13/2024 9:28 AM EDT) [facility] HIV AB/AG Nonreactive Nonreactive [facility] Comment:HIV-1 p24 Ag and/or HIV-1/HIV-2 Ab not detected.A test result that is nonreactive does not exclude thepossibility of exposure to or infection with HIV-1 and/orHIV-2. Nonreactive results in this assay for individualswith prior exposure to HIV-1 and/or HIV-2 may be due toantigen and antibody levels that are below the limit ofdetection of this assay.The [employer] In Person HIV Ag/Ab Combo assay result andsupplemental assay results should be interpreted inconjunction with the patient's clinical presentation,history and other laboratory results. If the results areinconsistent with clinical evidence, additional testing issuggested to confirm the result. 03/13/2024 9:28 AM EDT 03/13/2024 9:28 AM EDT us Generic External Data Provider LAB BLOOD ORDERAB LES Final Result Performing Organization Address [facility]/ZIP Co de Phone Number [facility] [address] [place] [phone] * Hepatitis C Antibody with Reflex to HCV, RNA, Quantitative, Real-Time PCR (03/12/2024 12:00 AM EDT) [facility] Hepatitis C Antibody Nonreactive Nonreactive [facility] Comment:Antibodies to HCV no t detected; does not exclude early acuteHCV infection. Blood Venous blood specimen / Unknown 03/12/2024 03/12/2024 us Juana Pink DO LAB BLOOD ORDERABLES Final R esult Performing Organization Address City/[facility]/ZIP Co de Phone Number [facility] [address] [place] [phone] * Lipid Panel, Standard (03/12/2024 12:00 AM EDT) Triglycerides 38 <150 mg/dL [facility] Comment:Desirable Triglyceri de: less than 150 mg/dLBorderline High Triglyceride 150-199 mg/dLHigh Triglyceride: 200-499 mg/dLVery High Triglyceride: greater than or equal to 5OO mg/dL Cholesterol 120 <200 mg/dL [facility] Comment:Desirable Cholestero l: less than 200 mg/dLBorderline High Cholesterol: 200-239 mg/dLHigh Cholesterol: greater than 239 mg/dL LDL Cholesterol Calculated 65 <100 mg/dL [facility] Comment:Desirable LDL: less than 100 mg/dLNear Optimal/Above Optimal LDL: 110- 129 mg/dLBorderline High LDL: 130-159 mg/dLHigh LDL: 160-189 mg/dLVery High LDL: greater than or equal to 190 mg/dL HDL Cholesterol 48 >40 mg/dL [facility] Comment:Desirable HDL: great er than 40 mg/dL Note: This HDL assay may give artificially low results in patients with liver disease. Blood Venous blood specimen / Unknown 03/12/2024 03/12/2024 us Juana Pink DO LAB BLOOD ORDERABLES Final R esult [facility] [address] [place] [phone] * HPV mRNA E6/E7 w/Reflex to HPV Genotypes 16, 18/45 (09/14/2022 8:40 AM EST) HPV nRNA E6/E7 Not Detected Not Detected [facility] Comment:Methodology: Transcr iption-Mediated AmplificationThis assay detects E6/E7 viral messenger RNA (mRNA) from 14high-risk HPV types (16,18,31,33,35,39,45,51,52,56,58,59,66,68).Cervical sources are required for HPV testing.If a vaginal source from a patient who has had atotal hysterectomy with removal of cervix wassubmitted, please contact the testing laboratoryfor alternative testing options.For additional information, please refer tohttp://education.[employer]/faq/BQL078s1(This link if provided for information/educational purposes only.)THIS TEST WAS PERFORMED AT:[employer] [address],[place] [phone] KEMP MD HPV mRNA E6/E7 TNP [facility] HPV 16 RNA TNP [facility] HPV 18/45 RNA [facility] 09/14/2022 8:40 AM EST 09/14/2022 8:40 AM EST [facility] External Provider LAB CYT OLOGY ORDERABLES Final Result Performing Organization Address City/State/[facility] Co de Phone Number [facility] [address] [place] [phone] * Pap Smear (09/13/2022 3:28 PM EST) 09/13/2022 3:28 PM EST 09/14/2022 8:40 AM EST Narrative [facility] - 10/10/2022 3:53 PM EST ----- ------- Name: Miguel Angel Hall Age/Sex: 37/F : 1985 Unit#: [id number] Attend Dr: Valerie Santana CNM Re09/13/22 Status: DEP REF Location: HOGraceLNP Disch: ----- ------- SPEC : [id number] RECD: 09/14/22 STATUS: ARIA LYN NUM: [id number] MICHELLE: 09/13/22 [facility] DR: EstherValerie [facility] ENTERED: 09/14/22 SP TYPE: Pap Smr OTHR DR: ORDERED: Pap Smear Interpretation Satisfactory for evaluation. Negative for intraepithelial lesion or malignancy. Coccobacilli consistent with shift in vaginal joshua. HPV mRNA E6/E7: NOT DETECTED This assay detects E6/E7 viral messenger RNA (mRNA) from 14 high-risk HPV types (16, 18, 31, 33, 35, 39, 45, 51, 52, 56, 58, 59, 66, 68) HPV testing performed by [facility], [place], [place]. See reference laboratory portion of the EMR for entire report. Clinical Information LMP: 09/06/22 Previous PAP test: 03/07/18, WNL Material Received ThinPrep-Cervical ----- ------- Signed (signature on file) Wanda Nichols Al[place] 10/10/22 1553 ----- ------- END OF REPORT [facility] External Provider LAB CYT GAY ORDERABLES Final Result [facility] [address] [place] [phone] from Last 3 Months or Most Recently Relevant to Health Maintenance Insurance [facility] C3 Care Teams Dishwasher Busser Relationship Specialty Start Date End Date Juana Pink DO [address] [place] [phone] PCP - General Family Medicine 10/23/18
--- OUTSIDE RECORDS SUMMARY | 2025-07-08 17:00 | XMS_ITS | Encounter Summary ---
Author Organization [employer] Address [address] [facility] 7 [place] [address] Care Team Providers Care Stud Setter Name Role Phone LunaJuana del toro Primary Care Provider + [phone] Encounter Details Date Type Department Care Team (Latest Contact Info) Description 07/08/2025 Travel Social History Tobacco Use Types Packs/Day Years [...] or on edge 2 07/08/2025 11:48 AM KORINAT Debra Núñez MA Not being able to stop or control worrying 0 07/08/2025 11:48 AM KORINAT Debra Núñez MA Worrying too much about different things 0 07/08/2025 11:48 AM Debra Wang MA Trouble relaxing 2 07/08/2025 11:48 AM KORINAT Debra Núñez MA Being so restless that it is hard to sit still 2 07/08/2025 11:48 AM KORINAT Debra Núñez MA Becoming easily annoyed or irritable 0 07/08/2025 11:48 AM KORINAT Debra Núñez MA Feeling afraid as if something awful might happen 2 07/08/2025 11:48 AM EDT Debra Avila MA MARGOTH-7 Total Score 8 07/08/2025 11:48 AM Debra Wang MA documented as of this encounter Plan of Treatment Not on file documented as of this encounter Visit Diagnoses Not on filedocumented in this encounter Additional Health Concerns Assessment Noted Time PHQ-9 Depression Total Score: 4 07/08/20 25 11:48 AM EDT documented as of this encounter Care Teams Stud Setter Relationship Specialty Start Date End Date Juana Pink DO [address] [place] [address] PCP - General Family Medicine 10/23/18 documented as of this encounter
[2025-07-10 06:02] LABS: HIV Num 1 0.06 S/CO (0.00-0.99); ~HepC Num1 0.15 S/CO (0.00-0.79); ~Hepatitis C Antibody Nonreactive (Nonreactive)
== END 2025-07-08 13:04 | disposition home or self-care (01) ==
LOC: HO.HHCX 13:03
PROVIDERS: PCP Family Medicine; Visit Provider Family Medicine
DX: Z00.00 Encounter for general adult medical examination without abnormal findings (principal); I10 Essential (primary) hypertension; K76.0 Fatty (change of) liver, not elsewhere classified; J30.9 Allergic rhinitis, unspecified; G57.11 Meralgia paresthetica, right lower limb; G62.9 Polyneuropathy, unspecified; R51.9 Headache, unspecified; G47.30 Sleep apnea, unspecified; M25.552 Pain in left hip; Z71.3 Dietary counseling and surveillance; Z71.82 Exercise counseling; Z13.29 Encounter for screening for other suspected endocrine disorder; Z13.1 Encounter for screening for diabetes mellitus; Z13.6 Encounter for screening for cardiovascular disorders
CPT/HCPCS: 36415; 72100; 73502; 80048; 80061; 80076; 82105; 82306; 83036; 84439; 84443; 85027; 86592; 86803; 87389

== ENCOUNTER → 2025-07-08 13:17 | Outpatient (BNV) | payer MEDICAID, SELFPAY | PROVIDERS: PCP Family Medicine; Visit Provider Radiology Diagnostic Radiology | DX: M47.816 Spondylosis without myelopathy or radiculopathy, lumbar region (principal); M54.42 Lumbago with sciatica, left side | CPT/HCPCS: 72100; 73502 ==

== ENCOUNTER 2025-07-10 10:21 | Outpatient (REF) | payer MEDICAID, SELFPAY ==
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
--- OUTSIDE RECORDS SUMMARY | 2025-07-08 11:30 | XMS_ITS | Encounter Summary ---
Author Organization [employer] Address [address] [place] [address] [address] [place] [address] Care Team Providers Care Chlorine Operator Name Role Phone Juana Pink DO Primary Care Provider + [phone] Reason for Visit * Reason Comments Hypertension Encounter Details Date Type Department Care Team ([facility] st Contact Info) Description 07/08/2025 11:30 AM EDT Office Visit [facility] MEDICINE [address], [place] [phone] Juana Pink DO [address], [place] [phone] Essential hypertension (Primary Dx); Fatty liver; Allergic [...] the past 12 months, has t he [employer], gas, oil or water company threatened to [...] at all 07/08/2025 11:48 AM EDT Debra Leiaj MA * Thoughts that you would be [...] irritable 0 07/08/2025 11:48 AM EDT Debra Núñez MA Feeling afraid as if something awful might happen 2 07/08/2025 11:48 AM EDT Debra Avila MA MARGOTH-7 Total Score 8 07/08/2025 11:48 AM EDT Debra Núñez MA documented as of this encounter Plan of Treatment Scheduled Orders Name Type Priority Associated Diagnoses Orde r Schedule Albumin, Random Urine W/Creatinine Lab Routine Essential [...] Acute pain of left hip Ordered: 07/08/2025 documented as of this encounter Procedures Procedure Name Priority Date/Time Associated Diagnosis Comments XR HIP 2 OR 3 VIEWS LEFT Routine 07/08/2025 1:38 PM EDT Acute pain of left hip XR LUMBAR SPINE 2-3 VIEWS Routine 07/08/2025 1:38 PM EDT Acute pain of left hip VITAMIN D,25-OH,TOTAL,IA Routine 07/08/2025 1:09 PM EDT Essential hypertension Fatty liver Allergic rhinitis, unspecified seasonality, unspecified trigger Meralgia paresthetica of right side Peripheral polyneuropathy Patient desires Daily headache Sleep-disordered breathing Healthcare maintenance Dietary counseling Exercise counseling Acute pain of left hip HEPATITIS C AB W/REFL TO HCV RNA, QN, PCR Routine 07/08/2025 1:09 PM EDT Essential hypertension Fatty liver Allergic rhinitis, unspecified seasonality, unspecified trigger Meralgia paresthetica of right side Peripheral polyneuropathy Patient desires Daily headache Sleep-disordered breathing Healthcare maintenance Dietary counseling Exercise counseling Acute pain of left hip ALPHA FETOPROTEIN, TUMOR MARKER Routine 07/08/2025 1:09 PM EDT Essential hypertension Fatty liver Allergic rhinitis, unspecified seasonality, unspecified trigger Meralgia paresthetica of right side Peripheral polyneuropathy Patient desires Daily headache Sleep-disordered breathing Healthcare maintenance Dietary counseling Exercise counseling Acute pain of left hip RPR (MONITOR) W/REFL TITER Routine 07/08/2025 1:09 PM EDT Essential hypertension Fatty liver Allergic rhinitis, unspecified seasonality, unspecified trigger Meralgia paresthetica of right side Peripheral polyneuropathy Patient desires Daily headache Sleep-disordered breathing Healthcare maintenance Dietary counseling Exercise counseling Acute pain of left hip HIV 1/2 ANTIGEN/ANTIBODY, FOURTH GENERATION W/RFL Routine 07/08/2025 1:09 PM EDT Essential hypertension Fatty liver Allergic rhinitis, unspecified seasonality, unspecified trigger Meralgia paresthetica of right side Peripheral polyneuropathy Patient desires Daily headache Sleep-disordered breathing Healthcare maintenance Dietary counseling Exercise counseling Acute pain of left hip CBC Routine 07/08/2025 1:09 PM EDT Essential hypertension Fatty liver Allergic rhinitis, unspecified seasonality, unspecified trigger Meralgia paresthetica of right side Peripheral polyneuropathy Patient desires Daily headache Sleep-disordered breathing Healthcare maintenance Dietary counseling Exercise counseling Acute pain of left hip TSH Routine 07/08/2025 1:09 PM EDT Essential hypertension Fatty liver Allergic rhinitis, unspecified seasonality, unspecified trigger Meralgia paresthetica of right side Peripheral polyneuropathy Patient desires Daily headache Sleep-disordered breathing Healthcare maintenance Dietary counseling Exercise counseling Acute pain of left hip T4, FREE Routine 07/08/2025 1:09 PM EDT Essential hypertension [...] Exercise counseling Acute pain of left hip HEPATIC FUNCTION PANEL Routine 07/08/2025 1:09 PM EDT Essential hypertension Fatty liver Allergic rhinitis, unspecified seasonality, unspecified trigger Meralgia paresthetica of right side Peripheral polyneuropathy Patient desires Daily headache Sleep-disordered breathing Healthcare maintenance Dietary counseling Exercise counseling Acute pain of left hip LIPID PANEL, STANDARD Routine 07/08/2025 1:09 PM EDT Essential hypertension Fatty liver Allergic rhinitis, unspecified seasonality, unspecified trigger Meralgia paresthetica of right side Peripheral polyneuropathy Patient desires Daily headache Sleep-disordered breathing Healthcare maintenance Dietary counseling Exercise counseling Acute pain of left hip BASIC METABOLIC PANEL Routine 07/08/2025 1:09 PM EDT Essential hypertension [...] PM EDT Narrative 07/08/2025 1:48 PM EDT [address] [address] XRay Report Signed Patient: Miguel Angel Hall MR#: [id number] : 1985 Acct:[id number] Age/Sex: 40 / F ADM Date: 07/08/25 Loc: HO.HHCX Attending Dr: Juana Pink DO Ordering Physician: Juana Pink DO Date of Service: 07/08/25 Procedure(s): XR lumbar spine 2-3V Accession Number(s): [id number] cc: Juana Pink DO Reason for Exam: [...] 07/08/25 1344 DD/ 1338 TD/TT: 07/08/25 1339 Newspaper Clipper: Procedure Note Donotuseinterpreter, Image - 07/08/2025 [facility] [address] [place] [address] XRay Report Signed Patient: Miguel Angel Hall TMR#: [id number] : 1985Acct:[id number] Age/Sex: 40 / FADM Date: 07/08/25 Loc: HO.HHCX Attending Dr: Juana Pink DO Ordering Physician: Juana Pink DO Date of Service: 07/08/25 Procedure(s): XR lumbar spine 2-3V Accession Number(s): [id number] cc: Juana Pink DO Reason for Exam: [...] 07/08/2025 01:44 PM EDT Dictated By: Frederick eJnnings MD Signed By: <Electronically signed by Frederick Jennings MD in OV> 07/08/25 1344 DD/ 1338 TD/TT: 07/08/25 1339 Newspaper Clipper: us Juana Pink DO IMG XR PROCEDURES Edited Res ult - Final * XR Hip 2 or 3 Views Left (07/08/2025 1:38 PM EDT) Anatomical Region Laterality Modality Lower Extremities, Hip Left Radiograp hic Imaging 07/08/2025 1:38 PM EDT Narrative 07/08/2025 1:50 PM EDT [facility] [address] [place] [address] XRay Report Signed Patient: Miguel Angel aHll MR#: [id number] : 1985 Acct:[id number] Age/Sex: 40 / F ADM Date: 07/08/25 Loc: HO.HHCX Attending Dr: Juana Pink DO Ordering Physician: Juana iPnk DO Date of Service: 07/08/25 Procedure(s): XR hip LT min 2V Accession Number(s): [id number] cc: Juana Pink DO Reason for Exam: [...] Axel Cisneros MD 07/08/2025 01:47 PM EDT Dictated By: Axel Cisneros MD Signed By: <Electronically signed by Axel Cisneros MD in OV> 07/08/25 1347 DD/ 1338 TD/TT: 07/08/25 1339 Newspaper Clipper: Procedure Note Donotuseinterpreter, Image - 07/08/2025 [facility] [address] [place] [address] XRay Report Signed Patient: Miguel Angel Hall TMR#: [id number] : 1985Acct:[id number] Age/Sex: 40 / FADM Date: 07/08/25 Loc: HO.HHCX Attending Dr: Juana Pink DO Ordering Physician: Juana Pink DO Date of Service: 07/08/25 Procedure(s): XR hip LT min 2V Accession Number(s): [id number] cc: Juana Pink DO Reason for Exam: [...] 07/08/25 1347 DD/ 1338 TD/TT: 07/08/25 1339 Newspaper Clipper: Juana Pink DO IMG XR PROCEDURES Edited Res ult - Final * Alpha-Fetoprotein, Tumor Marker (07/08/2025 1:09 PM EDT) Alpha Fetoprotein 5.8 ng/mL [facility] Comment:Reference Range: <6. 1The use of AFP as a tumor marker in females is not recommended.This test was performed using the Fang Coulterchemiluminescent method. Values obtained fromdifferent assay methods cannot be usedinterchangeably. AFP levels, regardless ofvalue, should not be interpreted as absoluteevidence of the presence or absence of disease.THIS TEST WAS PERFORMED AT:[id number] [place] [phone] KEMP MD Blood Venous blood specimen / Unknown 07/08/2025 1:09 PM EDT 07/08/2025 4:04 PM EDT us Juana Pink DO LAB BLOOD ORDERABLES Final R esult Performing Organization Address [facility] Co de Phone Number [facility] [address] [place] [phone] * RPR (Monitor) with Reflex to??Titer (07/08/2025 1:09 PM EDT) RPR (Monitor) w/Refl Titer NON-REACTI VE NON-REACT RAO [facility] Comment:THIS TEST WAS PERFOR MED AT:[id number] [place] [phone] KEMP MD Rapid Plasma Reagin Ab Titer TNP [facility] Blood Venous blood specimen / Unknown 07/08/2025 1:09 PM EDT 07/08/2025 4:04 PM EDT Juana Pavonsd [employer] LAB BLOOD ORDERABLES Final R esult Performing Organization Address [facility] Co de Phone Number [facility] [address] [place] [phone] * Hepatitis C Antibody with Reflex to HCV, RNA, Quantitative, Real-Time PCR (07/08/2025 1:09 PM EDT) Pathologist [facility] Hepatitis C Antibody Nonreactive Nonreactive [facility] Comment:Antibodies to HCV no t detected; does not exclude early acuteHCV infection. Blood Venous blood specimen / Unknown 07/08/2025 1:09 PM EDT 07/08/2025 4:04 PM EDT Juana [email or web address] LAB BLOOD ORDERABLES Final R esult Performing Organization Address [facility] Co de Phone Number [facility] [address] [place] [phone] * HIV-1/2 Antigen and Antibodies, Fourth Generation, with Reflexes (07/08/2025 1:09 PM EDT) HIV AB/AG Nonreactive Nonreactive [facility] Comment:HIV-1 p24 Ag and/or HIV-1/HIV-2 Ab not detected.A test result that is nonreactive does not exclude thepossibility of exposure to or infection with HIV-1 and/orHIV-2. Nonreactive results in this assay for individualswith prior exposure to HIV-1 and/or HIV-2 may be due toantigen and antibody levels that are below the limit ofdetection of this assay.The [employer] HIV Ag/Ab Combo assay result andsupplemental assay results should be interpreted inconjunction with the patient's clinical presentation,history and other laboratory results. If the results areinconsistent with clinical evidence, additional testing issuggested to confirm the result. Blood Venous blood specimen / Unknown 07/08/2025 1:09 PM EDT 07/08/2025 4:04 PM EDT Juana Pink DO LAB BLOOD ORDERABLES Final R esult [facility] [address] [place] [phone] * (ABNORMAL) CBC (07/08/2025 1:09 PM EDT) Pathologist [facility] White Blood Count 4.4(L) 4.8 - 10.8 X10*3/uL [facility] Red Blood Count 4.19(L) 4.20 - 5.50 X10*6/uL [facility] Hemoglobin 11.4(L) 12.0 - 16.0 g/dl [facility] Hematocrit 35.3(L) 37.0 - 47.0 % [facility] Mean Corpuscular Volume 84.2 80.0 - 98.0 fL [facility] Mean Corpuscular Hemoglobin 27.2 27.0 - 33.0 pg [facility] Mean Corpuscular HGB Conc 32.3 31.0 - 35.0 g/dl [facility] Red Cell Distribution Width 13.9 11.0 - 16.0 % [facility] Platelet Count 275 160 - 400 X10*3/uL [facility] Mean Platelet Volume 10.3 9.4 - 12.3 fL [facility] NRBC Pct Auto 0.0 0.0 - 0.2 /100WBC [facility] NRBC Abs Auto 0.000 0.0 - 0.012 X10*3/uL [facility] Blood Venous blood specimen / Unknown 07/08/2025 1:09 PM EDT 07/08/2025 4:04 PM EDT us Juana Pink DO LAB BLOOD ORDERABLES Final R esult [facility] [address] [place] [phone] * (ABNORMAL) Basic Metabolic Panel (07/08/2025 1:09 PM EDT) Sodium 139 135 - 145 mmol/L [facility] Potassium 3.8 3.3 - 5.1 mmol/L [facility] Chloride 105 96 - 108 mmol/L [facility] Carbon Dioxide 27 22 - 29 mmol/L [facility] Anion Gap 11(L) 12 - 20 [facility] Urea Nitrogen (BUN) 16 9 - 16 mg/dL [facility] Creatinine, Serum 0.83 0.5 - 1.4 mg/dL [facility] Estimated Glomerular Filt Rate >60 [facility] Comment:Chronic Kidney Disea se: Estimated GFR < 60 mL/min/1.35u6Wswwhf Kidney Disease: Estimated GFR < 15 mL/min/1.73m2 Glucose 89 60 - 115 mg/dL [facility] Calcium 9.3 8.4 - 10.2 mg/dL [facility] Blood Venous blood specimen / Unknown 07/08/2025 1:09 PM EDT 07/08/2025 4:04 PM EDT us Juana Pink DO LAB BLOOD ORDERABLES Final R esult Performing Organization Address City/[facility]/ZIP Co de Phone Number [facility] [address] [place] [phone] * Hemoglobin A1c (07/08/2025 1:09 PM EDT) Hemoglobin A1c 5.9 <6.0 % [facility] Comment:Hemoglobin A1C Refer ence Range Adults: 4.8 - 6.0 % Non diabetic: < 6.0 % Goal: < 7.0 %Additional Action Suggested: > 8.0 %Note: Hemoglobin A1c results are invalid for patients with abnormal amounts of HbF. Blood transfusions may impact the HbA1c concentration in the patient sample. Estimated Average Glucose 123 mg/dL [facility] Comment:eAG = Estimated ave rage glucose which is %A1C expressed asaverage glucose, using the formula of the H6O-TvtlydlDvgxjle Glucose study (ADAG), Diabetes Care, Vol.31,#8,2007 Blood Venous blood specimen / Unknown 07/08/2025 1:09 PM EDT 07/08/2025 4:11 PM EDT us Juana Pink DO LAB BLOOD ORDERABLES Final R esult Performing Organization Address City/[facility]/ZIP Co de Phone Number [facility] [address] [place] [phone] * Hepatic Function Panel (07/08/2025 1:09 PM EDT) Bilirubin, Total 0.2 0.0 - 1.0 mg/dL [facility] Bilirubin, Direct 0.2 0.0 - 0.5 mg/dL [facility] Aspartate Amino Transferase 26 5 - 31 U/L [facility] Alanine Aminotransferase 18 0 - 31 U/L [facility] Total Protein 7.8 6.5 - 8.0 g/dL [facility] Albumin Level 4.4 3.5 - 5.0 g/dL [facility] Alkaline Phosphatase 65 39 - 117 U/L [facility] Blood Venous blood specimen / Unknown 07/08/2025 1:09 PM EDT 07/08/2025 4:04 PM EDT Juana Joesph DO LAB BLOOD ORDERABLES Final R esult Performing Organization Address City/[facility]/ZIP Co de Phone Number [facility] [address] [place] [phone] * TSH (07/08/2025 1:09 PM EDT) Thyroid Stimulating Hormone 1.49 0.32 - 4.0 uIU/mL [facility] Comment:TSH 3rd Generation ( [facility]) Blood Venous blood specimen / Unknown 07/08/2025 1:09 PM EDT 07/08/2025 4:04 PM EDT Juana Pink DO LAB BLOOD ORDERABLES Final R esult Performing Organization Address City/[facility]/ZIP Co de Phone Number [facility] [address] [place] [phone] * Lipid Panel, Standard (07/08/2025 1:09 PM EDT) Triglycerides 46 <150 mg/dL [facility] Comment:Desirable Triglyceri de: less than 150 mg/dLBorderline High Triglyceride 150-199 mg/dLHigh Triglyceride: 200-499 mg/dLVery High Triglyceride: greater than or equal to 5OO mg/dL Cholesterol 126 <200 mg/dL [facility] Comment:Desirable Cholestero l: less than 200 mg/dLBorderline High Cholesterol: 200-239 mg/dLHigh Cholesterol: greater than 239 mg/dL LDL Cholesterol Calculated 73 <100 mg/dL [facility] Comment:Desirable LDL: less than 100 mg/dLNear Optimal/Above Optimal LDL: 110- 129 mg/dLBorderline High LDL: 130-159 mg/dLHigh LDL: 160-189 mg/dLVery High LDL: greater than or equal to 190 mg/dL HDL Cholesterol 44 >40 mg/dL [facility] Comment:Desirable HDL: great er than 40 mg/dL Note: This HDL assay may give artificially low results in patients with liver disease. Blood Venous blood specimen / Unknown 07/08/2025 1:09 PM EDT 07/08/2025 4:04 PM EDT Juana Pink DO LAB BLOOD ORDERABLES Final R esult Performing Organization Address City/[facility]/ZIP Co de Phone Number [facility] [address] [place] [phone] * Vitamin D, 25-Hydroxy, Total, Immunoassay (07/08/2025 1:09 PM EDT) [facility] Vitamin D 25-OH Total 31.8 >30 ng/mL [facility] Comment: Health Based Reference Values*< 20 ng/mL Ghcdumyjm26-36 ng/mL Insufficient> 30 ng/mL Sufficient*Vamsi SEGUNDO. N Engl J Med. 2007;357:266-280There is no well-established upper level of normal vitamin Dlevels. Some laboratories use 50 ng/mL as an upper limit ofnormal. However, toxicity is patient-dependent and may occurat any level. Careful correlation with the patient'spresentation is necessary and, if there is concern forvitamin D toxicity, treatment should be consideredirrespective of the serum level.Care must be taken in interpreting Vitamin D results fromdifferent laboratories and methodologies. Published datademonstrated that results from patients undergoinghemodialysis may show a negative bias when tested withvarious automated 25-OH vitamin D assays when compared toLC-MS/MS.When testing samples from patients whose predominant form ofVitamin D is Vitamin D2, such as patients receiving VitaminD2 supplementation, results that are subtherapeutic shouldbe confirmed with another method such as LC-MS/MS. Blood Venous blood specimen / Unknown 07/08/2025 1:09 PM EDT 07/08/2025 4:04 PM EDT Juana Pink DO LAB BLOOD ORDERABLES Final R esult Performing Organization Address City/[facility]/ZIP Co de Phone Number [facility] [address] [place] [phone] * T4, Free (07/08/2025 1:09 PM EDT) Free T4 (Free Thyroxine) 0.93 0.71 - 1.85 ng/dL [facility] Blood Venous blood specimen / Unknown 07/08/2025 1:09 PM EDT 07/08/2025 4:04 PM EDT us Juana Pink DO LAB BLOOD ORDERABLES Final R esult [facility] [address] [place] [phone] documented in this encounter Visit Diagnoses [...] documented as of this encounter Care Teams Chlorine Operator Relationship Specialty Start Date End Date Juana Pink DO [address] [place] [phone] PCP - General Family Medicine 10/23/18 documented as of this encounter
--- OUTSIDE RECORDS SUMMARY | 2025-07-10 12:18 | XMS_ITS | Encounter Summary ---
Author Organization [employer] Address [address] [place] [address] 7 [place] [address] Care Team Providers Care Trade Show Coordinator Name Role Phone Juana Pink DO Primary Care Provider + [phone] Reason for Visit * Reason Onset Date Comments Nurse Triage 01/24/2024 Encounter Details Date Type Department Care Team ([facility] st Contact Info) Description 01/24/2024 Telephone [facility] [address] [place], [place] [phone] Juana Pink DO [address] [place], [place] [phone] Nurse Triage Social History Tobacco Use Types [...] might happen 0 01/26/2024 1:00 PM KORINAT Roshan Juarez MA MARGOTH-7 Total Score 3 01/26/2024 [...] documented as of this encounter Care Teams Trade Show Coordinator Relationship Specialty Start Date End Date Juana Pink DO [address] [place] [address] PCP - General Family Medicine 10/23/18 documented as of this encounter
--- OUTSIDE RECORDS SUMMARY | 2025-07-10 12:18 | XMS_ITS | Clinical Summary ---
Author Organization [facility] ity Address [address] [place] [address] Care Team Providers Care Digital Analytics Manager Name Role Phone Unavailable Primary Care Provider [...]
--- OUTSIDE RECORDS SUMMARY | 2025-07-10 12:18 | XMS_ITS | Encounter Summary ---
Author Organization [employer] Address [address] [place] [address] 7 [place] [address] Care Team Providers Care Mechanical Lead Name Role Phone LunaJuana del toro Primary Care Provider + [phone] Encounter Details Date Type Department Care Team [...] documented as of this encounter Care Teams Mechanical Lead Relationship Specialty Start Date End Date Juana Pink DO [address] [place] [address] PCP - General Family Medicine 10/23/18 documented as of this encounter
--- OUTSIDE RECORDS SUMMARY | 2025-07-10 12:18 | XMS_ITS | Encounter Summary ---
Author Organization [employer] Address [address] [place] [address] 7 [place] [address] Care Team Providers Care Inspector Process Name Role Phone Juana Pink DO Primary Care Provider + [phone] Reason for Visit * Reason Onset Date Comments Chart Prep 07/07/2025 Encounter Details Date Type Department Care Team ([facility] st Contact Info) Description 07/07/2025 Telephone [facility] MEDICINE [address] [place], [place] [phone] Juana Pink DO [address] [place], [place] [phone] Chart Prep Social History Tobacco Use Types [...] documented as of this encounter Care Teams Inspector Process Relationship Specialty Start Date End Date Juana Pink DO [address] [place] [address] PCP - General Family Medicine 10/23/18 documented as of this encounter
--- OUTSIDE RECORDS SUMMARY | 2025-07-10 12:18 | XMS_ITS | Clinical Summary ---
Author Organization [employer] Address [address] [place] [address] 7 [place] [address] Care Team Providers Care Neurological Surgeon Name Role Phone JoesphTyraJuana Primary Care Provider + [phone] Allergies No known active allergies Medications Diclofenac [...] Description 07/08/2025 11:30 AM EDT Office Visit [facility] [address] [place] [phone] Juana Pink DO Essential hypertension (Primary Dx); Fatty liver; Allergic rhinitis, unspecified seasonality, unspecified trigger; Meralgia paresthetica of right side; Peripheral polyneuropathy; Patient desires ; Daily headache; Sleep-disordered breathing; Healthcare maintenance; Dietary counseling; Exercise counseling; Acute pain of left hip 07/08/2025 Travel 07/07/2025 Telephone [facility] [address] [place] [phone] Juana Pink DO Chart Prep 06/30/2025 Patient Outreach [facility] [address] [place] [phone] Juana Pink DO Pre-visit Planning ((Unable to reach for PVP screening, LVM) to be completed in office ) 06/24/[address] [address] Juana Pink, Recall Appointment 06/24/2025 Travel from [...] the past 12 months, has t he [employer], gas, oil or water company threatened to [...] Date Last Done Comments Disability Screening 1985 Family Planning (PISQ) 2000 HPV Vaccines (1 - 3-dose series) 2000 Hepatitis A Vaccines (1 of 2 - Risk 2-dose series) 2004 Hepatitis B Vaccines (2 of 3 - 19+ 3-dose series) 08/23/2023 07/26/2023 SDOH Screening 12/06/2024 12/06/2023 Mammogram 02/26/2025 08/29/2024, 05/0 12/2023, 08/25/2023, Additional history exists COVID-19 Vaccine (2024- season) 2025 12/27/2021, 07/22/2021 Influenza Vaccine (#1) 2025 , 07/26/2023, 08/07/2015 Pap Smear 09/13/2025 09/13/2022, 05/06/2022 Alcohol/Substance Use Screening 07/08/2026 07/08/2025 Depression Screening 07/08/2026 07/08/2025, 07/08/20 25 Diabetes: Hemoglobin A1C 07/08/2026 025, 03/12/2024, 01/26/2023, Additional history exists Tobacco Screening 07/08/2026 07/08/2025 Cervical Cancer Screening 09/14/2027 HPV/Cotest 09/14/2027 09/14/2022, 04/22, 03/06/2018, Additional history exists Lipid Panel 07/08/2030 07/08/2025, 02/21, 01/26/2023, Additional history exists DTaP/Tdap/Td Vaccines (3 - Td or Tdap) 11/30/2031 11/30/2021, 10/05/2011, 02/07/2006 Zoster Vaccines (1 of 2) 2035 RSV Patients and Patients Aged 60 years or older (1 - 1-dose 75+ series) 2060 HIV Screening Completed 07/08/2025, 02/21, 03/12/2024, Additional history exists Hepatitis C Screening Completed 07/08/2025 , 03/12/2024, 03/12/2024, Additional history exists HIB Vaccines Aged Out [...] PM EDT Acute pain of left hip ALPHA FETOPROTEIN, [...] Exercise counseling Acute pain of left hip VITAMIN D,25-OH,TOTAL,IA [...] LIMITED RIGHT Routine 08/29/2024 11:30 AM EST HPV MRNA E6/E7 REFLEX TO HPV 16, [...] PM EDT Narrative 07/08/2025 1:50 PM EDT [address] [address] XRay Report Signed Patient: Miguel Angel Hall MR#: [id number] : 1985 Acct:[id number] Age/Sex: 40 / F ADM Date: 07/08/25 Loc: HO.HHCX Attending Dr: Juana Pink DO Ordering Physician: Juana Pink DO Date of Service: 07/08/25 Procedure(s): XR hip LT min 2V Accession Number(s): [id number] cc: Juana Pink DO Reason for Exam: [...] 07/08/25 1347 DD/ 1338 TD/TT: 07/08/25 1339 Senior Windows Systems Administrator: Procedure Note Donotuseinterpreter, Image - 07/08/2025 [place] [address] XRay Report Signed Patient: Miguel Angel Hall TMR#: [id number] : 1985Acct:[id number] Age/Sex: 40 / FADM Date: 07/08/25 Loc: HO.HHCX Attending Dr: Juana Pink DO Ordering Physician: Juana Pink DO Date of Service: 07/08/25 Procedure(s): XR hip LT min 2V Accession Number(s): [id number] cc: Juana Pink DO Reason for Exam: [...] 07/08/25 1347 DD/ 1338 TD/TT: 07/08/25 1339 Senior Windows Systems Administrator: Juana Pink DO IMG XR PROCEDURES Edited Res ult - Final * XR Lumbar Spine 2-3 Views (07/08/2025 1:38 PM EDT) Anatomical Region Laterality Modality Spine, L-spine Radiographic Temitope ging 07/08/2025 1:38 PM EDT Narrative 07/08/2025 1:48 PM EDT [address] [address] XRay Report Signed Patient: Miguel Angel Hall MR#: [id number] : 1985 Acct:[id number] Age/Sex: 40 / F ADM Date: 07/08/25 Loc: HO.HHX Attending Dr: Juana Pink DO Ordering Physician: Juana Pink DO Date of Service: 07/08/25 Procedure(s): XR lumbar spine 2-3V Accession Number(s): [id number] cc: Juana Pink DO Reason for Exam: [...] in OV> 07/08/25 1344 DD/ 1338 TD/TT: 07/08/251338 Senior Windows Systems Administrator: Procedure Note Susannahter, Image - 07/08/[address] [address] XRay Report Signed Patient: Miguel Angel Hall TMR#: [id number] : 1985Acct:[id number] Age/Sex: 40 / FADM Date: 07/08/25 Loc: HO.HHCX Attending Dr: Juana Pink DO Ordering Physician: Juana Pink DO Date of Service: 07/08/25 Procedure(s): XR lumbar spine 2-3V Accession Number(s): [id number] cc: Juana Pink DO Reason for Exam: [...] in OV> 07/08/25 1344 DD/ 1338 TD/TT: 07/08/251338 Senior Windows Systems Administrator: us Juana Pink DO IMG XR PROCEDURES Edited Res ult - Final * Vitamin D, 25-Hydroxy, Total, Immunoassay (07/08/2025 1:09 PM EDT) Vitamin D 25-OH Total 31.8 >30 ng/mL LABS Comment: Health Based Reference Values*< 20 ng/mL Zcddreaoe74-45 ng/mL Insufficient> 30 ng/mL Sufficient*Vamsi SEGUNDO. N [...] DO LAB BLOOD ORDERABLES Final R esult LABS [address] [place] [phone] * Hepatitis C Antibody with Reflex to HCV, RNA, Quantitative, Real-Time PCR (07/08/2025 1:09 PM EDT) Hepatitis C Antibody Nonreactive Nonreactive LABS Comment:Antibodies to HCV no t detected; does not exclude early acuteHCV infection. Blood Venous blood specimen / Unknown 07/08/2025 1:09 PM EDT 07/08/2025 4:04 PM EDT Juana Pink DO LAB BLOOD ORDERABLES Final R esult Performing Organization Address City/[facility]/ZIP Co de Phone Number LABS [address] [place] [phone] * Alpha-Fetoprotein, Tumor Marker (07/08/2025 1:09 PM EDT) Alpha Fetoprotein 5.8 ng/mL [facility] LABS Comment:Reference Range: <6. 1The use of AFP as a tumor marker in females is not recommended.This test was performed using the Fang Coulterchemiluminescent method. Values obtained fromdifferent assay methods cannot be usedinterchangeably. AFP levels, regardless ofvalue, should not be interpreted as absoluteevidence of the presence or absence of disease.THIS TEST WAS PERFORMED AT:[facility] [place] [id number] KEMP MD Blood Venous blood specimen / Unknown 07/08/2025 1:09 PM EDT 07/08/2025 4:04 PM EDT Juana Pink DO LAB BLOOD ORDERABLES Final R esult Performing Organization Address City/[facility]/ZIP Co de Phone Number LABS [address] [place] [phone] * RPR (Monitor) with Reflex to??Titer (07/08/2025 1:09 PM EDT) RPR (Monitor) w/Refl Titer NON-REACTI VE NON-REACT RAO LABS Comment:THIS TEST WAS PERFOR MED AT:[facility] [place] [phone] KEMP MD Rapid Plasma Reagin Ab Titer TNP LABS Blood Venous blood specimen / Unknown 07/08/2025 1:09 PM EDT 07/08/2025 4:04 PM EDT Juana Pavonak DO LAB BLOOD ORDERABLES Final R esult Performing Organization Address [facility]/ZIP Co de Phone Number LABS [address] [place] [phone] * HIV-1/2 Antigen and Antibodies, Fourth Generation, with Reflexes (07/08/2025 1:09 PM EDT) HIV AB/AG Nonreactive Nonreactive [facility] LABS Comment:HIV-1 p24 Ag and/or HIV-1/HIV-2 Ab not detected.A test result that is nonreactive does not exclude thepossibility of exposure to or infection with HIV-1 and/orHIV-2. Nonreactive results in this assay for individualswith prior exposure to HIV-1 and/or HIV-2 may be due toantigen and antibody levels that are below the limit ofdetection of this assay.The [employer] HIV Ag/Ab Combo assay result andsupplemental assay results should be interpreted inconjunction with the patient's clinical presentation,history and other laboratory results. If the results areinconsistent with clinical evidence, additional testing issuggested to confirm the result. Blood Venous blood specimen / Unknown 07/08/2025 1:09 PM EDT 07/08/2025 4:04 PM EDT Juana Carrascorachelclarence DO LAB BLOOD ORDERABLES Final R esult Performing Organization Address [facility]/ZIP Co de Phone Number LABS [address] [place] [phone] * (ABNORMAL) CBC (07/08/2025 1:09 PM EDT) White Blood Count 4.4(L) 4.8 - 10.8 X10*3/uL LABS Red Blood Count 4.19(L) 4.20 - 5.50 X10*6/uL LABS Hemoglobin 11.4(L) 12.0 - 16.0 g/dl LABS Hematocrit 35.3(L) 37.0 - 47.0 % LABS Mean Corpuscular Volume 84.2 80.0 - 98.0 fL LABS Mean Corpuscular Hemoglobin 27.2 27.0 - 33.0 pg LABS Mean Corpuscular HGB Conc 32.3 31.0 - 35.0 g/dl LABS Red Cell Distribution Width 13.9 11.0 - 16.0 % LABS Platelet Count 275 160 - 400 X10*3/uL LABS Mean Platelet Volume 10.3 9.4 - 12.3 fL LABS NRBC Pct Auto 0.0 0.0 - 0.2 /100WBC LABS NRBC Abs Auto 0.000 0.0 - 0.012 X10*3/uL LABS Blood Venous blood specimen / Unknown 07/08/2025 1:09 PM EDT 07/08/2025 4:04 PM EDT [facility] BLOOD ORDERABLES Final R esult Performing Organization Address City/[facility]/ZIP Co de Phone Number LABS [address] [place] [phone] * TSH (07/08/2025 1:09 PM EDT) Pathologist [facility] Thyroid Stimulating Hormone 1.49 0.32 - 4.0 uIU/mL LABS Comment:TSH 3rd Generation ( [employer]) Blood Venous blood specimen / Unknown 07/08/2025 1:09 PM EDT 07/08/2025 4:04 PM EDT [facility] LAB BLOOD ORDERABLES Final R esult Performing Organization Address City/[facility]/ZIP Co de Phone Number LABS [address] [place] [phone] * T4, Free (07/08/2025 1:09 PM EDT) Free T4 (Free Thyroxine) 0.93 0.71 - 1.85 ng/dL LABS Blood Venous blood specimen / Unknown 07/08/2025 1:09 PM EDT 07/08/2025 4:04 PM EDT Juana Joesph LAB BLOOD ORDERABLES Final R esult Performing Organization Address City/[facility] Co de Phone Number LABS [address] [place] [phone] * Hemoglobin A1c (07/08/2025 1:09 PM EDT) Hemoglobin A1c 5.9 <6.0 % [facility] LABS Comment:Hemoglobin A1C Refer ence Range Adults: 4.8 - 6.0 % Non diabetic: < 6.0 % Goal: < 7.0 %Additional Action Suggested: > 8.0 %Note: Hemoglobin A1c results are invalid for patients with abnormal amounts of HbF. Blood transfusions may impact the HbA1c concentration in the patient sample. Estimated Average Glucose 123 mg/dL LABS Comment:eAG = Estimated ave rage glucose which is %A1C expressed asaverage glucose, using the formula of the C8Y-MpqplueTppejld Glucose study (ADAG), Diabetes Care, Vol.31,#8,May. 2007 Blood Venous blood specimen / Unknown 07/08/2025 1:09 PM EDT 07/08/2025 4:11 PM EDT us Juana Joesph LAB BLOOD ORDERABLES Final R esult Performing Organization Address [facility]/ZIP Co de Phone Number LABS [address] [place] [phone] * Hepatic Function Panel (07/08/2025 1:09 PM EDT) Bilirubin, Total 0.2 0.0 - 1.0 mg/dL LABS Bilirubin, Direct 0.2 0.0 - 0.5 mg/dL LABS Aspartate Amino Transferase 26 5 - 31 U/L LABS Alanine Aminotransferase 18 0 - 31 U/L LABS Total Protein 7.8 6.5 - 8.0 g/dL LABS Albumin Level 4.4 3.5 - 5.0 g/dL LABS Alkaline Phosphatase 65 39 - 117 U/L LABS Blood Venous blood specimen / Unknown 07/08/2025 1:09 PM EDT 07/08/2025 4:04 PM EDT us Juana Pink DO LAB BLOOD ORDERABLES Final R esult LABS [address] [place] [phone] * Lipid Panel, Standard (07/08/2025 1:09 PM EDT) Triglycerides 46 <150 mg/dL [facility] LABS Comment:Desirable Triglyceri de: less than 150 mg/dLBorderline High Triglyceride 150-199 mg/dLHigh Triglyceride: 200-499 mg/dLVery High Triglyceride: greater than or equal to 5OO mg/dL Cholesterol 126 <200 mg/dL LABS Comment:Desirable Cholestero l: less than 200 mg/dLBorderline High Cholesterol: 200-239 mg/dLHigh Cholesterol: greater than 239 mg/dL LDL Cholesterol Calculated 73 <100 mg/dL LABS Comment:Desirable LDL: less than 100 mg/dLNear Optimal/Above Optimal LDL: 110- 129 mg/dLBorderline High LDL: 130-159 mg/dLHigh LDL: 160-189 mg/dLVery High LDL: greater than or equal to 190 mg/dL HDL Cholesterol 44 >40 mg/dL [facility] LABS Comment:Desirable HDL: great er than 40 mg/dL Note: This HDL assay may give artificially low results in patients with liver disease. Blood Venous blood specimen / Unknown 07/08/2025 1:09 PM EDT 07/08/2025 4:04 PM EDT us Juana Pink DO LAB BLOOD ORDERABLES Final R esult Performing Organization Address City/[facility] Co de Phone Number LABS [address] [place] [phone] * (ABNORMAL) Basic Metabolic Panel (07/08/2025 1:09 PM EDT) Sodium 139 135 - 145 mmol/L LABS Potassium 3.8 3.3 - 5.1 mmol/L LABS Chloride 105 96 - 108 mmol/L LABS Carbon Dioxide 27 22 - 29 mmol/L LABS Anion Gap 11(L) 12 - 20 LABS Urea Nitrogen (BUN) 16 9 - 16 mg/dL LABS Creatinine, Serum 0.83 0.5 - 1.4 mg/dL LABS Estimated Glomerular Filt Rate >60 LABS Comment:Chronic Kidney Disea se: Estimated GFR < 60 mL/min/1.23h6Wsfhan Kidney Disease: Estimated GFR < 15 mL/min/1.73m2 Glucose 89 60 - 115 mg/dL LABS Calcium 9.3 8.4 - 10.2 mg/dL LABS Blood Venous blood specimen / Unknown 07/08/2025 1:09 PM EDT 07/08/2025 4:04 PM EDT Juana Pink LAB BLOOD ORDERABLES Final R esult Performing Organization Address City/[facility]/ZIP Co de Phone Number LABS [address] [place] [phone] * BI US Breast Limited Right (08/29/2024 11:30 AM EST) Anatomical Region Laterality Modality Breast Right Ultrasound 08/29/2024 11:3 0 AM EST Narrative 09/06/2024 12:26 PM EST [facility] [address] [place] [address] Ultrasound Report Signed Patient: Miguel Angel Hall MR#: [id number] : 1985 Acct:[id number] Age/Sex: 39 / F ADM Date: 08/29/24 Loc: MAMMO Attending Dr: Juana Pink DO Ordering Physician: Juana Pink DO Date of Service: 08/29/24 Procedure(s): US breast RT limited mamm only Accession Number(s): [id number] cc: Juana Pink DO EXAMINATION: US DIAGNOSTIC [...] by: Ami Monteiro DO 09/06/2024 12:23 PM [facility] Dictated By: Ami Monteiro DO Signed By: <Electronically signed by Ami Monteiro DO in OV> 09/06/24 1223 DD/ 1130 TD/TT: 08/29/24 1144 Senior Windows Systems Administrator: Procedure Note Donotgiovanniinterpreter, Image - 09/06/2024 [facility] [address] [place] [address] Dr. [place]caraz, [place] [address] Ultrasound Report Signed Patient: Miguel Angel Hall TMR#: [id number] : 1985Acct:[id number] Age/Sex: 39 / FADM Date: 08/29/24 Loc: HO.MAMMO Attending Dr: Juana Pink DO Ordering Physician: Juana Pink DO Date of Service: 08/29/24 Procedure(s): US breast RT limited mamm only Accession Number(s): [id number] cc: Juana Pink DO EXAMINATION: US DIAGNOSTIC [...] 09/06/24 1223 DD/ 1130 TD/TT: 08/29/24 1144 Senior Windows Systems Administrator: us Juana Pink DO IMG US PROCEDURES Final Resu lt * HPV mRNA E6/E7 w/Reflex to HPV Genotypes 16, 18/45 (09/14/2022 8:40 AM EST) HPV nRNA E6/E7 Not Detected Not Detected LABS Comment:Methodology: Transcr iption-Mediated AmplificationThis assay detects E6/E7 viral messenger RNA (mRNA) from 14high-risk HPV types (16,18,31,33,35,39,45,51,52,56,58,59,66,68).Cervical sources are required for HPV testing.If a vaginal source from a patient who has had atotal hysterectomy with removal of cervix wassubmitted, please contact the testing laboratoryfor alternative testing options.For additional information, please refer tohttp://education.Levlr/faq/YAO521d0(This link if provided for information/educational purposes only.)THIS TEST WAS PERFORMED AT:[facility] [address],[place] [address]OCYYCANDREW KEMP MD HPV mRNA E6/E7 [facility] LABS HPV 16 RNA [facility] LABS HPV 18/45 RNA [facility] LABS 09/14/2022 8:40 AM EST 09/14/2022 8:40 AM EST [facility] External Provider LAB CYT OLOGY ORDERABLES Final Result LABS [address] [place] [address] [phone] * Pap Smear (09/13/2022 3:28 PM EST) 09/13/2022 3:28 PM EST 09/14/2022 8:40 AM EST Narrative LABS - 10/10/2022 3:53 PM EST ----- ------- Name: Miguel Angel Hall Rosalva Age/Sex: 37/F : 1985 Unit#: [id number] Attend Dr: Valerie SantanaM Re09/13/22 Status: DEP REF Location: [facility] Disch: ----- ------- SPEC : [id number] RECD: 09/14/22 STATUS: ARIA LYN NUM: [id number] MICHELLE: 09/13/[address] [facility] [address]: EstherValerie [facility] ENTERED: 09/14/22 SP TYPE: Pap Smr [...] 59, 66, 68) HPV testing performed by [facility], [place], [place]. See reference laboratory portion of the EMR for entire report. Clinical Information LMP: 09/06/22 Previous PAP test: 03/07/18, WNL Material Received [facility]-Cervical ----- ------- Signed (signature on file) Wanda Irvin 10/10/22 1553 ----- ------- END OF REPORT [facility] External Provider LAB CYT OLCHICOY ORDERABLES Final Result LABS [address] [place] [phone] from Last 3 Months or Most Recently Relevant to Health Maintenance Insurance [employer] C3 Care Teams Neurological Surgeon Relationship Specialty Start Date End Date Juana Pink DO [address] [place] [phone] PCP - General Family Medicine 10/23/18
--- OUTSIDE RECORDS SUMMARY | 2025-07-10 12:18 | XMS_ITS | Encounter Summary ---
Author Organization [employer] Address [address] [place] [address] [address] [place] [address] Care Team Providers Care Chief Yeoman Name Role Phone Juana Pink DO Primary Care Provider + [phone] Reason for Visit * Reason Onset Date Comments Nurse Triage 07/08/2024 Encounter Details Date Type Department Care Team ([facility] st Contact Info) Description 07/08/[address] [facility] MEDICINE [address] [place], [place] [phone] Juana Pink DO [address] [place], [place] [phone] Nurse Triage Social History Tobacco Use Types [...] a fibroid which has shrunk since last PROGRAM MANUFACTURING LEADER visit. Pt. Took a urine test today that came back negative. Pt. States she did have a miscarriage x 2 years ago and lost a baby at 5 months gestation. Pt. Does see Dr. Oshea from [facility] but, she see's Dr Pink as PCP and Dr. Oshea she states Is not always available . Pt. Wants to check vaginal area and do a blood test. I advised pt. To go to ED but pt. Declines to go to ED. I advised pt. That she should call her regular PARACHUTE INSPECTOR in the am to see if they can squeeze her in tomorrow, otherwise, pt. Wants to see foam rubber mixer at [facility]. Pt. Will call PROGRAM MANUFACTURING LEADER in am but she states That she knows she will not be available and is requesting appt. With [facility] PROGRAM MANUFACTURING LEADER. Appt. Made with Helga for 1:15pm tomorrow [...] documented as of this encounter Care Teams Chief Yeoman Relationship Specialty Start Date End Date Juana Pink DO [address] [place] [phone] PCP - General Family Medicine 10/23/18 documented as of this encounter
[2025-07-10 12:40] LABS: Microalbum/Creatinine Ratio Ur 22.4 ug/mg cr (<30)
== END 2025-07-10 10:22 | disposition home or self-care (01) ==
LOC: HO.HHCL 10:21
PROVIDERS: PCP Family Medicine; Visit Provider Family Medicine
DX: Z00.00 Encounter for general adult medical examination without abnormal findings (principal); I10 Essential (primary) hypertension; K76.0 Fatty (change of) liver, not elsewhere classified; J30.9 Allergic rhinitis, unspecified; G57.11 Meralgia paresthetica, right lower limb; G62.9 Polyneuropathy, unspecified; R51.9 Headache, unspecified; G47.30 Sleep apnea, unspecified; M25.552 Pain in left hip
CPT/HCPCS: 82043; 82570

== ENCOUNTER → 2025-07-16 20:00 | Outpatient (REF) | payer MEDICAID, SELFPAY ==
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
--- OUTSIDE RECORDS SUMMARY | 2025-07-16 20:17 | XMS_ITS | Clinical Summary ---
Author Organization [employer] Address [address] [place] [address] 7 [place] [address] Care Team Providers Care Gradall Operator Name Role Phone JoesphTyraJuana Primary Care Provider + [phone] Allergies No known active allergies Medications Diclofenac [...] Encounters Date Type Department Care Team Description 07/11/2025 Telephone [facility] MEDICINE [address] [place] [address] Juana Pink, Results 07/08/2025 11:30 AM EDT Office Visit [facility] MEDICINE [address] [place] [address] Juana Pink DO Essential hypertension (Primary Dx); Fatty liver; Allergic rhinitis, unspecified seasonality, unspecified trigger; Meralgia paresthetica of right side; Peripheral polyneuropathy; Patient desires ; Daily headache; Sleep-disordered breathing; Healthcare maintenance; Dietary counseling; Exercise counseling; Acute pain of left hip 07/08/2025 Travel 07/07/2025 Telephone [facility] MEDICINE [address] [place] [address] Juana Pink DO Chart Prep 06/30/2025 Patient Outreach [facility] MEDICINE [address] [place] [address] Juana Pink DO Pre-visit Planning ((Unable to reach for PVP screening, LVM) to be completed in office ) 06/24/2025 Telephone [facility] MEDICINE [address] [place] [address] Juana Pink DO Recall Appointment 06/24/2025 Travel from Last 3 [...] 08/25/2023, Additional history exists COVID-19 Vaccine ( season) 2025 12/27/2021, 07/22/2021 Influenza Vaccine (#1) [...] Procedure Name Priority Date/Time Associated Diagnosis Comments ALBUMIN, RANDOM URINE W/CREATININE Routine 07/10/2025 10:40 AM EDT Essential hypertension Fatty liver Allergic rhinitis, unspecified seasonality, unspecified trigger Meralgia paresthetica of right side Peripheral polyneuropathy Patient desires Daily headache Sleep-disordered breathing Healthcare maintenance Dietary counseling Exercise counseling Acute pain of left hip XR LUMBAR [...] Recently Relevant to Health Maintenance Results * Albumin, Random Urine W/Creatinine (07/10/2025 10:40 AM EDT) Creatinine, Urine 120.37 mg/dL [facility] Microalbumin Urine 27.0 mg/L [facility] Microalbum Creatinine Ratio Ur 22.4 <30 ug/mg cr [facility] Comment:Albumin/Creatinine R atio Reference Ranges: Normal: < 30 ug/mg creatinine Microalbuminuria: 30 - 300 ug/mg creatinineClinical Albuminuria: > 300 ug/mg creatinine Urine (Urine, Random) 07/10/2025 10:40 AM EDT 07/10/2025 11:52 AM EDT us Juana Pink DO LAB URINE ORDERABLES Final R esult [facility] [address] [place] [phone] * XR Hip 2 or 3 Views Left (07/08/2025 1:38 PM EDT) Anatomical Region Laterality Modality Lower Extremities, Hip Left Radiograp hic Imaging 07/08/2025 1:38 PM EDT Narrative 07/08/2025 1:50 PM EDT [address] [address] XRay Report Signed Patient: Miguel Angel Hall MR#: [id number] : 1985 Acct:[id number] Age/Sex: 40 / F ADM Date: 07/08/25 [facility]: Juana Pink DO Ordering Physician: Juana Pink DO Date of Service: 07/08/25 Procedure(s): XR hip LT min 2V Accession Number(s): [id number] cc: Juana Pink DO Reason for Exam: [...] 07/08/25 1347 DD/ 1338 TD/TT: 07/08/25 1339 Harbormaster: Procedure Note Donotuseinterpreter, Image - 07/08/[address] [address] XRay Report Signed Patient: Miguel Angel Hall TMR#: [id number] : 1985Acct:[id number] Age/Sex: 40 / FADM Date: 07/08/25 Loc: HO.HHCX Attending Dr: Juana Pink DO Ordering Physician: Juana Pink DO Date of Service: 07/08/25 Procedure(s): XR hip LT min 2V Accession Number(s): [id number] cc: Juana Pink DO Reason for Exam: [...] in OV> 07/08/25 1347 DD/ 1338 TD/TT: 07/08/251338 Harbormaster: Juana Pink DO IMG XR PROCEDURES Edited Res ult - Final * XR Lumbar Spine 2-3 Views (07/08/2025 1:38 PM EDT) Anatomical Region Laterality Modality Spine, L-spine Radiographic Temitope ging 07/08/2025 1:38 PM EDT Narrative 07/08/2025 1:48 PM EDT [address] XRay Report Signed Patient: Miguel Angel Hall MR#: [id number] : 1985 Acct:[id number] Age/Sex: 40 / F ADM Date: 07/08/25 Loc: HO.CX Attending Dr: Juana Pink DO Ordering Physician: Juana Pink DO Date of Service: 07/08/25 Procedure(s): XR lumbar spine 2-3V Accession Number(s): [id number] cc: Juana Pink DO Reason for Exam: [...] 07/08/25 1344 DD/ 1338 TD/TT: 07/08/25 1339 Harbormaster: Procedure Note Donotuseinterpreter, Image - 07/08/[address] [address] XRay Report Signed Patient: Miguel Angel Hall TMR#: [id number] : 1985Acct:[id number] Age/Sex: 40 / FADM Date: 07/08/25 Loc: HO.HHCX Attending Dr: Juana Pink DO Ordering Physician: Juana Pink DO Date of Service: 07/08/25 Procedure(s): XR lumbar spine 2-3V Accession Number(s): [id number] cc: Juana Pink DO Reason for Exam: [...] 07/08/25 1344 DD/ 1338 TD/TT: 07/08/25 1339 Harbormaster: Juana Pink DO IMG XR PROCEDURES Edited Res ult - Final * Vitamin D, 25-Hydroxy, Total, Immunoassay (07/08/2025 1:09 PM EDT) Vitamin D 25-OH Total 31.8 >30 ng/mL [facility] Comment: Health Based Reference Values*< 20 ng/mL Uurjxdxue75-93 ng/mL Insufficient> 30 ng/mL Sufficient*Vamsi SEGUNDO. N [...] ORDERABLES Final R esult Performing Organization Address [facility] Co de Phone Number [facility] [address] [place] [phone] * Hepatitis C Antibody with Reflex to HCV, RNA, Quantitative, Real-Time PCR (07/08/2025 1:09 PM EDT) Hepatitis C Antibody Nonreactive Nonreactive [facility] Comment:Antibodies to HCV no t detected; does not exclude early acuteHCV infection. Blood Venous blood specimen / Unknown 07/08/2025 1:09 PM EDT 07/08/2025 4:04 PM EDT Juana Pink LAB BLOOD ORDERABLES Final R esult Performing Organization Address [facility] Co de Phone Number [facility] [address] [place] [phone] * Alpha-Fetoprotein, Tumor Marker (07/08/2025 1:09 PM EDT) Alpha Fetoprotein 5.8 ng/mL [facility] Comment:Reference Range: <6. 1The use of AFP as a tumor marker in females is not recommended.This test was performed using the Fang Coulterchemiluminescent method. Values obtained fromdifferent assay methods cannot be usedinterchangeably. AFP levels, regardless ofvalue, should not be interpreted as absoluteevidence of the presence or absence of disease.THIS TEST WAS PERFORMED AT:[facility] [address] [phone] KEMP MD Blood Venous blood specimen / Unknown 07/08/2025 1:09 PM EDT 07/08/2025 4:04 PM EDT Juana Pink DO LAB BLOOD ORDERABLES Final R esult Performing Organization Address [facility]/ZIP Co de Phone Number [facility] [address] [place] [phone] * RPR (Monitor) with Reflex to??Titer (07/08/2025 1:09 PM EDT) RPR (Monitor) w/Refl Titer NON-REACTI VE NON-REACT RAO [facility] Comment:THIS TEST WAS PERFOR MED AT:[facility] [address] [phone] KEMP MD Rapid Plasma Reagin Ab Titer TNP [facility] Blood Venous blood specimen / Unknown 07/08/2025 1:09 PM EDT 07/08/2025 4:04 PM EDT Juana Pink DO LAB BLOOD ORDERABLES Final R esult Performing Organization Address [facility]/ZIP Co de Phone Number [facility] [address] [place] [phone] * HIV-1/2 Antigen and Antibodies, Fourth Generation, with Reflexes (07/08/2025 1:09 PM EDT) HIV AB/AG Nonreactive Nonreactive [facility] Comment:HIV-1 p24 Ag and/or HIV-1/HIV-2 Ab not detected.A test result that is nonreactive does not exclude thepossibility of exposure to or infection with HIV-1 and/orHIV-2. Nonreactive results in this assay for individualswith prior exposure to HIV-1 and/or HIV-2 may be due toantigen and antibody levels that are below the limit ofdetection of this assay.The Infusion [employer]SmartPill HIV Ag/Ab Combo assay result andsupplemental assay results should be interpreted inconjunction with the patient's clinical presentation,history and other laboratory results. If the results areinconsistent with clinical evidence, additional testing issuggested to confirm the result. Blood Venous blood specimen / Unknown 07/08/2025 1:09 PM EDT 07/08/2025 4:04 PM EDT us Juana Pink DO LAB BLOOD ORDERABLES Final R esult [facility] [address] [place] [phone] * (ABNORMAL) CBC (07/08/2025 1:09 PM EDT) White Blood Count 4.4(L) 4.8 - 10.8 X10*3/uL [facility] Red Blood Count 4.19(L) 4.20 - 5.50 X10*6/uL [facility] Hemoglobin 11.4(L) 12.0 - 16.0 g/dl [facility] Hematocrit 35.3(L) 37.0 - 47.0 % [facility] Mean Corpuscular Volume 84.2 80.0 - 98.0 fL [facility] Mean Corpuscular Hemoglobin 27.2 27.0 - 33.0 pg [facility] Mean Corpuscular HGB Conc 32.3 31.0 - 35.0 g/dl [facility] Red Cell Distribution Width 13.9 11.0 - 16.0 % [facility] Platelet Count 275 160 - 400 X10*3/uL [facility] Mean Platelet Volume 10.3 9.4 - 12.3 fL [facility] NRBC Pct Auto 0.0 0.0 - 0.2 /100WBC [facility] NRBC Abs Auto 0.000 0.0 - 0.012 X10*3/uL [facility] Blood Venous blood specimen / Unknown 07/08/2025 1:09 PM EDT 07/08/2025 4:04 PM EDT Juana Joesph LAB BLOOD ORDERABLES Final R esult Performing Organization Address City/[facility]/ZIP Co de Phone Number [facility] [address] [place] [phone] * TSH (07/08/2025 1:09 PM EDT) Thyroid Stimulating Hormone 1.49 0.32 - 4.0 uIU/mL [facility] Comment:TSH 3rd Generation ( [facility]) Blood Venous blood specimen / Unknown 07/08/2025 1:09 PM EDT 07/08/2025 4:04 PM EDT Juana Joesph LAB BLOOD ORDERABLES Final R esult Performing Organization Address [facility] Co de Phone Number [facility] [address] [place] [phone] * T4, Free (07/08/2025 1:09 PM EDT) Free T4 (Free Thyroxine) 0.93 0.71 - 1.85 ng/dL [facility] Blood Venous blood specimen / Unknown 07/08/2025 1:09 PM EDT 07/08/2025 4:04 PM EDT Juana Juralverto LAB BLOOD ORDERABLES Final R esult Performing Organization Address [facility] Co de Phone Number [facility] [address] [place] [phone] * Hemoglobin A1c (07/08/2025 1:09 PM EDT) Hemoglobin A1c 5.9 <6.0 % [facility] Comment:Hemoglobin A1C Refer ence Range Adults: 4.8 - 6.0 % Non diabetic: < 6.0 % Goal: < 7.0 %Additional Action Suggested: > 8.0 %Note: Hemoglobin A1c results are invalid for patients with abnormal amounts of HbF. Blood transfusions may impact the HbA1c concentration in the patient sample. Estimated Average Glucose 123 mg/dL [facility] Comment:eAG = Estimated ave rage glucose which is %A1C expressed asaverage glucose, using the formula of the J8J-IoahhxqKjuykxi Glucose study (ADAG), Diabetes Care, Vol.31,#8,2007 Blood Venous blood specimen / Unknown 07/08/2025 1:09 PM EDT 07/08/2025 4:11 PM EDT Juana Pink DO LAB BLOOD ORDERABLES Final R esult [facility] [address] [place] [phone] * Hepatic Function Panel (07/08/2025 1:09 PM EDT) Bilirubin, Total 0.2 0.0 - 1.0 mg/dL [facility] Bilirubin, Direct 0.2 0.0 - 0.5 mg/dL [facility] Aspartate Amino Transferase 26 5 - 31 U/L [facility] Alanine Aminotransferase 18 0 - 31 U/L [facility] Total Protein 7.8 6.5 - 8.0 g/dL [facility] Albumin Level 4.4 3.5 - 5.0 g/dL [facility] Alkaline Phosphatase 65 39 - 117 U/L [facility] Blood Venous blood specimen / Unknown 07/08/2025 1:09 PM EDT 07/08/2025 4:04 PM EDT Juanarenae Pink DO LAB BLOOD ORDERABLES Final R esult Performing Organization Address City/[facility] Co de Phone Number [facility] [address] [place] [phone] * Lipid Panel, Standard (07/08/2025 1:09 PM EDT) Triglycerides 46 <150 mg/dL [facility] Comment:Desirable Triglyceri de: less than 150 mg/dLBorderline High Triglyceride 150-199 mg/dLHigh Triglyceride: 200-499 mg/dLVery High Triglyceride: greater than or equal to 5OO mg/dL Cholesterol 126 <200 mg/dL [facility] Comment:Desirable Cholestero l: less than 200 mg/dLBorderline High Cholesterol: 200-239 mg/dLHigh Cholesterol: greater than 239 mg/dL LDL Cholesterol Calculated 73 <100 mg/dL [facility] Comment:Desirable LDL: less than 100 mg/dLNear Optimal/Above Optimal LDL: 110- 129 mg/dLBorderline High LDL: 130-159 mg/dLHigh LDL: 160-189 mg/dLVery High LDL: greater than or equal to 190 mg/dL HDL Cholesterol 44 >40 mg/dL [facility] Comment:Desirable HDL: great er than 40 mg/dL Note: This HDL assay may give artificially low results in patients with liver disease. Blood Venous blood specimen / Unknown 07/08/2025 1:09 PM EDT 07/08/2025 4:04 PM EDT Juana Pink DO LAB BLOOD ORDERABLES Final R esult Performing Organization Address [facility] Co de Phone Number [facility] [address] [place] [phone] * (ABNORMAL) Basic Metabolic Panel (07/08/2025 1:09 PM EDT) Sodium 139 135 - 145 mmol/L [facility] Potassium 3.8 3.3 - 5.1 mmol/L [facility] Chloride 105 96 - 108 mmol/L [facility] Carbon Dioxide 27 22 - 29 mmol/L [facility] Anion Gap 11(L) 12 - 20 [facility] Urea Nitrogen (BUN) 16 9 - 16 mg/dL [facility] Creatinine, Serum 0.83 0.5 - 1.4 mg/dL [facility] Estimated Glomerular Filt Rate >60 [facility] Comment:Chronic Kidney Disea se: Estimated GFR < 60 mL/min/1.88d4Msecnq Kidney Disease: Estimated GFR < 15 mL/min/1.73m2 Glucose 89 60 - 115 mg/dL [facility] Calcium 9.3 8.4 - 10.2 mg/dL [facility] Blood Venous blood specimen / Unknown 07/08/2025 1:09 PM EDT 07/08/2025 4:04 PM EDT Juana Pink DO LAB BLOOD ORDERABLES Final R esult Performing Organization Address City/State/[facility] Co de Phone Number [facility] [address] [place] [phone] * BI US Breast Limited Right (08/29/2024 11:30 AM EST) Anatomical Region Laterality Modality Breast Right Ultrasound 08/29/2024 11:3 0 AM EST Narrative 09/06/2024 12:26 PM EST [address] [place] [address] Ultrasound Report Signed Patient: Miguel Angel Hall MR#: [id number] : 1985 Acct:[id number] Age/Sex: 39 / F ADM Date: 08/29/24 Loc: HO.MAMMO Attending Dr: Juana Pink DO Ordering Physician: Juana Pink DO Date of Service: 08/29/24 Procedure(s): US breast RT limited mamm only Accession Number(s): [id number] cc: Juana Pink DO EXAMINATION: US DIAGNOSTIC [...] by: Ami Monteiro DO 09/06/2024 12:23 PM [facility] Dictated By: Ami Monteiro DO Signed By: <Electronically signed by Ami Monteiro DO in OV> 09/06/24 1223 DD/ 1130 TD/TT: 08/29/24 1144 Harbormaster: Procedure Note Donotuseinterpreter, Image - [facility]/06/[facility] [address] [place] [address] Ultrasound Report Signed Patient: Miguel Angel Hall TMR#: [id number] : 1985Acct:[id number] Age/Sex: 39 / FADM Date: 08/29/24 Loc: HO.MAMMO Attending Dr: Juana Pink DO Ordering Physician: Juana Pink DO Date of Service: 08/29/24 Procedure(s): US breast RT limited mamm only Accession Number(s): [id number] cc: Juana Pink DO EXAMINATION: US DIAGNOSTIC [...] 09/06/24 1223 DD/ 1130 TD/TT: 08/29/24 1144 Harbormaster: us Juana Pink DO IMG US PROCEDURES Final Resu lt * HPV mRNA E6/E7 w/Reflex to HPV Genotypes 16, 18/45 (09/14/2022 8:40 AM EST) HPV nRNA E6/E7 Not Detected Not Detected [facility] Comment:Methodology: Transcr iption-Mediated AmplificationThis assay detects E6/E7 viral messenger RNA (mRNA) from 14high-risk HPV types (16,18,31,33,35,39,45,51,52,56,58,59,66,68).Cervical sources are required for HPV testing.If a vaginal source from a patient who has had atotal hysterectomy with removal of cervix wassubmitted, please contact the testing laboratoryfor alternative testing options.For additional information, please refer tohttp://education.[employer]/faq/KXY379v3(This link if provided for information/educational purposes only.)THIS TEST WAS PERFORMED AT:[address] [place] [address],[place] [phone] KEMP MD HPV mRNA E6/E7 TNP [facility] HPV 16 RNA TNP [facility] HPV 18/45 RNA TNP [facility] 09/14/2022 8:40 AM EST 09/14/2022 8:40 AM EST [facility] External Provider LAB CYT OLOGY ORDERABLES Final Result Performing Organization Address City/State/[facility] Co de Phone Number [facility] [address] [place] [phone] * Pap Smear (09/13/2022 3:28 PM EST) 09/13/2022 3:28 PM EST 09/14/2022 8:40 AM EST Narrative [facility] - 10/10/2022 3:53 PM EST ----- ------- Name: Miguel Angel Hall Age/Sex: 37/F : 1985 Unit#: [id number] Attend Dr: Valerie Santana CNM Re09/13/22 Status: ANEESH BARNES Location: [facility] Disch: ----- ------- SPEC : [id number] RECD: 09/14/22 STATUS: ARIA LYN NUM: [id number] MICHELLE: 09/13/22-1528 [facility] DR: EstherValerie [facility] ENTERED: 09/14/22 SP TYPE: Pap Smr OTHR : ORDERED: Pap Smear Interpretation Satisfactory for evaluation. Negative for intraepithelial lesion or malignancy. Coccobacilli consistent with shift in vaginal joshua. HPV mRNA E6/E7: NOT DETECTED This assay detects E6/E7 viral messenger RNA (mRNA) from 14 high-risk HPV types (16, 18, 31, 33, 35, 39, 45, 51, 52, 56, 58, 59, 66, 68) HPV testing performed by [facility], [place], [place]. See reference laboratory portion of the EMR for entire report. Clinical Information LMP: 09/06/22 Previous PAP test: 03/07/18, WNL Material Received ThinPrep-Cervical ----- ------- Signed (signature on file) Wanda Nichols Albaro 10/10/22 1553 ----- ------- END OF REPORT [facility] External Provider LAB CYT OLOGY ORDERABLES Final Result [facility] [address] [place] [phone] from Last 3 Months or Most Recently Relevant to Health Maintenance Insurance [facility] C3 Care Teams Gradall Operator Relationship Specialty Start Date End Date Juana Pink DO [address] [place] [phone] PCP - General Family Medicine 10/23/18
--- OUTSIDE RECORDS SUMMARY | 2025-07-16 20:17 | XMS_ITS | Encounter Summary ---
Author Organization [employer] Address [address] [place] [address] [address] [place] [address] Care Team Providers Care Health Care Administrator Name Role Phone Juana Pink DO Primary Care Provider + [phone] Reason for Visit * Reason Onset Date Comments Nurse Triage 01/24/2024 Encounter Details Date Type Department Care Team ([facility] st Contact Info) Description 01/24/[address] [facility] MEDICINE [address] [place], [place] [phone] Juana Pink DO [address] [place], [place] [phone] Nurse Triage Social History Tobacco Use Types [...] documented as of this encounter Care Teams Health Care Administrator Relationship Specialty Start Date End Date Juana Pink DO [address] [place] [address] PCP - General Family Medicine 10/23/18 documented as of this encounter
--- OUTSIDE RECORDS SUMMARY | 2025-07-16 20:17 | XMS_ITS | Clinical Summary ---
Author Organization [facility] ity Address [address] [place] [address] Care Team Providers Care Lumber Tying Machine Operator Name Role Phone Unavailable Primary Care Provider [...]
--- OUTSIDE RECORDS SUMMARY | 2025-07-16 20:17 | XMS_ITS | Encounter Summary ---
Author Organization [employer] Address [address] [facility] [address] [place] [address] Care Team Providers Care Rooter Operator Name Role Phone Juana Pink DO Primary Care Provider + [phone] Reason for Visit * Reason Onset Date Comments Results 07/11/2025 Encounter Details Date Type Department Care Team ([facility] st Contact Info) Description 07/11/2025 Telephone [facility] [address] [place], [place] [phone] Juana Pink DO [address] [place], [place] [phone] Results Social History Tobacco Use Types Packs/Day Years [...] encounter Miscellaneous Notes * Telephone Encounter - Renee Muhammad RN - 07/11/2025 2:20 PM EDT TC returned to pt. And advised all labwork from 07/08/25 returned stable, L hip x-ray returned with no findings and lower back x-ray returned showing minimal degenerative changes. Pt. Verbalizes understanding and has no questions or concerns * Telephone Encounter - Al Clark - 07/11/2025 2:00 PM EDT TC from pt requesting call back regarding Results. Type of results: labs and urinalysis Date when done: 07/08/25 Facility: results in chart documented in this encounter Plan of Treatment Not on file documented as of this encounter Visit Diagnoses Not on filedocumented in this encounter Additional Health Concerns Assessment Noted Time PHQ-9 Depression Total Score: 4 07/08/20 11:48 AM EDT documented as of this encounter Care Teams Rooter Operator Relationship Specialty Start Date End Date Juana Pink DO [address] [place] [address] PCP - General Family Medicine 10/23/18 documented as of this encounter
--- OUTSIDE RECORDS SUMMARY | 2025-07-16 20:17 | XMS_ITS | Encounter Summary ---
Author Organization [employer] Address [address] [place] [address] [address] [place] [address] Care Team Providers Care Paraffiner Name Role Phone Juana Pink DO Primary Care Provider + [phone] Reason for Visit * Reason Onset Date Comments Nurse Triage 07/08/2024 Encounter Details Date Type Department Care Team ([facility] st Contact Info) Description 07/08/2024 Telephone [facility] 230 [place], [place] [phone] Juana Pink DO 230 [place], [place] [phone] Nurse Triage Social History Tobacco Use Types [...] a fibroid which has shrunk since last [employer] visit. Pt. Took a urine test today that came back negative. Pt. States she did have a miscarriage x 2 years ago and lost a baby at 5 months gestation. Pt. Does see Dr. Oshea from [facility] but, she see's Dr Pink as PCP and Dr. Oshea she states Is not always available . Pt. Wants to check vaginal area and do a blood test. I advised pt. To go to ED but pt. Declines to go to ED. I advised pt. That she should call her regular DIRECTOR SOCIAL SERVICE in the am to see if they can squeeze her in tomorrow, otherwise, pt. Wants to see split leather mosser at [facility]. Pt. Will call [employer] in am but she states That she knows she will not be available and is requesting appt. With [facility] [employer]. Appt. Made with Helga for 1:15pm tomorrow [...] documented as of this encounter Care Teams Paraffiner Relationship Specialty Start Date End Date Juana Pink DO [address] [place] [id number] PCP - General Family Medicine 10/23/18 documented as of this encounter
== END ==
LOC: HO.SL 20:00
PROVIDERS: PCP Family Medicine; Visit Provider Family Medicine
DX: G47.30 Sleep apnea, unspecified (principal)
CPT/HCPCS: 95810

== ENCOUNTER → 2025-07-16 21:00 | Outpatient (BNV) | payer MEDICAID, SELFPAY | PROVIDERS: PCP Family Medicine; Visit Provider Internal Medicine | DX: G47.33 Obstructive sleep apnea (adult) (pediatric) (principal); R06.83 Snoring | CPT/HCPCS: 95810 ==

== ENCOUNTER 2025-09-01 14:28 | Outpatient (REF) | payer MEDICAID, SELFPAY ==
--- OUTSIDE RECORDS SUMMARY | 2025-08-22 10:15 | XMS_ITS | Encounter Summary ---
Author Organization [employer] Address [address] [place] [address] Care Team Providers Care Rehabilitation Construction Specialist Name Role Phone Juana Pink DO Primary Care Provider [phone] Reason for Referral * Neurology (Routine) - Authorized Specialty Diagnoses / Procedures Referred By Charli sevilla Referred To Contact Diagnoses Bilateral carpal tunnel syndrome Procedures Nerve conduction test Juana Pink DO [address] [place] [address] Phone: tel: fax: [address] Phone: tel: fax: Referral ID Status Reason Start Date Expiration Date V isits Requested Visits Authorized [id number] Authorized 08/31/2025 08/31/2026 1 1 * Neurology (Routine) - Authorized Specialty Diagnoses / Procedures Referred By Contac t Referred To Contact Diagnoses Bilateral carpal tunnel syndrome Procedures EMG Juana Pink DO [address] [place] [address] Phone: tel: fax: [address] Phone: tel: fax: Referral ID Status Reason Start Date Expiration Date V isits Requested Visits Authorized [id number] Authorized 08/31/2025 08/31/2026 1 1 * Consultation (Urgent) - Closed Specialty Diagnoses / Procedures Referred By Charli sevilla Referred To Contact Orthopaedic Surgery Diagnoses Bilateral carpal tunnel syndrome Juana Pink DO [address] [place] [address] Phone: tel: fax: [facility] [address] [place] [address] Drive [address] [place], [place] Phone: tel: fax: Referral ID Status Reason Start Date Expiration Date V isits Requested Visits Authorized [id number] Closed Specialty Services Required 08/31/2025 08/31/2026 6 6 * Imaging (Routine) - Authorized Specialty Diagnoses / Procedures Referred By Charli sevilla Referred To Contact Radiology Diagnoses Breast cancer screening by mammogram Procedures BI Mammogram Screening Tomosynthesis Bilateral Juana Pink DO [address] [place] [address] Phone: tel: fax: [address] Phone: tel: fax: Referral ID Status Reason Start Date Expiration Date V isits Requested Visits Authorized [id number] Authorized 08/22/2025 08/22/2026 1 1 Encounter Details Date Type Department Care Team (Latest Contact Info) Description 08/22/2025 11:15 AM EDT Procedure Visit [facility] [address] [place] [address] Juana Pink DO [address] [place] [address] Encounter for well woman exam with routine gynecological exam (Primary Dx); Breast cancer screening by mammogram; Candidal intertrigo; Obstructive sleep apnea; Bilateral carpal tunnel syndrome; Morbid obesity (CMS/HCC) (HCC); Encounter for immunization Social History Tobacco Use Types Packs/Day Years [...] Sign Reading Time Taken Comments Blood Pressure 138/80 08/22/2025 11:27 AM EDT Pulse 82 08/22/2025 11:27 AM EDT Temperature 36.9 C (98.4 F) 08/22/2025 11:27 AM EDT Respiratory Rate 21 08/22/2025 11:27 AM EDT Oxygen Saturation 98% 08/22/2025 11:27 AM EDT Inhaled Oxygen Concentration - - Weight 132 kg (292 lb) 08/22/2025 11:27 AM EDT Height 167.6 cm (5' 6 ) 08/22/2025 11:27 AM EDT Body Mass Index 47.13 08/22/2025 11:27 AM EDT documented in this encounter Progress Notes * Juana Pink, DO - 08/22/2025 11:15 AM EDT SUBJECTIVE: Miguel Angel Hall is a 40 y.o. year old female who presents for pap. HPI She c/o rash in her groin which is itchy. She denies any pain or redness. No vaginal discharge or itching. She has not tried any OTC meds. She says that her CTS have been getting worse. She is using the wrist splints nighty. She had sleep study last mos. She has not heard anything about weight loss medication. Review of Systems Constitutional: Negative for chills and fever. Respiratory: Negative for shortness of breath. Cardiovascular: Negative for chest pain and leg swelling. Gastrointestinal: Negative for abdominal pain, diarrhea and vomiting. Neurological: Negative for headaches. Patient Active Problem List Diagnosis Allergic rhinitis Chronic pelvic pain in female Chronic knee pain Nystagmus BMI 45.0-49.9, adult (CMS/HCC) (HCC) Fatty liver Vitamin D deficiency Essential hypertension History of repair of anterior cruciate ligament of right knee Meralgia paresthetica of right side Obstructive sleep apnea Bilateral carpal tunnel syndrome No Known Allergies OBJECTIVE Vitals: 08/22/25 1127 BP: 138/80 BP Location: Left arm Patient Position: Sitting BP Cuff Size: Adult Pulse: 82 Resp: 21 Temp: 98.4 ??F (36.9 ??C) TempSrc: Oral SpO2: 98% Weight: 292 lb (132 kg) Height: 5' 6 (1.676 m) Physical Exam Exam conducted with a igniter assembler present. Constitutional: General: She is not in acute distress. Appearance: Normal appearance. Cardiovascular: Rate and Rhythm: Normal rate and regular rhythm. Heart sounds: Normal heart sounds. No murmur heard. Pulmonary: Effort: Pulmonary effort is normal. Breath sounds: Normal breath sounds. No wheezing or rhonchi. Chest: Breasts: Right: No swelling, bleeding, inverted nipple, mass, nipple discharge, skin change or tenderness. Left: No swelling, bleeding, inverted nipple, mass, nipple discharge, skin change or tenderness. Comments: Pendulous breasts Genitourinary: General: Normal vulva. Labia: Right: No rash or lesion. Left: No rash or lesion. Vagina: No vaginal discharge, tenderness or lesions. Cervix: No cervical motion tenderness, discharge or lesion. Uterus: Normal. Adnexa: Right: No mass, tenderness or fullness. Left: No mass, tenderness or fullness. Lymphadenopathy: Upper Body: Right upper body: No axillary adenopathy. Left upper body: No axillary adenopathy. Neurological: General: No focal deficit present. Mental Status: She is alert and oriented to person, place, and time. Cranial Nerves: No cranial nerve deficit. Motor: No weakness. Gait: Gait normal. Psychiatric: Mood and Affect: Mood normal. ASSESSMENT/PLAN Diagnoses and all orders for this visit: Encounter for well woman exam with routine gynecological exam -pap and GC/CT sent -mammo BIRADS 23 Feb 2024 -> Breast US BIRADS 24 Aug 2024 -> referred for repeat - Pap Smear - Chlamydia/N. Gonorrhoeae RNA, TMA, Vaginal Breast cancer screening by mammogram - BI Mammogram Screening Tomosynthesis Bilateral; Future Candidal intertrigo -treat with clotrimazole cream BID until rash resolves -start nystatin powder daily after clotrimazole cream complete -advised contact [facility] if no improvement Obstructive sleep apnea S/p sleep study with moderate MAKEDA Jun 2024 -referred for autoPAP -refer for O/N pulse oximetery next visit Bilateral carpal tunnel syndrome With worsening symptoms -EMG/NCS with b/l CTS Jun 2022 -> referred for repeat -cont wrist splints nightly -referred to ortho for eval - Referral to Orthopaedic Surgery; Future - EMG; Future - Nerve conduction test; Future Morbid obesity (CMS/HCC) (HCC) Weight up 7lbs since last mos, desiring weight loss -she meets criteria for and has no contraindication to medical mgmt with GLP-1 -reviewed potential GLP-1 side effects with pt -will begin low dose zepbound weekly as phentermine contraindicated due to HTN Encounter for immunization - FLU VACCINE TRIVALENT [id number] (Fluarix) 19 yrs + F/U with me in 4 mos or sooner prn Current Outpatient Medications: albuterol 108 (90 Base) MCG/ACT inhaler, Inhale 2 puffs every 4 (four) hours if needed for wheezingor shortness of breath., Disp: 18 g, Rfl: 1 amitriptyline (Elavil) 10 MG tablet, Take 1-2 tablets (10-20 mg) by mouth at bedtime., Disp: 60 tablet, Rfl: 3 Blood Pressure Monitoring (Blood Pressure Cuff) misc, 1 Units 2 times daily., Disp: 1 each, Rfl: 0 cetirizine (ZyrTEC) 10 MG tablet, Take 1 tablet (10 mg) by mouth Once per day., Disp: 90 tablet, Rfl: 3 clotrimazole (Lotrimin) 1 % cream, Apply topically if needed in the morning and at bedtime (rash) for up to 28 days., Disp: 60 g, Rfl: 3 Diclofenac Sodium 1 % gel, Apply 2 g topically if needed in the morning, at noon, in the evening, and at bedtime (pain)., Disp: 150 g, Rfl: 3 hydroCHLOROthiazide (HYDRODiuril) 25 MG tablet, Take 1 tab daily by mouth, Disp: 90 tablet, Rfl: 3 hydrocortisone 2.5 % ointment, Apply topically if needed in the morning and at bedtime for rash., Disp: 28 g, Rfl: 1 lidocaine (Lidoderm) 5 % patch, Apply 2 patches topically if needed each day for mild pain. Remove & discard patch within 12 hours or as directed by MD., Disp: 60 patch, Rfl: 3 methocarbamol (Robaxin) 750 MG tablet, Take 750 mg by mouth 4 times daily., Disp: , Rfl: NIFEdipine XL (Procardia XL) 30 MG 24 hr tablet, Take 1 tablet (30 mg) by mouth Once per day. Do not crush, chew, or split., Disp: 90 tablet, Rfl: 3 nystatin (Mycostatin) 079849 UNIT/GM powder, Apply topically 2 times daily., Disp: 240 g, Rfl: 3 terbinafine (LamISIL AT) 1 % cream, Apply topically if needed in the morning and at bedtime (rash)., Disp: 42 g, Rfl: 1 Tirzepatide-Weight Management (Zepbound) 2.5 MG/0.5ML solution auto-injector, Inject 0.5 mL (2.5 mg) under the skin 1 (one) time per week., Disp: 2 mL, Rfl: 3 triamcinolone (Nasacort) 55 MCG/ACT nasal inhaler, Administer 2 sprays into each nostril Once per day., Disp: 49.5 g, Rfl: 3 documented in this encounter Miscellaneous Notes * Addendum Note - Sarina Peña RN - 08/22/2025 11:15 AM EDTAddended by: SARINA PEÑA on: 09/01/2025 10:05 AM Modules accepted: Orders documented in this encounter Plan of Treatment Scheduled Orders Name Type Priority Associated Diagnoses Orde r Schedule BI Mammogram Screening Tomosynthesis Bilateral Imaging Routine Breast cancer screening by mammogram Expected: 08/22/2025, Expires: 10/22/2026 EMG Neurology Routine Bilateral carpal tunnel syndrome Expected: 08/31/2025 (Approximate), Expires: 08/31/2026 Nerve conduction test Neurology Routine Bilateral carpal tunnel syndrome Expected: 08/31/2025 (Approximate), Expires: 08/31/2026 HPV DNA, Low/High Risk Lab Routine Encounter for well woman exam with routine gynecological exam Expected: 09/01/2025 (Approximate), Expires: 09/01/2026 Scheduled Referrals Name Type Priority Associated Diagnoses Order Schedule Referral to Orthopaedic Surgery Outpatient Referral Urgent Bilateral carpal tunnel syndrome Expected: 08/31/2025 (Approximate), Expires: 08/31/2026 documented as of this encounter Procedures Procedure Name Priority Date/Time Associated Diagnosis Comments PAP SMEAR Routine 08/22/2025 1:23 PM EDT Encounter for well woman exam with routine gynecological exam CHLAMYDIA/N. GONORRHOEAE RNA, TMA, UROGENITAL Routine 08/22/2025 11:24 AM EDT Encounter for well woman exam with routine gynecological exam documented in this encounter Results * Pap Smear (08/22/2025 1:23 PM EDT) Swab Cervical swab / Unknown 08/22/2025 1:23 PM EDT 08/25/2025 6:20 AM EST [facility] - 08/29/2025 3:32 PM EST ----- ------- Name: RafaelMiguel Angel rosario Age/Sex: 40/F : 1985 Unit#: [id number] Attend Dr: Re08/22/25 Status: PRE REF Location: [facility] Disch: ----- ------- SPEC : [id number] RECD: 08/25/25 STATUS: ARIA EBONI NUM: [id number] MICHELLE: 08/22/[address] [facility] [address]: Juana Pink DO ENTERED: 08/25/25 SP TYPE: Pap Smr [facility] DR: ORDERED: Pap Smear, PAP path review Interpretation General Category: Negative for intraepithelial lesion/malignancy. Adequacy: Endocervical component present. Interpretation: Reactive cellular changes. Hyperkeratosis Coccobacilli consistent with shift in vaginal joshua. Clinical Information LMP: 07/29/25 Previous PAP test: Other surgery: Other history: Material Received ThinPrep-Cervical ----- ------- Signed (signature on file) Shaye Xiang 08/29/25 1532 ----- ------- END OF REPORT Juana Pink DO LAB CYTOLOGY ORDERABLES Nidia henrry Result [facility] [address] [place] [phone] * Chlamydia/N. Gonorrhoeae RNA, TMA, Vaginal (08/22/2025 11:24 AM EDT) CT PCR NOT DETECTED Not Detect. [facility] Comment:A not detected test result does not exclude the possibilityof infection because test results can be affected byimproper specimen collection, concurrent antibiotic therapy,or the number of organisms in the specimen which may bebelow the sensitivity of the test. As with many diagnostictests, results from the Xpert CT/NG assay should beinterpreted in conjunction with other laboratory andclinical data available to the clinician.Xpert CT/NG performance has not been evaluated in patientsless than 14 years of age. The assay should not be used forthe evaluationof suspected sexual abuse or for other medico-legalindications. Additional testing is recommended in anycircumstance when false positive or false negative resultscould lead to adverse medical, social or psychologicalconsequences. NG PCR NOT DETECTED Not Detect. [facility] Comment:A not detected test result does not exclude the possibilityof infection because test results can be affected byimproper specimen collection, concurrent antibiotic therapy,or the number of organisms in the specimen which may bebelow the sensitivity of the test. As with many diagnostictests, results from the Xpert CT/NG assay should beinterpreted in conjunction with other laboratory andclinical data available to the clinician.Xpert CT/NG performance has not been evaluated in patientsless than 14 years of age. The assay should not be used forthe evaluationof suspected sexual abuse or for other medico-legalindications. Additional testing is recommended in anycircumstance when false positive or false negative resultscould lead to adverse medical, social or psychologicalconsequences. Swab (Vaginal Swab) 08/22/2025 11:24 AM EDT 08/22/2025 4:15 PM EDT Juana Pink DO LAB MICROBIOLOGY - GENERAL O RDERABLES Final Result [facility] [address] [place] [phone] [phone] documented in this encounter Visit Diagnoses Diagnosis Encounter for well woman exam with routine gynecological exam- Primary Breast cancer screening by mammogram Candidal intertrigo Candidiasis of skin and nails Obstructive sleep apnea Obstructive sleep apnea (adult) (pediatric) Bilateral carpal tunnel syndrome Carpal tunnel syndrome Morbid obesity (CMS/HCC) (HCC) Morbid obesity Encounter for immunization documented in this encounter Additional Health Concerns Assessment Noted Time PHQ-9 Depression Total Score: 4 07/08/20 25 11:48 AM EDT documented as of this encounter Care Teams Rehabilitation Construction Specialist Relationship Specialty Start Date End Date Juana Pink DO [address] [place] [phone] PCP - General Family Medicine 10/23/18 documented as of this encounter
[2025-08-23 13:01] LABS: CT PCR NOT DETECTED (Not Detect.); NG PCR NOT DETECTED (Not Detect.)
--- OUTSIDE RECORDS SUMMARY | 2025-09-01 16:47 | XMS_ITS | Encounter Summary ---
Author Organization [employer] Address [address] [facility] 7 [place] [address] Care Team Providers Care E Commerce Analyst Name Role Phone JoesphJuana Primary Care Provider + [phone] Reason for Visit * Reason Onset Date Comments Lab Orders 09/01/2025 Encounter Details Date Type Department Care Team ([facility] st Contact Info) Description 09/01/2025 Telephone [facility] [address] [place], [place] [phone] Renee Muhammad RN [address] [place] [address] Lab Orders Social History Tobacco Use Types Packs/Day Years [...] Telephone Encounter - Renee Muhammad RN - 09/01/2025 10:02 AM EST TC placed to [facility] lab, they report HPV can be added on to PAP testing from 08/22/25, requested orderis faxed. Order placed and faxed to [phone], confirmation received documented in this encounter Plan of Treatment Not on file documented as of this encounter Visit Diagnoses Not on filedocumented in this encounter Additional Health Concerns Assessment Noted Time PHQ-9 Depression Total Score: 4 07/08/20 25 11:48 AM EDT documented as of this encounter Care Teams E Commerce Analyst Relationship Specialty Start Date End Date Juana Pink DO [address] [place] [address] PCP - General Family Medicine 10/23/18 documented as of this encounter
--- OUTSIDE RECORDS SUMMARY | 2025-09-01 16:47 | XMS_ITS | Clinical Summary ---
Author Organization [facility] Address [address] [place] [address] Care Team Providers Care Fishery Biologist Name Role Phone Unavailable Primary Care Provider [...] Cervical Cancer Screening: P ap Smear 2006 HPV Vaccines (1 - 3-dose SCD M series) 2012 HIV Screening 09/24/2022 Hepatitis C Screening 09/24/2022 Social Influencers of Health Screening 09/24/2022 Depression Screening 10/23/2024 COVID-19 Vaccine ( - 2023-2 5 season) 2025 Influenza Vaccine (#1) 2025 RSV Immunization Adult Patie nts (1 - 1-dose 75+ series) 2060 HIB Vaccines Aged Out No longer eligi [...]
--- OUTSIDE RECORDS SUMMARY | 2025-09-01 16:47 | XMS_ITS | Encounter Summary ---
Author Organization [employer] Address [address] [place] [address] Care Team Providers Care Compliance Investigator Name Role Phone Juana Pink DO Primary Care Provider + [phone] Reason for Visit * Reason Onset Date Comments Durable Medical Equipment 08/19/2025 DME: C PAP Order Encounter Details Date Type Department Care Team ([facility] st Contact Info) Description 08/19/2025 Telephone [facility] 230 [place], [place] [phone] Juana Pink DO [address] [place], [place] [phone] Durable Medical Equipment (DME: CPAP Order) Social History Tobacco Use Types Packs/Day Years [...] encounter Miscellaneous Notes * Telephone Encounter - Ruby Butler - 09/01/2025 3:48 PM EST DME order for CPAP was generated and sent via FAX to [facility] along with supporting documentation. Confirmation was uploaded to Media. * Telephone Encounter - Juana Pink DO - 08/19/2025 10:00 PM EDT Pt had sleep study with moderate MAKEDA. Please initiate prescription for AutoPAP 6-20cm. Thank you. documented in this encounter Plan of Treatment Not on file documented as of this encounter Visit Diagnoses Not on filedocumented in this encounter Additional Health Concerns Assessment Noted Time PHQ-9 Depression Total Score: 4 07/08/20 25 11:48 AM EDT documented as of this encounter Care Teams Compliance Investigator Relationship Specialty Start Date End Date Juana Pink DO [address] [place] [address] PCP - General Family Medicine 10/23/18 documented as of this encounter
--- OUTSIDE RECORDS SUMMARY | 2025-09-01 16:47 | XMS_ITS | Encounter Summary ---
Author Organization [employer] Address [address] [place] [address] [address] [place] [address] Care Team Providers Care Follow Up Specialist Name Role Phone Juana Pink DO Primary Care Provider + [phone] Reason for Visit * Reason Onset Date Comments Nurse Triage 01/24/2024 Encounter Details Date Type Department Care Team ([facility] st Contact Info) Description 01/24/2024 Telephone [facility] [address] [place], [place] [phone] Juana Pink DO [address] [place], [place] [phone] Nurse Triage Social History Tobacco Use Types [...] documented as of this encounter Care Teams Follow Up Specialist Relationship Specialty Start Date End Date Juana Pink DO [address] [place] [address] PCP - General Family Medicine 10/23/18 documented as of this encounter
--- OUTSIDE RECORDS SUMMARY | 2025-09-01 16:47 | XMS_ITS | Clinical Summary ---
Author Organization [facility] Address [address] [place] [address] 7 [place] [address] Care Team Providers Care Management Sme Name Role Phone JoesphTyraJuana Primary Care Provider + [phone] Allergies No known active allergies Medications Diclofenac [...] 49.5 g 3 5 12/03/19 26 Active clotrimazole (Lotrimin) 1 % cream Apply topically if needed in the morning and at bedtime (rash) for up to 28 days. 60 g 3 5 09/28/20 25 Active nystatin (Mycostatin) 823584 UNIT/GM powder Apply topically 2 times daily. 240 g 3 5 08/31/20 26 Active Tirzepatide-Weigh t Management (Zepbound) 2.5 MG/0.5ML solution auto-injector Inject 0.5 mL (2.5 mg) under the skin 1 (one) time per week. 2 mL 3 5 Active Active Problems Problem Noted Date Diagnosed Date Bilateral carpal tunnel syndrome 08/31/2025 Obstructive sleep apnea 08/22/2025 Meralgia paresthetica of right side 12/06/2023 Assessment [...] Encounters: 11/06/24 (!) 160/100 07/09/24 (!) 160/100 07/08/24 (!) 144/98 01/26/24 (!) 154/102 12/15/23 152/90 [...] pain in female 08/07/2015 Nystagmus 08/07/2015 BMI 45.0-49.9, adult ([facility]) 08/07/2015 Assessment & Plan (11/10/2024 6:25 PM [...] office if you feel worse or fever Dietary counseling 11/06/2024 Assessment & Plan (11/10/2024 6:01 PM EST): BMI 46.04 Eat 3 meals a day, especially breakfast Eat healthy and focus on healthyfood choices daily fruits, vegetables, grains, low fat milk, low carbohydrate and fat Maintain healthy weight as this will lower your risk for many health problems. Exercise counseling 11/06/2024 08/22/20 Assessment & Plan (11/10/2024 6:03 PM EST): BMI 46.04 No routine exercise sedentary lifestyle Exercise at least 30 mins daily and increase as tolerated Class 3 severe obesity with body mass index (BMI) of 45.0 to 49.9 in adult 11/06/2024 Assessment & Plan (11/10/2024 6:04 PM EST): BMI 46.04 Dietary and exercise counselling Otitis media with effusion, bilateral 11/06/2024 08/22/2025 Trochanteric bursitis of right hip 12/06/2023 01/26/2024 Assessment & Plan (12/12/2023 3:58 PM EST): Take tylenol prn + Heat to affected area Refer to PT Encounters Date Type Department Care Team Description 09/01/[address] [address] Renee Muhammad RN Lab Orders 08/22/2025 11:15 AM EDT Procedure Visit [address] [address] Juana Pink DO Encounter for well woman exam with routine gynecological exam (Primary Dx); Breast cancer screening by mammogram; Candidal intertrigo; Obstructive sleep apnea; Bilateral carpal tunnel syndrome; Morbid obesity (CMS/HCC) (HCC); Encounter for immunization 08/22/2025 Travel 08/19/[address] [address] Juana Pink DO Durable Medical Equipment (DME: CPAP Order) 08/13/[address] [address] Juana Pink DO Chart Prep 08/01/[address] [address] Juana Pink DO Results 07/11/[address] [address] Juana Pink DO Results 07/08/2025 11:30 AM EDT Office Visit [facility] [address] [place] [address] Juana Pink DO Essential hypertension (Primary Dx); Fatty liver; Allergic rhinitis, unspecified seasonality, unspecified trigger; Meralgia paresthetica of right side; Peripheral polyneuropathy; Daily headache; Sleep-disordered breathing; Acute pain of left hip; Healthcare maintenance; Dietary counseling; Exercise counseling 07/08/2025 Travel 07/07/2025 Telephone [facility] [address] [place] [address] Juana Pink DO Chart Prep 06/30/2025 Patient Outreach [address] [address] Jauna Pink DO Pre-visit Planning ((Unable to reach for PVP screening, LVM) to be completed in office ) 06/24/[address] [address] Juana Pink DO Recall Appointment 06/24/2025 Travel from Last 3 Months Immunizations Immunization Administration Dates Next Due Hep B, adult 07/26/2023 Influenza injectable quadriv alent IIV4 with preservative 08/07/2015 Influenza injectable quadrivalent preservative f ree 07/26/2023 Influenza, seasonal, injectable, preservative fr ee 08/22/2025,12/02/2024 Moderna Covid-19 Vaccine 12+ 12/27/2021,07/22/20 21 TD [...] your housing situation today? I have eleanor sing 07/08/[address] you li [...] Mass Index 47.13 08/22/2025 11:27 AM EDT Plan of Treatment Health Maintenance Due Date Last Done Comments Family Planning (PISQ) 2000 HPV Vaccines (1 - 3-dose series) 2000 Hepatitis A Vaccines (1 of 2 - Risk 2-dose series) 2004 Hepatitis B Vaccines (2 of 3 - 19+ 3-dose series) 08/23/2023 07/26/2023 SDOH Screening 12/06/2024 12/06/2023 Mammogram 02/26/2025 08/29/2024, 05/0 12/2023, 08/25/2023, Additional history exists COVID-19 Vaccine ( - season) 2025 12/27/2021, 07/22/2021 Alcohol/Substance Use Screening 07/08/2026 07/08/2025 Depression Screening 07/08/2026 07/08/2025, 07/08/20 25 Diabetes: Hemoglobin A1C 07/08/2026 025, 03/12/2024, 01/26/2023, Additional history exists Disability Screening 08/22/2026 08/22/2025 Tobacco Screening 08/22/2026 08/22/2025 HPV/Cotest 09/14/2027 09/14/2022, 04/22, 03/06/2018, Additional history exists Cervical Cancer Screening 08/22/2028 Pap Smear 08/22/2028 08/22/2025, 08/24, 05/06/2022 Lipid Panel 07/08/2030 07/08/2025, 02/21, 01/26/2023, Additional history exists DTaP/Tdap/Td Vaccines (3 - Td or Tdap) 11/30/2031 11/30/2021, 10/05/2011, 02/07/2006 Zoster Vaccines (1 of 2) 2035 RSV Patients and Patients Aged 60 years or older (1 - 1-dose 75+ series) 2060 HIV Screening Completed 07/08/2025, 02/21, 03/12/2024, Additional history exists Hepatitis C Screening Completed 07/08/2025 , 03/12/2024, 03/12/2024, Additional history exists Influenza Vaccine Completed 08/22/2025, , 07/26/2023, Additional history exists HIB Vaccines Aged Out [...] well woman exam with routine gynecological exam POLYSOMNOGRAM Routine 07/16/2025 Sleep-disordered breathing ALBUMIN, RANDOM URINE W/CREATININE Routine 07/10/2025 10:40 AM EDT Essential hypertension Fatty liver Allergic rhinitis, unspecified seasonality, unspecified trigger Meralgia paresthetica of right side Peripheral polyneuropathy Daily headache Sleep-disordered breathing Healthcare maintenance Dietary [...] Meralgia paresthetica of right side Peripheral polyneuropathy Daily headache Sleep-disordered breathing Healthcare maintenance Dietary counseling Exercise counseling Acute pain of left hip RPR (MONITOR) W/REFL TITER Routine 07/08/2025 1:09 PM EDT Essential hypertension Fatty liver Allergic rhinitis, unspecified seasonality, unspecified trigger Meralgia paresthetica of right side Peripheral polyneuropathy Daily headache Sleep-disordered breathing Healthcare maintenance Dietary counseling Exercise counseling Acute pain of left hip HEPATITIS C AB W/REFL TO HCV RNA, QN, PCR Routine 07/08/2025 1:09 PM EDT Essential hypertension Fatty liver Allergic rhinitis, unspecified seasonality, unspecified trigger Meralgia paresthetica of right side Peripheral polyneuropathy Daily headache Sleep-disordered breathing Healthcare maintenance Dietary counseling Exercise counseling Acute pain of left hip HIV 1/2 ANTIGEN/ANTIBODY, FOURTH GENERATION W/RFL Routine 07/08/2025 1:09 PM EDT Essential hypertension Fatty liver Allergic rhinitis, unspecified seasonality, unspecified trigger Meralgia paresthetica of right side Peripheral polyneuropathy Daily headache Sleep-disordered breathing Healthcare maintenance Dietary counseling Exercise counseling Acute pain of left hip CBC Routine 07/08/2025 1:09 PM EDT Essential hypertension Fatty liver Allergic rhinitis, unspecified seasonality, unspecified trigger Meralgia paresthetica of right side Peripheral polyneuropathy Daily headache Sleep-disordered breathing Healthcare maintenance Dietary counseling Exercise counseling Acute pain of left hip BASIC METABOLIC PANEL Routine 07/08/2025 1:09 PM EDT Essential hypertension Fatty liver Allergic rhinitis, unspecified seasonality, unspecified trigger Meralgia paresthetica of right side Peripheral polyneuropathy Daily headache Sleep-disordered breathing Healthcare maintenance Dietary counseling Exercise counseling Acute pain of left hip HEMOGLOBIN A1C Routine 07/08/2025 1:09 PM EDT Essential hypertension Fatty liver Allergic rhinitis, unspecified seasonality, unspecified trigger Meralgia paresthetica of right side Peripheral polyneuropathy Daily headache Sleep-disordered breathing Healthcare maintenance Dietary counseling Exercise counseling Acute pain of left hip HEPATIC FUNCTION PANEL Routine 07/08/2025 1:09 PM EDT Essential hypertension Fatty liver Allergic rhinitis, unspecified seasonality, unspecified trigger Meralgia paresthetica of right side Peripheral polyneuropathy Daily headache Sleep-disordered breathing Healthcare maintenance Dietary counseling Exercise counseling Acute pain of left hip TSH Routine 07/08/2025 1:09 PM EDT Essential hypertension Fatty liver Allergic rhinitis, unspecified seasonality, unspecified trigger Meralgia paresthetica of right side Peripheral polyneuropathy Daily headache Sleep-disordered breathing Healthcare maintenance Dietary counseling Exercise counseling Acute pain of left hip LIPID PANEL, STANDARD Routine 07/08/2025 1:09 PM EDT Essential hypertension Fatty liver Allergic rhinitis, unspecified seasonality, unspecified trigger Meralgia paresthetica of right side Peripheral polyneuropathy Daily headache Sleep-disordered breathing Healthcare maintenance Dietary counseling Exercise counseling Acute pain of left hip VITAMIN D,25-OH,TOTAL,IA Routine 07/08/2025 1:09 PM EDT Essential hypertension Fatty liver Allergic rhinitis, unspecified seasonality, unspecified trigger Meralgia paresthetica of right side Peripheral polyneuropathy Daily headache Sleep-disordered breathing Healthcare maintenance Dietary counseling Exercise counseling Acute pain of left hip T4, FREE Routine 07/08/2025 1:09 PM EDT Essential hypertension Fatty liver Allergic rhinitis, unspecified seasonality, unspecified trigger Meralgia paresthetica of right side Peripheral polyneuropathy Daily headache Sleep-disordered breathing Healthcare maintenance Dietary counseling Exercise counseling Acute pain of left hip BI US BREAST LIMITED RIGHT Routine 08/29/2024 11:30 AM EST HPV MRNA E6/E7 REFLEX TO HPV 16, 18/45 Routine 09/14/2022 8:40 AM EST from Last 3 Months or Most Recently Relevant to Health Maintenance Results * Pap Smear (08/22/2025 1:23 PM EDT) Swab Cervical swab / Unknown 08/22/2025 1:23 PM EDT 08/25/2025 6:20 AM EST Narrative [facility] - 08/29/2025 3:32 PM EST ----- ------- Name: Miguel Angel Hall Age/Sex: 40/F : 1985 Unit#: [id number] Attend Dr: Re08/22/25 Status: PRE REF Location: [facility] Disch: ----- ------- SPEC : [id number] RECD: 08/25/25 STATUS: ARIA EBONI NUM: [id number] MICHELLE: 08/22/25-1323 [facility] DR: Juana Pink DO ENTERED: 08/25/25 SP TYPE: Pap Smr OZZIE DR: ORDERED: Pap Smear, PAP path review Interpretation General Category: Negative for intraepithelial lesion/malignancy. Adequacy: Endocervical component present. Interpretation: Reactive cellular changes. Hyperkeratosis Coccobacilli consistent with shift in vaginal joshua. Clinical Information LMP: 07/29/25 Previous PAP test: Other surgery: Other history: Material Received ThinPrep-Cervical ----- ------- Signed (signature on file) Shaye Otoole 08/29/25 1532 ----- ------- END OF REPORT Juana Pink DO LAB CYTOLOGY ORDERABLES Nidia sales Result [facility] [address] [place] [address] [phone] * Chlamydia/N. Gonorrhoeae RNA, TMA, Vaginal (08/22/2025 11:24 AM EDT) CT PCR NOT DETECTED Not Detect. [facility] Comment:A not detected test result [...] psychologicalconsequences. NG PCR NOT DETECTED Not Detect. [facility] Comment:A not detected test result [...] MICROBIOLOGY - GENERAL O RDERABLES Final Result Performing Organization Address [facility] Co de Phone Number [facility] [address] [place] [phone] * Polysomnography (07/16/2025) Juana Pink DO [facility] ORDERABLES Nidia l Result * Albumin, Random Urine W/Creatinine (07/10/2025 10:40 AM EDT) Creatinine, Urine 120.37 mg/dL [facility] Microalbumin Urine 27.0 mg/L [facility] Microalbum Creatinine Ratio Ur 22.4 <30 ug/mg cr [facility] Comment:Albumin/Creatinine R atio Reference Ranges: Normal: < 30 ug/mg creatinine Microalbuminuria: 30 - 300 ug/mg creatinineClinical Albuminuria: > 300 ug/mg creatinine Urine (Urine, Random) 07/10/2025 10:40 AM EDT 07/10/2025 11:52 AM EDT Juana Pink DO LAB URINE ORDERABLES Final R esult Performing Organization Address [facility] Co de Phone Number [facility] [address] [place] [phone] [phone] * XR Hip 2 or 3 Views Left (07/08/2025 1:38 PM EDT) Anatomical Region Laterality Modality Lower Extremities, Hip Left Radiograp hic Imaging 07/08/2025 1:38 PM EDT Narrative 07/08/2025 1:50 PM EDT [facility] [address] [place] [address] XRay Report Signed Patient: Miguel Angel Hall MR#: [id number] : 1985 Acct:[id number] Age/Sex: 40 / F ADM Date: 07/08/25 Loc: HO.HHCX Attending Dr: Juana Pink DO Ordering Physician: Juana Pink DO Date of Service: 07/08/25 Procedure(s): XR hip LT min 2V Accession Number(s): [id number] cc: Juana Pink DO Reason for Exam: [...] 07/08/25 1347 DD/ 1338 TD/TT: 07/08/25 1339 Waxing Machine Operator Helper: Procedure Note Donotuseinterpreter, Image - 07/08/2025 [facility] [address] [place] [address] XRay Report Signed Patient: Miguel Angel Hall TMR#: [id number] : 1985Acct:[id number] Age/Sex: 40 / FADM Date: 07/08/25 Loc: HO.HHCX Attending Dr: Juana Pink DO Ordering Physician: Juana Pink DO Date of Service: 07/08/25 Procedure(s): XR hip LT min 2V Accession Number(s): [id number] cc: Juana Pink DO Reason for Exam: [...] 07/08/25 1347 DD/ 1338 TD/TT: 07/08/25 1339 Waxing Machine Operator Helper: us Juana Pink DO IMG XR PROCEDURES Edited Res ult - Final * XR Lumbar Spine 2-3 Views (07/08/2025 1:38 PM EDT) Anatomical Region Laterality Modality Spine, L-spine Radiographic Temitope ging 07/08/2025 1:38 PM EDT Narrative 07/08/2025 1:48 PM EDT [address] [address] XRay Report Signed Patient: Miguel Angel Hall MR#: [id number] : 1985 Acct:[id number] Age/Sex: 40 / F ADM Date: 07/08/25 Loc: HO.HHCX Attending Dr: Juana Pink DO Ordering Physician: Juana Pink DO Date of Service: 07/08/25 Procedure(s): XR lumbar spine 2-3V Accession Number(s): [id number] cc: Juana Pink DO Reason for Exam: [...] 07/08/25 1344 DD/ 1338 TD/TT: 07/08/25 1339 Waxing Machine Operator Helper: Procedure Note Donotuseinterpreter, Image - 07/08/[address] [address] XRay Report Signed Patient: Miguel Angel Hall TMR#: [id number] : 1985Acct:[id number] Age/Sex: 40 / FADM Date: 07/08/25 Loc: HO.HHCX Attending Dr: Juana Pink DO Ordering Physician: Juana Pink DO Date of Service: 07/08/25 Procedure(s): XR lumbar spine 2-3V Accession Number(s): [id number] cc: Juana Pink DO Reason for Exam: [...] 07/08/25 1344 DD/ 1338 TD/TT: 07/08/25 1339 Waxing Machine Operator Helper: us Juana Pink DO IMG XR PROCEDURES Edited Res ult - Final * Vitamin D, 25-Hydroxy, Total, Immunoassay (07/08/2025 1:09 PM EDT) Vitamin D 25-OH Total 31.8 >30 ng/mL [facility] Comment: Health Based Reference Values*< 20 ng/mL Ebvcrmhpa92-58 ng/mL Insufficient> 30 ng/mL Sufficient*Vamsi SEGUNDO. N [...] ORDERABLES Final R esult Performing Organization Address [facility] Co de Phone Number [facility] [address] [place] [phone] * Hepatitis C Antibody with Reflex to HCV, RNA, Quantitative, Real-Time PCR (07/08/2025 1:09 PM EDT) Pathologist [facility] Hepatitis C Antibody Nonreactive Nonreactive [facility] Comment:Antibodies to HCV no t detected; does not exclude early acuteHCV infection. Blood Venous blood specimen / Unknown 07/08/2025 1:09 PM EDT 07/08/2025 4:04 PM EDT Juana Pink DO LAB BLOOD ORDERABLES Final R [facility] Performing Organization Address [facility] de Phone Number [facility] [address] [place] [phone] * Alpha-Fetoprotein, Tumor Marker (07/08/2025 1:09 PM EDT) Pathologist [facility] Alpha Fetoprotein 5.8 ng/mL [facility] Comment:Reference Range: <6. 1The use of AFP as a tumor marker in females is not recommended.This test was performed using the Fang Coulterchemiluminescent method. Values obtained fromdifferent assay methods cannot be usedinterchangeably. AFP levels, regardless ofvalue, should not be interpreted as absoluteevidence of the presence or absence of disease.THIS TEST WAS PERFORMED AT:[facility] [place] [phone] KEMP MD Blood Venous blood specimen / Unknown 07/08/2025 1:09 PM EDT 07/08/2025 4:04 PM EDT Juana Pink DO LAB BLOOD ORDERABLES Final R esult Performing Organization Address [facility]/State/ZIP Co de Phone Number [facility] [address] [place] [phone] [phone] * RPR (Monitor) with Reflex to??Titer (07/08/2025 1:09 PM EDT) RPR (Monitor) w/Refl Titer NON-REACTI VE NON-REACT RAO [facility] Comment:THIS TEST WAS PERFOR MED AT:[facility] [place] [phone] KEMP MD Rapid Plasma Reagin Ab Titer TNP [facility] Blood Venous blood specimen / Unknown 07/08/2025 1:09 PM EDT 07/08/2025 4:04 PM EDT us Juana Pikn DO LAB BLOOD ORDERABLES Final R esult [facility] [address] [place] [phone] * HIV-1/2 Antigen and Antibodies, Fourth Generation, with Reflexes (07/08/2025 1:09 PM EDT) Pathologist [facility] HIV AB/AG Nonreactive Nonreactive [facility] Comment:HIV-1 p24 Ag and/or HIV-1/HIV-2 Ab not detected.A test result that is nonreactive does not exclude thepossibility of exposure to or infection with HIV-1 and/orHIV-2. Nonreactive results in this assay for individualswith prior exposure to HIV-1 and/or HIV-2 may be due toantigen and antibody levels that are below the limit ofdetection of this assay.The [employer] HIV Ag/Ab Combo assay result andsupplemental assay results should be interpreted inconjunction with the patient's clinical presentation,history and other laboratory results. If the results areinconsistent with clinical evidence, additional testing issuggested to confirm the result. Blood Venous blood specimen / Unknown 07/08/2025 1:09 PM EDT 07/08/2025 4:04 PM EDT us Juana Pink DO LAB BLOOD ORDERABLES Final R esult [facility] [address] [place] [phone] * (ABNORMAL) CBC (07/08/2025 1:09 PM EDT) White Blood Count 4.4(L) 4.8 - 10.8 X10*3/uL [facility] Red Blood Count 4.19(L) 4.20 - 5.50 X10*6/uL [facility] Hemoglobin 11.4(L) 12.0 - 16.0 g/dl [facility] Hematocrit 35.3(L) 37.0 - 47.0 % [facility] Mean Corpuscular Volume 84.2 80.0 - 98.0 fL [facility] Mean Corpuscular Hemoglobin 27.2 27.0 - 33.0 pg [facility] Mean Corpuscular HGB Conc 32.3 31.0 - 35.0 g/dl [facility] Red Cell Distribution Width 13.9 11.0 - 16.0 % [facility] Platelet Count 275 160 - 400 X10*3/uL [facility] Mean Platelet Volume 10.3 9.4 - 12.3 fL [facility] NRBC Pct Auto 0.0 0.0 - 0.2 /100WBC [facility] NRBC Abs Auto 0.000 0.0 - 0.012 X10*3/uL [facility] Blood Venous blood specimen / Unknown 07/08/2025 1:09 PM EDT 07/08/2025 4:04 PM EDT us Juana Pink DO LAB BLOOD ORDERABLES Final R esult [facility] [address] [place] [phone] * TSH (07/08/2025 1:09 PM EDT) Thyroid Stimulating Hormone 1.49 0.32 - 4.0 uIU/mL [facility] Comment:TSH 3rd Generation ( [facility]) Blood Venous blood specimen / Unknown 07/08/2025 1:09 PM EDT 07/08/2025 4:04 PM EDT Juana Carrascorachelclarence LAB BLOOD ORDERABLES Final R esult Performing Organization Address City/[facility]/ZIP Co de Phone Number [facility] [address] [place] [phone] * T4, Free (07/08/2025 1:09 PM EDT) Pathologist [facility] Free T4 (Free Thyroxine) 0.93 0.71 - 1.85 ng/dL [facility] Blood Venous blood specimen / Unknown 07/08/2025 1:09 PM EDT 07/08/2025 4:04 PM EDT Juana Joesph LAB BLOOD ORDERABLES Final R esult Performing Organization Address City/[facility] Co de Phone Number [facility] [address] [place] [phone] * Hemoglobin A1c (07/08/2025 1:09 PM EDT) Pathologist [facility] Hemoglobin A1c 5.9 <6.0 % [facility] Comment:Hemoglobin A1C Refer ence Range Adults: 4.8 - 6.0 % Non diabetic: < 6.0 % Goal: < 7.0 %Additional Action Suggested: > 8.0 %Note: Hemoglobin A1c results are invalid for patients with abnormal amounts of HbF. Blood transfusions may impact the HbA1c concentration in the patient sample. Estimated Average Glucose 123 mg/dL [facility] Comment:eAG = Estimated ave rage glucose which is %A1C expressed asaverage glucose, using the formula of the W9V-YzvxdyfIqqtece Glucose study (ADAG), Diabetes Care, Vol.31,#8,2007 Blood Venous blood specimen / Unknown 07/08/2025 1:09 PM EDT 07/08/2025 4:11 PM EDT Juana Joesph DO LAB BLOOD ORDERABLES Final R esult Performing Organization Address [facility] Co de Phone Number [facility] [address] [place] [phone] * Hepatic Function Panel (07/08/2025 1:09 PM EDT) Bilirubin, Total 0.2 0.0 - 1.0 mg/dL [facility] Bilirubin, Direct 0.2 0.0 - 0.5 mg/dL [facility] Aspartate Amino Transferase 26 5 - 31 U/L [facility] Alanine Aminotransferase 18 0 - 31 U/L [facility] Total Protein 7.8 6.5 - 8.0 g/dL [facility] Albumin Level 4.4 3.5 - 5.0 g/dL [facility] Alkaline Phosphatase 65 39 - 117 U/L [facility] Blood Venous blood specimen / Unknown 07/08/2025 1:09 PM EDT 07/08/2025 4:04 PM EDT Juana Pink DO LAB BLOOD ORDERABLES Final R esult Performing Organization Address [facility] Co de Phone Number [facility] [address] [place] [phone] * Lipid Panel, Standard (07/08/2025 1:09 PM EDT) Triglycerides 46 <150 mg/dL [facility] Comment:Desirable Triglyceri de: less than 150 mg/dLBorderline High Triglyceride 150-199 mg/dLHigh Triglyceride: 200-499 mg/dLVery High Triglyceride: greater than or equal to 5OO mg/dL Cholesterol 126 <200 mg/dL [facility] Comment:Desirable Cholestero l: less than 200 mg/dLBorderline High Cholesterol: 200-239 mg/dLHigh Cholesterol: greater than 239 mg/dL LDL Cholesterol Calculated 73 <100 mg/dL [facility] Comment:Desirable LDL: less than 100 mg/dLNear Optimal/Above Optimal LDL: 110- 129 mg/dLBorderline High LDL: 130-159 mg/dLHigh LDL: 160-189 mg/dLVery High LDL: greater than or equal to 190 mg/dL HDL Cholesterol 44 >40 mg/dL [facility] Comment:Desirable HDL: great er than 40 mg/dL Note: This HDL assay may give artificially low results in patients with liver disease. Blood Venous blood specimen / Unknown 07/08/2025 1:09 PM EDT 07/08/2025 4:04 PM EDT us Juana Pink DO LAB BLOOD ORDERABLES Final R esult [facility] [address] [place] [phone] * (ABNORMAL) Basic Metabolic Panel (07/08/2025 1:09 PM EDT) Sodium 139 135 - 145 mmol/L [facility] Potassium 3.8 3.3 - 5.1 mmol/L [facility] Chloride 105 96 - 108 mmol/L [facility] Carbon Dioxide 27 22 - 29 mmol/L [facility] Anion Gap 11(L) 12 - 20 [facility] Urea Nitrogen (BUN) 16 9 - 16 mg/dL [facility] Creatinine, Serum 0.83 0.5 - 1.4 mg/dL [facility] Estimated Glomerular Filt Rate >60 [facility] Comment:Chronic Kidney Disea se: Estimated GFR < 60 mL/min/1.82x2Aibsru Kidney Disease: Estimated GFR < 15 mL/min/1.73m2 Glucose 89 60 - 115 mg/dL [facility] Calcium 9.3 8.4 - 10.2 mg/dL [facility] Blood Venous blood specimen / Unknown 07/08/2025 1:09 PM EDT 07/08/2025 4:04 PM EDT Juana Pink DO LAB BLOOD ORDERABLES Final R esult [facility] [address] [place] [address] [phone] * BI US Breast Limited Right (08/29/2024 11:30 AM EST) Anatomical Region Laterality Modality Breast Right Ultrasound 08/29/2024 11:3 0 AM EST Narrative 09/06/2024 12:26 PM EST [address] [place] [address] Ultrasound Report Signed Patient: Miguel Angel Hall MR#: [id number] : 1985 Acct:[id number] Age/Sex: 39 / F ADM Date: 08/29/24 Loc: HO.MAMMO Attending Dr: Juana Pink DO Ordering Physician: Juana Pink DO Date of Service: 08/29/24 Procedure(s): US breast RT limited mamm only Accession Number(s): [id number] cc: Juana Pink DO EXAMINATION: US DIAGNOSTIC [...] by: Ami Monteiro DO 09/06/2024 12:23 PM [facility] Dictated By: Ami Monteiro DO Signed By: <Electronically signed by Ami Monteiro DO in OV> 09/06/24 1223 DD/ 1130 TD/TT: 08/29/24 1144 Waxing Machine Operator Helper: Procedure Note Donotuseinterpreter, Image - [facility]/06/[facility] [address] [place], [place] [address] Ultrasound Report Signed Patient: Miguel Angel Hall TMR#: [id number] : 1985Acct:[id number] Age/Sex: 39 / FADM Date: 08/29/24 Loc: MAMMO Attending Dr: Juana Pink DO Ordering Physician: Juana Pink DO Date of Service: 08/29/24 Procedure(s): US breast RT limited mamm only Accession Number(s): [id number] cc: Juana Pink DO EXAMINATION: US DIAGNOSTIC [...] Ami Monteiro DO 09/06/2024 12:23 PM EST RP Dictated By: Ami Monteiro DO Signed By: <Electronically signed by Ami Monteiro DO in OV> 09/06/24 1223 DD/ 1130 TD/TT: 08/29/24 1144 Waxing Machine Operator Helper: Juana Pink DO IMG US PROCEDURES Final Resu lt * HPV mRNA E6/E7 w/Reflex to HPV Genotypes 16, 18/45 (09/14/2022 8:40 AM EST) HPV nRNA E6/E7 Not Detected Not Detected [facility] Comment:Methodology: Transcr iption-Mediated AmplificationThis assay detects E6/E7 viral messenger RNA (mRNA) from 14high-risk HPV types (16,18,31,33,35,39,45,51,52,56,58,59,66,68).Cervical sources are required for HPV testing.If a vaginal source from a patient who has had atotal hysterectomy with removal of cervix wassubmitted, please contact the testing laboratoryfor alternative testing options.For additional information, please refer tohttp://education.Compete/faq/POJ877z4(This link if provided for information/educational purposes only.)THIS TEST WAS PERFORMED AT:[facility] [place] [address],[place] [address]XAFZHANDREW KEMP MD HPV mRNA E6/E7 [facility] HPV 16 RNA [facility] HPV 18/45 RNA [facility] 09/14/2022 8:40 AM EST 09/14/2022 8:40 AM EST [facility] External Provider LAB CYT OLOGY ORDERABLES Final Result [facility] [address] [place] [phone] from Last 3 Months or Most Recently Relevant to Health Maintenance [place] [address] [place] [address] C3 Care Teams Management Sme Relationship Specialty Start Date End Date Juana Pink DO [address] [place] [address] PCP - General Family Medicine 10/23/18
--- OUTSIDE RECORDS SUMMARY | 2025-09-01 16:47 | XMS_ITS | Encounter Summary ---
Author Organization [employer] Address [address] [place] [address] [address] [place] [address] Care Team Providers Care Solutions Specialist Name Role Phone Juana Pink DO Primary Care Provider + [phone] Reason for Visit * Reason Onset Date Comments Nurse Triage 07/08/2024 Encounter Details Date Type Department Care Team ([facility] st Contact Info) Description 07/08/2024 Telephone [facility] [address] [place], [place] [phone] Juana Pink DO [address] [place], [place] [phone] Nurse Triage Social History Tobacco Use Types [...] a fibroid which has shrunk since last HOSPICE DIRECTOR visit. Pt. Took a urine test today that came back negative. Pt. States she did have a miscarriage x 2 years ago and lost a baby at 5 months gestation. Pt. Does see [facility]. Oshea from [facility] but, she see's Dr Pink as PCP and Dr. Oshea she states Is not always available . Pt. Wants to check vaginal area and do a blood test. I advised pt. To go to ED but pt. Declines to go to ED. I advised pt. That she should call her regular LINE ANALYST in the am to see if they can squeeze her in tomorrow, otherwise, pt. Wants to see bingo cashier at [facility]. Pt. Will call HOSPICE DIRECTOR in am but she states That she knows she will not be available and is requesting appt. With [facility] HOSPICE DIRECTOR. Appt. Made with Helga for 1:15pm tomorrow [...] documented as of this encounter Care Teams Solutions Specialist Relationship Specialty Start Date End Date Juana Pink DO [address] [place] [address] PCP - General Family Medicine 10/23/18 documented as of this encounter
== END 2025-09-01 14:29 | disposition home or self-care (01) ==
LOC: HO.LNP 14:28
PROVIDERS: Visit Provider Family Medicine
DX: Z01.419 Encounter for gynecological examination (general) (routine) without abnormal findings (principal); Z20.2 Contact with and (suspected) exposure to infections with a predominantly sexual mode of transmission; Z11.51 Encounter for screening for human papillomavirus (HPV)
CPT/HCPCS: 87491; 87591; 87626; 88175

== ENCOUNTER 2025-09-23 10:00 | Outpatient (REF) | payer MEDICAID, SELFPAY ==
--- NOTE | 2025-09-23 10:03 | EMG_ITS ---
Chief complaint: Numbness and tingling Referred by: Juana Almeida DO Procedure done: NCS and EMG of bilateral upper extremities Bilateral median and ulnar motor studies were performed. Bilateral median and ulnar mixed sensory studies were performed radial sensory studies were performed and paraspinal muscles were tested with a needle. Finding: Bilateral median motor distal latencies were significantly prolonged. Similar pattern was noted in median mixed distal latencies with mild slowing of conduction velocity. Impression: [id number] bilateral median neuropathy across carpal tunnel Coding [phone] [facility]2 [facility]
--- OUTSIDE RECORDS SUMMARY | 2025-09-23 11:17 | XMS_ITS | Clinical Summary ---
Author Organization [facility] ity Address [address] [place] [address] Care Team Providers Care Residential Mental Health Worker Name Role Phone Unavailable Primary Care Provider [...] Screening 09/24/2022 Depression Screening 10/23/2024 COVID-19 Vaccine (1 - 2024-2 6 season) 2025 Influenza Vaccine (#1) 2025 RSV [...]
--- OUTSIDE RECORDS SUMMARY | 2025-09-23 11:17 | XMS_ITS | Encounter Summary ---
Author Organization [employer] Address [address] [place] [address] [address] [place] [address] Care Team Providers Care Director Of Property Management Name Role Phone Juana Pink DO Primary Care Provider + [phone] Reason for Visit * Reason Onset Date Comments Nurse Triage 01/24/2024 Encounter Details Date Type Department Care Team ([facility] st Contact Info) Description 01/24/2024 Telephone [facility] [address] [place], [place] [phone] Juana Pink DO [address] [place], [place] [phone] Nurse Triage Social History Tobacco Use Types [...] 12:58 PM EDT Roshan Juarez MA * How difficult have these problems made it for you to do your work, take care of things at home, or get along with other people? Answer Date of Assessment Author Somewhat difficult 01/26/2024 12:58 PM EDT Roshan Welsh MA * Over the last 2 weeks, [...] Several days 01/26/2024 12:58 PM EDT Paula Jaurez MA Feeling down, depressed, or hopeless Nearly [...] documented as of this encounter Care Teams Director Of Property Management Relationship Specialty Start Date End Date Juana Pink DO [address] [place] [phone] PCP - General Family Medicine 10/23/18 documented as of this encounter
--- OUTSIDE RECORDS SUMMARY | 2025-09-23 11:18 | XMS_ITS | Encounter Summary ---
Author Organization [employer] Address [address] [place] [id number] Care Team Providers Care Fleet Sales Associate Name Role Phone Juana Pink DO Primary Care Provider + [phone] Reason for Visit * Reason Onset Date Comments Prior Authorization 09/08/2025 PA: Rober und Encounter Details Date Type Department Care Team ([facility] st Contact Info) Description 09/08/2025 Telephone [facility] [address] [place], [place] [phone] Juana Pink DO [address] [place], [place] [phone] Prior Authorization ( PA: Sammie) Social History Tobacco Use Types Packs/Day Years [...] * Telephone Encounter - Ruby Butler - 09/08/2025 3:47 PM EST PA Pending Provider Note. * Telephone Encounter - Rosalba Riley - 09/08/2025 12:48 PM EST Tc from pt stating a PA is needed for Tirzepatide-Weight Management (Zepbound) 2.5 MG/0.5ML solution auto-injector Contact pt at [phone] documented in this encounter Plan of Treatment Not on file documented as of this encounter Visit Diagnoses Not on filedocumented in this encounter Additional Health Concerns Assessment Noted Time PHQ-9 Depression Total Score: 4 07/08/20 25 11:48 AM EDT documented as of this encounter Care Teams Fleet Sales Associate Relationship Specialty Start Date End Date Juana Pink DO [address] [place] [address] PCP - General Family Medicine 10/23/18 documented as of this encounter
--- OUTSIDE RECORDS SUMMARY | 2025-09-23 11:18 | XMS_ITS | Clinical Summary ---
Author Organization [employer] Address [address] [place] [address] 7 [place] [address] Care Team Providers Care Manager College Name Role Phone LunaJuana del toro Primary Care Provider + [phone] Allergies No known active allergies Medications * This document contains information received from the source organization and may not represent a complete record from that organization. Diclofenac Sodium 1 % gelIndications:Tr ochanteric bursitis [...] 3 5 09/28/20 25 Active nystatin (Mycostatin) 371180 UNIT/GM powder Apply topically 2 times daily. 240 g 3 5 08/31/20 26 Active Tirzepatide-Weigh t Management (Zepbound) 2.5 MG/0.5ML solution auto-injector Inject 0.5 mL (2.5 mg) under the skin 1 (one) time per week. 2 mL 3 5 Active Active Problems Problem Noted Date Diagnosed Date Adjustment disorder with mixed anxiety and depre ssed mood 09/05/2025 Bilateral carpal tunnel syndrome 08/31/2025 Obstructive sleep [...] female 08/07/2015 Nystagmus 08/07/2015 BMI 45.0-49.9, adult ([facility]) 08/07/2015 Assessment & Plan (11/10/2024 6:25 PM [...] to affected area Refer to PT Encounters * This document contains information received from the source organization and may not represent a complete record from that organization. Date Type Department Care Team Description 09/08/[address] [address] Juana Pink DO Prior Authorization ( PA: Sammie) 09/05/2025 12:00 PM EST [address] [facility] [place] [address] Juana Pink DO 09/05/2025 Travel 09/04/2025 Travel 09/02/2025 Results Follow-Up [address] [facility] [place] [address] Juana Pink DO Pap Smear, Chlamydia/N. Gonorrhoeae RNA, TMA, Vaginal 09/01/2025 Telephone [facility] [place] [address] Renee Muhammad, gas shovel operator Orders 08/22/2025 11:15 AM EDT Procedure Visit [facility] [place] [address] Juana Pink DO Encounter for well woman exam with routine gynecological exam (Primary Dx); Breast cancer screening by mammogram; Candidal intertrigo; Obstructive sleep apnea; Bilateral carpal tunnel syndrome; Morbid obesity (CMS/HCC) (HCC); Encounter for immunization 08/22/2025 Travel 08/19/[address] [address] Juana Pink DO Durable Medical Equipment (DME: CPAP Order) 08/13/[address] [address] Juana Pink DO Chart Prep 08/01/[address] [address] Juana Pink DO Results 07/11/[address] [address] Juana Pink DO Results 07/08/2025 11:30 AM EDT Office Visit [address] [address] Juana Pink DO Essential hypertension (Primary Dx); Fatty liver; Allergic rhinitis, unspecified seasonality, unspecified trigger; Meralgia paresthetica of right side; Peripheral polyneuropathy; Daily headache; Sleep-disordered breathing; Acute pain of left hip; Healthcare maintenance; Dietary counseling; Exercise counseling 07/08/2025 Travel 07/07/[address] [address] Juana Pink DO Chart Prep 06/30/2025 Patient Outreach [address] [address] Juana Pink DO Pre-visit Planning ((Unable to reach for PVP screening, LVM) to be completed in office ) 06/24/[address] [address] Juana Pink DO Recall Appointment 06/24/2025 Travel [...] the past 12 months, has t he [email or web address], gas, oil or water [employer] threatened to shut off services in your [...] Sign Reading Time Taken Comments Blood Pressure 128/80 09/05/2025 12:28 PM EST Pulse 92 09/05/2025 12:28 PM EST Temperature 36.8 C (98.3 F) 09/05/2025 12:28 PM EST Respiratory Rate 20 09/05/2025 12:28 PM EST Oxygen Saturation 98% 09/05/2025 12:28 PM EST Inhaled Oxygen Concentration - - Weight 134 kg (295 lb) 09/05/2025 12:28 PM EST Height 167.6 cm (5' 6 ) 09/05/2025 12:28 PM EST Body Mass Index 47.61 09/05/2025 12:28 PM EST Plan of Treatment Health Maintenance Due Date Last Done Comments Family Planning (PISQ) 2000 HPV Vaccines (1 - 3-dose series) 2000 Hepatitis A Vaccines (1 of 2 - Risk 2-dose series) 2004 Hepatitis B Vaccines (2 of 3 - 19+ 3-dose series) 08/23/2023 07/26/2023 SDOH Screening 12/06/2024 12/06/2023 Mammogram 02/26/2025 08/29/2024, 0512/2023, 08/25/2023, Additional history exists COVID-19 Vaccine ( season) 2025 12/27/2021, 07/22/2021 Alcohol/Substance Use Screening 07/08/2026 07/08/2025 Depression Screening 07/08/2026 07/08/2025, 07/08/20 25 Diabetes: Hemoglobin A1C 07/08/2026 025, 03/12/2024, 01/26/2023, Additional history exists Cervical Cancer Screening 08/22/2026 Disability Screening 08/22/2026 08/22/2025 Pap Smear 08/22/2026 08/22/2025, 08/24, 05/06/2022 Tobacco Screening 09/05/2026 09/05/2025 Lipid Panel 07/08/2030 07/08/2025, 02/21, 01/26/2023, Additional history exists HPV/Cotest 08/22/2030 08/22/2025, 08/24, 05/06/2022, Additional history exists DTaP/Tdap/Td Vaccines (3 - [...] well woman exam with routine gynecological exam HPV DNA, LOW/HIGH RISK Routine 08/22/2025 1:23 PM EDT CHLAMYDIA/N. GONORRHOEAE RNA, TMA, UROGENITAL Routine 08/22/2025 [...] LIMITED RIGHT Routine 08/29/2024 11:30 AM EST from Last 3 Months or Most Recently Relevant to Health Maintenance Results * (ABNORMAL) HPV DNA, Low/High Risk (08/22/2025 1:23 PM EDT) HPV High Risk Positive(A) Negative [facility] HPV Genotype 16 Negative Negative [facility] HPV Genotype 18 Negative Negative [facility] Comment:HPV testing performe d at [facility] (CLIA#[id number]), [address] [place] [address].Testing for HPV was performed using the Michel EMILY 6800system. The presence of HPV in the female genital tract isassociated with a number of diseases, including cervicalcarcinoma. The HPV DNA high risk pool tests for HPV 31, 33,35, 39, 45, 51, 52, 56, 58, 59, 66 and 68. The testing forHPV 16 and 18 genotypes has also been performed. A positiveresult indicates detection of nucleic acid sequences fromone or more subtypes, whereas a negative result indicatessuch sequences were not detected. 08/22/2025 1:23 PM EDT 08/25/2025 6:20 AM EST us Juana Pink DO LAB BLOOD ORDERABLES Final R esult [facility] [address] [place] [address] [phone] * Pap Smear (08/22/2025 1:23 PM EDT) Swab Cervical swab / Unknown 08/22/2025 1:23 PM EDT 08/25/2025 6:20 AM EST Narrative [facility] - 09/02/2025 10:22 AM EST ----- ------- Name: Miguel Angel Hall Age/Sex: 40/F : 1985 Unit#: [id number] Attend Dr: Juana Pink DO Re09/01/25 Status: [facility] ----- ------- SPEC : [id number] RECD: 08/25/25 STATUS: ARIA GUIDRYEunice NUM: [id number] MICHELLE: 08/22/25-[address] [facility] [address]: Juana Pink DO ENTERED: 08/25/25 SP TYPE: Pap Smr OZZIE DR: ORDERED: Pap Smear, PAP path review Addendum Addendum 1 Entered: 09/02/25 HPV High Risk: Positive HPV Genotyping 16: Negative HPV Genotyping 18: Negative Addendum Signed (signature on file) ROSE MARIE Malik (ASCP) 09/02/25 1022 ----- ------- Interpretation General Category: Negative for intraepithelial lesion/malignancy. Adequacy: Endocervical component present. Interpretation: Reactive cellular changes. Hyperkeratosis Coccobacilli consistent with shift in vaginal joshua. Clinical Information LMP: 07/29/25 Previous PAP test: Other surgery: Other history: Material Received ThinPrep-Cervical ----- ------- Signed (signature on file) Shaye Linden 08/29/25 1532 (signature on file) ROSE MARIE Malik (ASCP) 09/02/25 1022 ----- ------- END OF REPORT Juana Pink DO LAB CYTOLOGY ORDERABLES Nidia sales Result [facility] [address] [place] [phone] * Chlamydia/N. Gonorrhoeae RNA, TMA, Vaginal (08/22/2025 11:24 AM EDT) CT PCR NOT DETECTED Not Detect. [facility] Comment:A not detected test result does [...] psychologicalconsequences. NG PCR NOT DETECTED Not Detect. [facility] Comment:A not detected test result does [...] MICROBIOLOGY - GENERAL O RDERABLES Final Result [facility] [address] [place] [phone] * Polysomnography (07/16/2025) Juana Pink DO SLEEP CENTER ORDERABLES Nidia l Result * Albumin, Random Urine W/Creatinine (07/10/2025 10:40 AM EDT) Creatinine, Urine 120.37 mg/dL [facility] Microalbumin Urine 27.0 mg/L H [facility] Microalbum Creatinine Ratio Ur 22.4 <30 ug/mg cr [facility] Comment:Albumin/Creatinine R atio Reference Ranges: Normal: < 30 ug/mg creatinine Microalbuminuria: 30 - 300 ug/mg creatinineClinical Albuminuria: > 300 ug/mg creatinine Urine (Urine, Random) 07/10/2025 10:40 AM EDT 07/10/2025 11:52 AM EDT us Juana Pink DO LAB URINE ORDERABLES Final R esult Performing Organization Address City/State/[facility] Co de Phone Number [facility] [address] [place] [phone] * XR Hip 2 or 3 Views Left (07/08/2025 1:38 PM EDT) Anatomical Region Laterality Modality Lower Extremities, Hip Left Radiograp hic Imaging 07/08/2025 1:38 PM EDT Narrative 07/08/2025 1:50 PM EDT [address] [address] XRay Report Signed Patient: Miguel Angel Hall MR#: [id number] : 1985 Acct:[id number] Age/Sex: 40 / F ADM Date: 07/08/25 Loc: HO.HHCX Attending Dr: Juana Pink DO Ordering Physician: Juana Pink DO Date of Service: 07/08/25 Procedure(s): XR hip LT min 2V Accession Number(s): [id number] cc: Juana Pink DO Reason for Exam: [...] 07/08/25 1347 DD/ 1338 TD/TT: 07/08/25 1339 Veneer Cutter: Procedure Note Donotuseinterpreter, Image - 07/08/[address] [address] XRay Report Signed Patient: Miguel Angel Hall TMR#: [id number] : 1985Acct:[id number] Age/Sex: 40 / FADM Date: 07/08/25 Loc: .HHCX Attending Dr: Juana Pink DO Ordering Physician: Juana Pink DO Date of Service: 07/08/25 Procedure(s): XR hip LT min 2V Accession Number(s): [id number] cc: Juana Pink DO Reason for Exam: [...] Cisneros MD in OV> 07/08/25 1347 DD/ TD/TT: 07/08/251338 Veneer Cutter: Juana Pink DO IMG XR PROCEDURES Edited Res ult - Final * XR Lumbar Spine 2-3 Views (07/08/2025 1:38 PM EDT) Anatomical Region Laterality Modality Spine, L-spine Radiographic Temitope ging 07/08/2025 1:38 PM EDT Narrative 07/08/2025 1:48 PM EDT [facility] [address] [place] [address] XRay Report Signed Patient: Miguel Angel Hall MR#: [id number] : 1985 Acct:[id number] Age/Sex: 40 / F ADM Date: 07/08/25 Loc: HO.HHCX Attending Dr: Juana Pink DO Ordering Physician: Juana Pink DO Date of Service: 07/08/25 Procedure(s): XR lumbar spine 2-3V Accession Number(s): [id number] cc: Juana Pink DO Reason for Exam: [...] Jennings MD in OV> 07/08/25 1344 DD/ TD/TT: 09/16/25 1339 Veneer Cutter: Procedure Note Donotuseinterpreter, Image - 07/08/2025 [facility] [address] [place] [address] XRay Report Signed Patient: Miguel Angel Hall TMR#: [id number] : 1985Acct:[id number] Age/Sex: 40 / FADM Date: 07/08/25 Loc: HO.HHCX Attending Dr: Juana Pink DO Ordering Physician: Juana Pink DO Date of Service: 07/08/25 Procedure(s): XR lumbar spine 2-3V Accession Number(s): [id number] cc: Juana Pink DO Reason for Exam: [...] 07/08/25 1344 DD/ 1338 TD/TT: 07/08/25 1339 Veneer Cutter: Juana Pink DO IMG XR PROCEDURES Edited Res ult - Final * Vitamin D, 25-Hydroxy, Total, Immunoassay (07/08/2025 1:09 PM EDT) Vitamin D 25-OH Total 31.8 >30 ng/mL [facility] Comment: Health Based Reference Values*< 20 ng/mL [id number] ng/mL Insufficient> 30 ng/mL Sufficient*Vamsi SEGUNDO. N [...] ORDERABLES Final R esult Performing Organization Address [facility] Co de Phone Number [facility] [address] [place] [phone] * Hepatitis C Antibody with Reflex to HCV, RNA, Quantitative, Real-Time PCR (07/08/2025 1:09 PM EDT) Hepatitis C Antibody Nonreactive Nonreactive [facility] Comment:Antibodies to HCV no t detected; does not exclude early acuteHCV infection. Blood Venous blood specimen / Unknown 07/08/2025 1:09 PM EDT 07/08/2025 4:04 PM EDT Juana Pink DO LAB BLOOD ORDERABLES Final R esult Performing Organization Address City/[facility]/ZIP Co de Phone Number [facility] [address] [place] [phone] * Alpha-Fetoprotein, Tumor Marker (07/08/2025 1:09 PM EDT) Alpha Fetoprotein 5.8 ng/mL [facility] Comment:Reference Range: <6. 1The use of AFP as a tumor marker in females is not recommended.This test was performed using the Fang Coulterchemiluminescent method. Values obtained fromdifferent assay methods cannot be usedinterchangeably. AFP levels, regardless ofvalue, should not be interpreted as absoluteevidence of the presence or absence of disease.THIS TEST WAS PERFORMED AT:[facility] [place] [phone] KEMP MD Blood Venous blood specimen / Unknown 07/08/2025 1:09 PM EDT 07/08/2025 4:04 PM EDT us Juana Pink DO LAB BLOOD ORDERABLES Final R esult [facility] [address] [place] [phone] * RPR (Monitor) with Reflex to??Titer (07/08/2025 1:09 PM EDT) Pathologist [facility] RPR (Monitor) w/Refl Titer NON-REACTI VE NON-REACT RAO [facility] Comment:THIS TEST WAS PERFOR MED AT:[facility] [place] [phone] KEMP MD Rapid Plasma Reagin Ab Titer TNP [facility] Blood Venous blood specimen / Unknown 07/08/2025 1:09 PM EDT 07/08/2025 4:04 PM EDT us Juana Pink DO LAB BLOOD ORDERABLES Final R esult [facility] [address] [place] [phone] * HIV-1/2 Antigen and Antibodies, Fourth Generation, with Reflexes (07/08/2025 1:09 PM EDT) [facility] HIV AB/AG Nonreactive Nonreactive [facility] Comment:HIV-1 p24 Ag and/or HIV-1/HIV-2 Ab not detected.A test result that is nonreactive does not exclude thepossibility of exposure to or infection with HIV-1 and/orHIV-2. Nonreactive results in this assay for individualswith prior exposure to HIV-1 and/or HIV-2 may be due toantigen and antibody levels that are below the limit ofdetection of this assay.The SMART HIV Ag/Ab Combo assay result andsupplemental assay results should be interpreted inconjunction with the patient's clinical presentation,history and other laboratory results. If the results areinconsistent with clinical evidence, additional testing issuggested to confirm the result. Blood Venous blood specimen / Unknown 07/08/2025 1:09 PM EDT 07/08/2025 4:04 PM EDT us Juana Pink DO LAB BLOOD ORDERABLES Final R esult [facility] [address] [place] [phone] * (ABNORMAL) CBC (07/08/2025 1:09 PM EDT) [facility] White Blood Count 4.4(L) 4.8 - 10.8 X10*3/uL [facility] Red Blood Count 4.19(L) 4.20 - 5.50 X10*6/uL [facility] Hemoglobin 11.4(L) 12.0 - 16.0 g/dl [facility] Hematocrit 35.3(L) 37.0 - 47.0 % [facility] Mean Corpuscular Volume 84.2 80.0 - 98.0 fL [facility] Mean Corpuscular Hemoglobin 27.2 27.0 - 33.0 pg [facility] Mean Corpuscular HGB Conc 32.3 31.0 - 35.0 g/dl [facility] Red Cell Distribution Width 13.9 11.0 - 16.0 % [facility] Platelet Count 275 160 - 400 X10*3/uL [facility] Mean Platelet Volume 10.3 9.4 - 12.3 fL [facility] NRBC Pct Auto 0.0 0.0 - 0.2 /100WBC [facility] NRBC Abs Auto 0.000 0.0 - 0.012 X10*3/uL [facility] Blood Venous blood specimen / Unknown 07/08/2025 1:09 PM EDT 07/08/2025 4:04 PM EDT [facility] ORDERABLES Final R esult Performing Organization Address City/[facility]/ZIP Co de Phone Number [facility] [address] [place] [phone] * TSH (07/08/2025 1:09 PM EDT) Thyroid Stimulating Hormone 1.49 0.32 - 4.0 uIU/mL [facility] Comment:TSH 3rd Generation ( [employer]) Blood Venous blood specimen / Unknown 07/08/2025 1:09 PM EDT 07/08/2025 4:04 PM EDT [facility] B[facility]OD ORDERABLES Final R esult [facility] [address] [place] [phone] * T4, Free (07/08/2025 1:09 PM EDT) Free T4 (Free Thyroxine) 0.93 0.71 - 1.85 ng/dL [facility] Blood Venous blood specimen / Unknown 07/08/2025 1:09 PM EDT 07/08/2025 4:04 PM EDT us Juana Pink DO LAB BLOOD ORDERABLES Final R esult Performing Organization Address City/[facility]/ZIP Co de Phone Number [facility] [address] [place] [phone] * Hemoglobin A1c (07/08/2025 1:09 PM EDT) Hemoglobin A1c 5.9 <6.0 % [facility] Comment:Hemoglobin A1C Refer ence Range Adults: 4.8 - 6.0 % Non diabetic: < 6.0 % Goal: < 7.0 %Additional Action Suggested: > 8.0 %Note: Hemoglobin A1c results are invalid for patients with abnormal amounts of HbF. Blood transfusions may impact the HbA1c concentration in the patient sample. Estimated Average Glucose 123 mg/dL [facility] Comment:eAG = Estimated ave rage glucose which is %A1C expressed asaverage glucose, using the formula of the L5R-GkgwiomDzmvjrq Glucose study (ADAG), Diabetes Care, Vol.31,#8,May. 2007 Blood Venous blood specimen / Unknown 07/08/2025 1:09 PM EDT 07/08/2025 4:11 PM EDT us Juana Pink DO LAB BLOOD ORDERABLES Final R esult Performing Organization Address City/[facility]/ZIP Co de Phone Number [facility] [address] [place] [phone] * Hepatic Function Panel (07/08/2025 1:09 PM EDT) Bilirubin, Total 0.2 0.0 - 1.0 mg/dL [facility] Bilirubin, Direct 0.2 0.0 - 0.5 mg/dL [facility] Aspartate Amino Transferase 26 5 - 31 U/L [facility] Alanine Aminotransferase 18 0 - 31 U/L [facility] Total Protein 7.8 6.5 - 8.0 g/dL [facility] Albumin Level 4.4 3.5 - 5.0 g/dL [facility] Alkaline Phosphatase 65 39 - 117 U/L [facility] Blood Venous blood specimen / Unknown 07/08/2025 1:09 PM EDT 07/08/2025 4:04 PM EDT Juana Pink DO LAB BLOOD ORDERABLES Final R esult Performing Organization Address [facility]/ZIP Co de Phone Number [facility] [address] [place] [phone] * Lipid Panel, Standard (07/08/2025 1:09 PM EDT) Triglycerides 46 <150 mg/dL [facility] Comment:Desirable Triglyceri de: less than 150 mg/dLBorderline High Triglyceride 150-199 mg/dLHigh Triglyceride: 200-499 mg/dLVery High Triglyceride: greater than or equal to 5OO mg/dL Cholesterol 126 <200 mg/dL [facility] Comment:Desirable Cholestero l: less than 200 mg/dLBorderline High Cholesterol: 200-239 mg/dLHigh Cholesterol: greater than 239 mg/dL LDL Cholesterol Calculated 73 <100 mg/dL [facility] Comment:Desirable LDL: less than 100 mg/dLNear Optimal/Above Optimal LDL: 110- 129 mg/dLBorderline High LDL: 130-159 mg/dLHigh LDL: 160-189 mg/dLVery High LDL: greater than or equal to 190 mg/dL HDL Cholesterol 44 >40 mg/dL [facility] Comment:Desirable HDL: great er than 40 mg/dL Note: This HDL assay may give artificially low results in patients with liver disease. Blood Venous blood specimen / Unknown 07/08/2025 1:09 PM EDT 07/08/2025 4:04 PM EDT Juana Pink DO LAB BLOOD ORDERABLES Final R esult Performing Organization Address [facility]/ZIP Co de Phone Number [facility] [address] [place] [phone] * (ABNORMAL) Basic Metabolic Panel (07/08/2025 1:09 PM EDT) Sodium 139 135 - 145 mmol/L [facility] Potassium 3.8 3.3 - 5.1 mmol/L [facility] Chloride 105 96 - 108 mmol/L [facility] Carbon Dioxide 27 22 - 29 mmol/L [facility] Anion Gap 11(L) 12 - 20 [facility] Urea Nitrogen (BUN) 16 9 - 16 mg/dL [facility] Creatinine, Serum 0.83 0.5 - 1.4 mg/dL [facility] Estimated Glomerular Filt Rate >60 [facility] Comment:Chronic Kidney Disea se: Estimated GFR < 60 mL/min/1.30f5Suogxz Kidney Disease: Estimated GFR < 15 mL/min/1.73m2 Glucose 89 60 - 115 mg/dL [facility] Calcium 9.3 8.4 - 10.2 mg/dL [facility] Blood Venous blood specimen / Unknown 07/08/2025 1:09 PM EDT 07/08/2025 4:04 PM EDT us Juana Pink DO LAB BLOOD ORDERABLES Final R esult [facility] [address] [place] [phone] * BI US Breast Limited Right (08/29/2024 11:30 AM EST) Anatomical Region Laterality Modality Breast Right Ultrasound 08/29/2024 11:3 0 AM EST Narrative 09/06/2024 12:26 PM EST [facility] [address] [place] [address] Ultrasound Report Signed Patient: Miguel Angel Hall MR#: [id number] : 1985 Acct:[id number] Age/Sex: 39 / F ADM Date: 08/29/24 Loc: HO.MAMMO Attending Dr: Juana Pink DO Ordering Physician: Juana Pink DO Date of Service: 08/29/24 Procedure(s): US breast RT limited mamm only Accession Number(s): [id number] cc: Juana Pink DO EXAMINATION: US DIAGNOSTIC [...] 09/06/2024 12:23 PM [facility] Dictated By: Ami Monteiro DO Signed By: <Electronically signed by Ami Monteiro DO in OV> 09/06/24 1223 DD/ 1130 TD/TT: 08/29/24 1144 Veneer Cutter: Procedure Note Donotuseinterpreter, Image - 09/06/2024 [place] [facility] [address] [place], [place] [address] Ultrasound Report Signed Patient: Miguel Angel Hall TMR#: [id number] : 1985Acct:[id number] Age/Sex: 39 / FADM Date: 08/29/24 Loc: HO.MAMMO Attending Dr: Juana Pink DO Ordering Physician: Juana Pink DO Date of Service: 08/29/24 Procedure(s): US breast RT limited mamm only Accession Number(s): [id number] cc: Juana Pink DO EXAMINATION: US DIAGNOSTIC [...] 09/06/2024 12:23 PM [facility] Dictated By: Ami Monteiro DO Signed By: <Electronically signed by Ami Monteiro DO in OV> 09/06/24 1223 DD/ 1130 TD/TT: 08/29/24 1144 Veneer Cutter: us Juana Pink DO IMG US PROCEDURES Final Resu lt from Last 3 Months or Most Recently Relevant to Health Maintenance Insurance [employer] Care Teams Manager College Relationship Specialty Start Date End Date Juana Pink DO [address] [place] [phone] PCP - General Family Medicine 10/23/18
--- OUTSIDE RECORDS SUMMARY | 2025-09-23 11:18 | XMS_ITS | Encounter Summary ---
Author Organization [facility] Address [address] [place] [address] 7 [place] [address] Care Team Providers Care Hospitality Aide Name Role Phone Juana Pink DO Primary Care Provider + [phone] Reason for Visit * Reason Onset Date Comments Nurse Triage 07/08/2024 Encounter Details Date Type Department Care Team ([facility] st Contact Info) Description 07/08/2024 Telephone [facility] [address] [place], [place] [phone] Juana Pink DO [address] [place], [place] [phone] Nurse Triage Social History Tobacco Use Types [...] a fibroid which has shrunk since last RIGHT OF WAY WORKER visit. Pt. Took a urine test today that came back negative. Pt. States she did have a miscarriage x 2 years ago and lost a baby at 5 months gestation. Pt. Does see Dr. Oshea from [facility] but, she see's Dr Pink as PCP and Dr. Oshea she states Is not always available . Pt. Wants to check vaginal area and do a blood test. I advised pt. To go to ED but pt. Declines to go to ED. I advised pt. That she should call her regular RETAIL SUPPORT SPECIALIST in the am to see if they can squeeze her in tomorrow, otherwise, pt. Wants to see vp corporate development at [facility]. Pt. Will call RIGHT OF WAY WORKER in am but she states That she knows she will not be available and is requesting appt. With [facility] RIGHT OF WAY WORKER. Appt. Made with Helga for 1:15pm tomorrow [...] documented as of this encounter Care Teams Hospitality Aide Relationship Specialty Start Date End Date Juana Pink DO [address] [place] [phone] PCP - General Family Medicine 10/23/18 documented as of this encounter
== END 2025-09-23 10:01 | disposition home or self-care (01) ==
LOC: HO.NEURO 10:00
PROVIDERS: Visit Provider Family Medicine
DX: G56.03 Carpal tunnel syndrome, bilateral upper limbs (principal); R20.0 Anesthesia of skin; R20.2 Paresthesia of skin
CPT/HCPCS: 95886; 95911

== ENCOUNTER → 2025-09-23 10:03 | Outpatient (BNV) | payer MEDICAID, SELFPAY | PROVIDERS: Visit Provider Psychiatry & Neurology Neurology | DX: G56.03 Carpal tunnel syndrome, bilateral upper limbs (principal) | CPT/HCPCS: 95886; 95911 ==

== ENCOUNTER 2025-10-15 09:41 | Outpatient (REF) | payer MEDICAID, SELFPAY ==
--- OUTSIDE RECORDS SUMMARY | 2025-10-15 09:48 | XMS_ITS | Encounter Summary ---
Author Organization [facility] Address [address] [place] [address] 7 [place] [address] Care Team Providers Care Wheat Grower Name Role Phone Juana Pink DO Primary Care Provider + [phone] Reason for Visit * Reason Onset Date Comments Nurse Triage 07/08/2024 Encounter Details Date Type Department Care Team ([facility] st Contact Info) Description 07/08/2024 Telephone [facility] MEDICINE [address] [place], [place] [phone] Juana Pink DO [address] [place], [place] [phone] Nurse Triage Social History Tobacco Use Types [...] a fibroid which has shrunk since last COORDINATOR OF LIBRARY SERVICES visit. Pt. Took a urine test today that came back negative. Pt. States she did have a miscarriage x 2 years ago and lost a baby at 5 months gestation. Pt. Does see Dr. Oshea from [facility] but, she see's Dr Pink as PCP and Dr. Oshea she states Is not always available . Pt. Wants to check vaginal area and do a blood test. I advised pt. To go to ED but pt. Declines to go to ED. I advised pt. That she should call her regular SINGLE END SEWER in the am to see if they can squeeze her in tomorrow, otherwise, pt. Wants to see hazardous substances scientist at [facility]. Pt. Will call COORDINATOR OF LIBRARY SERVICES in am but she states That she knows she will not be available and is requesting appt. With [facility] COORDINATOR OF LIBRARY SERVICES. Appt. Made with Helga for 1:15pm tomorrow [...] documented in this encounter Plan of Treatment Upcoming Encounters Date Type Department Care Team (Late st Contact Info) Description 11/19/2025 9:30 AM EST Office Visit [facility] [address] [place] [address] Juana Pink DO [address] [place] [address] documented as of this encounter Visit Diagnoses Not on filedocumented in this encounter Additional Health Concerns Assessment Noted Time PHQ-9 Depression Total Score: 7 01/26/20 24 12:58 PM EDT documented as of this encounter Care Teams Wheat Grower Relationship Specialty Start Date End Date Juana Pink DO [address] [place] [address] PCP - General Family Medicine 10/23/18 documented as of this encounter
--- OUTSIDE RECORDS SUMMARY | 2025-10-15 09:48 | XMS_ITS | Encounter Summary ---
Author Organization [email or web address] Address [address] [place] [address] [place] [address] Care Team Providers Care Narcotics Agent Name Role Phone Juana Pink DO Primary Care Provider + [phone] Reason for Visit * Reason Onset Date Comments Appointment Request 10/09/2025 Encounter Details Date Type Department Care Team ([facility] st Contact Info) Description 10/09/2025 Telephone [facility] MEDICINE [address] [place], [place] [phone] Juana Pink DO [address] [place], [place] [phone] Appointment Request Social History Tobacco Use Types Packs/Day Years [...] encounter Miscellaneous Notes * Telephone Encounter - Debra Núñez [place] - 10/10/2025 10:04 AM EST TC was made to patient regarding message below, Pt needs PE for work. Pt needs at least a letter stating she is clear to work as she cannot wait till 11/19, pt might lose the job opportunity. This WENDY spoke with DR riley and DR Riley agreed on letter stating theres no contraindications noted and patient is able to work. Pt agreed with plan. * Telephone Encounter - Rosalba Riley - 10/09/2025 1:46 PM EST Tc from pt requesting a call back regarding a physical needed for work Contact at [phone] documented in this encounter Plan of Treatment Upcoming Encounters Date Type Department Care Team (Late st Contact Info) Description 11/19/2025 9:30 AM EST Office Visit [facility] [address] [place], [place] [phone] Juana Pink DO [address] [place], [place] [phone] documented as of this encounter Visit Diagnoses Not on filedocumented in this encounter Additional Health Concerns Assessment Noted Time PHQ-9 Depression Total Score: 4 07/08/20 25 11:48 AM EDT documented as of this encounter Care Teams Narcotics Agent Relationship Specialty Start Date End Date Juana Pink DO [address] [place] [address] PCP - General Family Medicine 10/23/18 documented as of this encounter
--- OUTSIDE RECORDS SUMMARY | 2025-10-15 09:48 | XMS_ITS | Encounter Summary ---
Author Organization [employer] Address [address] [place] [address] Care Team Providers Care Novelty Dipper Name Role Phone Juana Pink DO Primary Care Provider + [phone] Reason for Visit * Reason Onset Date Comments Prior Authorization 09/08/2025 PA: Rober und Encounter Details Date Type Department Care Team ([facility] st Contact Info) Description 09/08/2025 Telephone [facility] [address] [place], [place] [phone] Juana Pink DO [address] [place], [place] [phone] Prior Authorization ( PA: Sammie) Social History [...] * Telephone Encounter - Ruby Butler - 09/30/2025 1:06 PM EST Please completed last Note * Telephone Encounter - Rosalba Riley - 09/26/2025 11:48 AM EST Tc from pt requesting update on PA for Zepbound Contact pt at [phone] * Telephone Encounter - Ruby Butler - 09/08/2025 3:47 PM EST PA Pending Provider Note. * Telephone Encounter - Rosalba Riley - 09/08/2025 12:48 PM EST Tc from pt stating a PA is needed for Tirzepatide-Weight Management (Zepbound) 2.5 MG/0.5ML solution auto-injector Contact pt at [phone] documented in this encounter Plan of Treatment Upcoming Encounters Date Type Department Care Team (Late st Contact Info) Description 11/19/2025 9:30 AM EST Office Visit [facility] [address] [place] [address] Juana Pink DO [address] [place] [address] documented as of this encounter Visit Diagnoses Not on filedocumented in this encounter Additional Health Concerns Assessment Noted Time PHQ-9 Depression Total Score: 4 07/08/20 25 11:48 AM EDT documented as of this encounter Care Teams Novelty Dipper Relationship Specialty Start Date End Date Juana Pink DO [address] [place] [address] PCP - General Family Medicine 10/23/18 documented as of this encounter
--- OUTSIDE RECORDS SUMMARY | 2025-10-15 09:48 | XMS_ITS | Clinical Summary ---
Author Organization [facility] Address [address] [place] [address] 7 [place] [address] Care Team Providers Care Associate Chief Nurse Name Role Phone LunaJuana del toro Primary Care Provider + [phone] Allergies No known active allergies Medications * This document contains information received from the source organization and may not represent a complete record from that organization. Diclofenac Sodium 1 % gelIndications:T rochanteric bursitis of right hip Apply 2 g [...] 90 tablet 3 5 11/06/19 26 Active hydroCHLOROthiaz francisco (HYDRODiuril) 25 MG tabletIndication s:Uncontrolled hypertension Take 1 tab daily by mouth [...] 49.5 g 3 5 12/03/19 26 Active nystatin (Mycostatin) 503837 UNIT/GM powder Apply topically 2 times daily. 240 g 3 5 08/31/20 26 Active Tirzepatide-Weig ht Management (Zepbound) 2.5 MG/0.5ML solution auto-injector Inject 0.5 mL (2.5 mg) under the skin 1 (one) time per week. 2 mL 3 5 Active clotrimazole (Lotrimin) 1 % cream Apply topically if needed in the morning and at bedtime (rash) for up to 28 days. 60 g 3 5 09/28/20 25 Active Problems Problem Noted Date Diagnosed Date [...] female 08/07/2015 Nystagmus 08/07/2015 BMI 45.0-49.9, adult ([facility]) 08/07/2015 Assessment & Plan (11/10/2024 [...] organization. Date Type Department Care Team Description 10/09/2025 Telephone [facility] [place] [address] Juana Pink DO Appointment Request 09/08/2025 Telephone [facility] [place] [address] Juana Pink DO Prior Authorization ( PA: Sammie) 09/05/2025 12:00 PM EST Office Visit [facility] [place] [address] Juana Pink DO 09/05/2025 Travel 09/04/2025 Travel 09/02/2025 Results Follow-Up [facility] [place] [address] Juana Pink DO Pap Smear, Chlamydia/N. Gonorrhoeae RNA, TMA, Vaginal 09/01/2025 Telephone [facility] [place] [address] Renee Muhammad RN Lab Orders 08/22/2025 11:15 AM EDT Procedure Visit [facility] [address] [place] [address] Juana Pink DO Encounter for well woman exam with routine gynecological exam (Primary Dx); Breast cancer screening by mammogram; Candidal intertrigo; Obstructive sleep apnea; Bilateral carpal tunnel syndrome; Morbid obesity (CMS/HCC) (HCC); Encounter for immunization 08/22/2025 Travel 08/19/[address] [address] Juana Pink DO Durable Medical Equipment (DME: CPAP Order) 08/13/[address] [address] Juana Pink DO Chart Prep 08/01/[address] [address] Juana Pink DO Results from Last 3 Months Immunizations Immunization Administration [...] 09/05/2025 12:28 PM EST Plan of Treatment Upcoming Encounters Date Type Department Care Team (Late st Contact Info) Description 11/19/2025 9:30 AM EST Office Visit [facility] [address] [place] [address] Juana Pink DO [address] [place] [address] Health Maintenance Due Date Last Done Comments [...] gynecological exam POLYSOMNOGRAM Routine 07/16/2025 Sleep-disordered breathing HEPATITIS C AB W/REFL TO HCV RNA, [...] PM EDT) HPV High Risk Positive(A) Negative [facility] HPV Genotype 16 Negative Negative [facility] HPV Genotype 18 Negative Negative [facility] Comment:HPV testing performe d at [facility] (CLIA#[id number]), [address] [place] [address].Testing for HPV was performed using the Michel [...] DO LAB BLOOD ORDERABLES Final R esult [facility] [address] [place] [address] [phone] * Pap Smear (08/22/2025 1:23 PM EDT) Swab Cervical swab / Unknown 08/22/2025 1:23 PM EDT 08/25/2025 6:20 AM EST Narrative [facility] - 09/02/2025 10:22 AM EST ----- ------- Name: Miguel Angel Hall Age/Sex: 40/F : 1985 Unit#: [id number] Attend Dr: Juana Pink DO Re09/01/25 Status: DEP REF Location: HO.LNP Disch: ----- ------- SPEC : [id number] RECD: 08/25/25 STATUS: ARIA LYN NUM: [id number] MICHELLE: 08/22/25-3 [facility] DR: Juana Pink DO ENTERED: 08/25/25 SP TYPE: Pap Smr OTHR : ORDERED: Pap Smear, PAP path review Addendum [...] (signature on file) Shaye Xiang 08/29/25 1532 (signature on file) Abdiaziz Bonilla CT (ASCP) 09/02/25 1022 ----- ------- END OF REPORT us Juana Pink DO LAB CYTOLOGY ORDERABLES Nidia sales Result [facility] [address] [place] [phone] * Chlamydia/N. Gonorrhoeae RNA, TMA, Vaginal (08/22/2025 11:24 AM EDT) CT PCR NOT DETECTED Not Detect. [facility] Comment:A not detected test result does [...] psychologicalconsequences. NG PCR NOT DETECTED Not Detect. [facility] Comment:A not detected test result does [...] 11:24 AM EDT 08/22/2025 4:15 PM EDT us Juana Pink DO LAB MICROBIOLOGY - GENERAL O RDERABLES Final Result [facility] [address] [place] [phone] * Polysomnography (07/16/2025) Juana Pink [facility] ORDERABLES Nidia l Result * Hepatitis C Antibody with Reflex to HCV, RNA, Quantitative, Real-Time PCR (07/08/2025 1:09 PM EDT) Hepatitis C Antibody Nonreactive Nonreactive [facility] Comment:Antibodies to HCV no t detected; does not exclude early acuteHCV infection. Blood Venous blood specimen / Unknown 07/08/2025 1:09 PM EDT 07/08/2025 4:04 PM EDT Juana Pink LAB BLOOD ORDERABLES Final R esult [facility] [address] [place] [phone] * HIV-1/2 Antigen and Antibodies, Fourth Generation, with Reflexes (07/08/2025 1:09 PM EDT) HIV AB/AG Nonreactive Nonreactive [facility] Comment:HIV-1 p24 Ag and/or HIV-1/HIV-2 Ab not detected.A test result that is nonreactive does not exclude thepossibility of exposure to or infection with HIV-1 and/orHIV-2. Nonreactive results in this assay for individualswith prior exposure to HIV-1 and/or HIV-2 may be due toantigen and antibody levels that are below the limit ofdetection of this assay.The [employer] HIV Ag/Ab Combo assay result andsupplemental assay results should be interpreted inconjunction with the patient's clinical presentation,history and other laboratory results. If the results areinconsistent with clinical evidence, additional testing issuggested to confirm the result. Blood Venous blood specimen / Unknown 07/08/2025 1:09 PM EDT 07/08/2025 4:04 PM EDT Juana Pink DO LAB BLOOD ORDERABLES Final R esult Performing Organization Address City/[facility]/ZIP Co de Phone Number [facility] [address] [place] [address] [phone] * Hemoglobin A1c (07/08/2025 1:09 PM EDT) Hemoglobin A1c 5.9 <6.0 % [facility] Comment:Hemoglobin A1C Refer ence Range Adults: 4.8 - 6.0 % Non diabetic: < 6.0 % Goal: < 7.0 %Additional Action Suggested: > 8.0 %Note: Hemoglobin A1c results are invalid for patients with abnormal amounts of HbF. Blood transfusions may impact the HbA1c concentration in the patient sample. Estimated Average Glucose 123 mg/dL [facility] Comment:eAG = Estimated ave rage glucose which is %A1C expressed asaverage glucose, using the formula of the P7S-VayowfgBljayti Glucose study (ADAG), Diabetes Care, Vol.31,#8,May. 2007 Blood Venous blood specimen / Unknown 07/08/2025 1:09 PM EDT 07/08/2025 4:11 PM EDT Juana Libradoclarence DO LAB BLOOD ORDERABLES Final R esult Performing Organization Address City/[facility] Co de Phone Number [facility] [address] [place] [address] [phone] * Lipid Panel, Standard (07/08/2025 1:09 PM EDT) Triglycerides 46 <150 mg/dL [facility] Comment:Desirable Triglyceri de: less than 150 mg/dLBorderline High Triglyceride 150-199 mg/dLHigh Triglyceride: 200-499 mg/dLVery High Triglyceride: greater than or equal to 5OO mg/dL Cholesterol 126 <200 mg/dL [facility] Comment:Desirable Cholestero l: less than 200 mg/dLBorderline High Cholesterol: 200-239 mg/dLHigh Cholesterol: greater than 239 mg/dL LDL Cholesterol Calculated 73 <100 mg/dL [facility] Comment:Desirable LDL: less than 100 mg/dLNear Optimal/Above Optimal LDL: 110- 129 mg/dLBorderline High LDL: 130-159 mg/dLHigh LDL: 160-189 mg/dLVery High LDL: greater than or equal to 190 mg/dL HDL Cholesterol 44 >40 mg/dL [facility] Comment:Desirable HDL: great er than 40 mg/dL Note: This HDL assay may give artificially low results in patients with liver disease. Blood Venous blood specimen / Unknown 07/08/2025 1:09 PM EDT 07/08/2025 4:04 PM EDT Juana Pink DO LAB BLOOD ORDERABLES Final R esult [facility] [address] [place] [phone] * BI US Breast Limited Right (08/29/2024 11:30 AM EST) Anatomical Region Laterality Modality Breast Right Ultrasound 08/29/2024 11:3 0 AM EST Narrative 09/06/2024 12:26 PM EST [address] [place] [address] Ultrasound Report Signed Patient: Miguel Angel Hall MR#: [id number] : 1985 Acct:[id number] Age/Sex: 39 / F ADM Date: 08/29/24 Loc: HO.MAMMO Attending Dr: Juana Pink DO Ordering Physician: Juana Pink DO Date of Service: 08/29/24 Procedure(s): US breast RT limited mamm only Accession Number(s): [id number] cc: Juana Pink DO EXAMINATION: US DIAGNOSTIC [...] 09/06/2024 12:[address] [facility] Dictated By: Ami Monteiro DO Signed By: <Electronically signed by Ami Monteiro DO in OV> 09/06/24 1223 DD/ 1130 TD/TT: 08/29/24 1144 Hosiery Pairer: Procedure Note Donotuseinterpreter, Image - 09/06/2024 [facility] [address] [place] [address] Ultrasound Report Signed Patient: Miguel Angel Hall TMR#: [id number] : 1985Acct:[id number] Age/Sex: 39 / FADM Date: 08/29/24 Loc: HO.MAMMO Attending Dr: Juana Pink DO Ordering Physician: Juana Pink DO Date of Service: 08/29/24 Procedure(s): US breast RT limited mamm only Accession Number(s): [id number] cc: Juana Pink DO EXAMINATION: US DIAGNOSTIC [...] 09/06/2024 12:[address] [facility] Dictated By: Ami Monteiro DO Signed By: <Electronically signed by Ami Monteiro DO in OV> 09/06/24 1223 DD/ 1130 TD/TT: 08/29/24 1144 Hosiery Pairer: us Juana Pink DO IMG US PROCEDURES Final Resu lt from Last 3 Months or Most Recently Relevant to Health Maintenance Insurance [employer] C3 Care Teams Associate Chief Nurse Relationship Specialty Start Date End Date Juana Pink DO [address] [place] [phone] PCP - General Family Medicine 10/23/18
--- OUTSIDE RECORDS SUMMARY | 2025-10-15 09:48 | XMS_ITS | Clinical Summary ---
Author Organization [facility] Address [address] [place] [address] Care Team Providers Care Family Service Assistant Name Role Phone Unavailable Primary Care Provider [...]
--- OUTSIDE RECORDS SUMMARY | 2025-10-15 09:48 | XMS_ITS | Encounter Summary ---
Author Organization [employer] Address [address] [place] [address] [address] [place] [address] Care Team Providers Care Dynamo Repairer Name Role Phone Juana Pink DO Primary Care Provider + [phone] Reason for Visit * Reason Onset Date Comments Nurse Triage 01/24/2024 Encounter Details Date Type Department Care Team ([facility] st Contact Info) Description 01/24/2024 Telephone [facility] MEDICINE [address] [place], [place] [phone] Juana Pink DO [address] [place], [place] [phone] Nurse Triage Social History Tobacco Use Types [...] Description 11/19/2025 9:30 AM EST Office Visit [facility] MEDICINE [address] [place] [address] Juana Pink DO [address] [place] [address] documented as of this encounter Visit Diagnoses Not on filedocumented in this encounter Additional Health Concerns Assessment Noted Time PHQ-9 Depression Total Score: 0 11/18/19 23 1:58 PM EST documented as of this encounter Care Teams Dynamo Repairer Relationship Specialty Start Date End Date Juana Pink DO [address] [place] [address] PCP - General Family Medicine 10/23/18 documented as of this encounter
== END 2025-10-15 09:42 | disposition home or self-care (01) ==
LOC: HO.MAMMO 09:41
PROVIDERS: PCP Family Medicine; Visit Provider Family Medicine
DX: Z12.31 Encounter for screening mammogram for malignant neoplasm of breast (principal)
CPT/HCPCS: 77063; 77067

== ENCOUNTER → 2025-10-15 09:45 | Outpatient (BNV) | payer MEDICAID, SELFPAY | PROVIDERS: PCP Family Medicine; Visit Provider Internal Medicine | DX: Z12.31 Encounter for screening mammogram for malignant neoplasm of breast (principal) | CPT/HCPCS: 77063; 77067 ==